=== PATIENT | female | born 1935 | race Caucasian/White ===

== ENCOUNTER 2017-08-28 12:21 | Day surgery (SDC) | payer MEDICARE, OTHER ==
[~2017-08-28] VITALS: Ht 167.6 cm; Wt 68.0 kg
[~2017-08-28 12:21] MED LIST: ADVIL200 M1 PO; ALEVE220 M1 PO; ASPIRIN EC325 MG PO; AUGMENTIN 875-1 EACH PO; CALCIUM600 MG PO; COD LIVER OIL1 EAC1 PO; ESTRADIOL0.5 MG PO; KEFLEX500 MG PO; PROTONIX40 MG PO; TRIAMTERENE-HC1 EAC1 PO
[2017-08-28] MEDS ORDERED: FLOMAX0.4 MG PO (12:42)
[2017-08-28] MEDS ORDERED: NAPROXEN500 MG PO (12:43)
[2017-08-28] MEDS ORDERED: TYLENOL WITH C1 EACH PO (12:44)
--- NOTE | 2017-08-28 14:45 | NUR ---
08/28/17 1445 Concha Alexander 1439 PT ARRIVED IN PACU SLEEPY WITH HICCUPS. 1445 OXYGEN DECREASED TO 2L VIA NC WITH SATS 95%.
--- NOTE | 2017-08-29 10:37 | OR ---
[facility] [address] [place], [place] [address] Signed DATE OF OPERATION: 08/28/2017 SURGEON: Yumiko Willams MD PREOPERATIVE DIAGNOSES: 1. Longstanding gastroesophageal reflux, controlled with medication. 2. Known Rodriguez's esophagus, last upper endoscopy three years ago. POSTOPERATIVE DIAGNOSES: No sign of active esophagitis, minimal Rodriguez's esophagus, good flap valve procedure, esophagogastroduodenoscopy with biopsy. ANESTHESIA: Intravenous sedation, fentanyl 100 mcg, Versed 3 mg. INDICATION: This 81-year-old white woman is a patient of JUANA Ontiveros. She is known to me from the past. She is known to have Rodriguez's esophagus and has no symptoms currently of dysphagia. Surveillance upper endoscopy for her Rodriguez's is recommended as it has been three years since last upper endoscopy. She takes pantoprazole on daily basis and has good control of reflux symptoms. She understands the risks of bleeding, infection, and perforation related upper endoscopy and wished to proceed. FINDINGS: There is no evidence of neoplasm or stricture of the distal esophagus. Rodriguez's esophageal mucosa was noted, but it was not extensive and not worrisome in the slightest. The stomach appeared reasonably normal as did the duodenum. CLOtest biopsies were negative. Duodenum was negative grossly. The flap valve was quite good overall. DESCRIPTION OF PROCEDURE: The patient was brought to the endoscopy suite, given topical Hurricaine spray, hypopharyngeal anesthesia and placed in lateral decubitus position. A bite block was placed. Intravenous sedation was induced and with full cardiopulmonary monitoring, an Olympus video upper endoscope passed in the hypopharynx. The vocal cords appeared normal. Scope was advanced to the esophagus throughout its length, it was normal except in the distal portion where there was some evidence of Rodriguez's epithelium, but not much and certainly no worrisome findings of stricture, neoplasm, inflammation or other abnormality. The scope was passed in the stomach, which was insufflated with air. Rugal folds appeared normal. The antrum was normal as was the pylorus. Biopsies were Electronically Signed By: YUMIKO WILLAMS MD 08/29/17 [facility] PATIENT NAME: CALEB LESTER OPERATIVE REPORT DATE OF : 35 REPORT #: [id number] PHYSICIAN: YUMIKO WILLAMS MD PCP: RACHELE DOWD REPORT IS CONFIDENTIAL AND NOT TO BE RELEASED WITHOUT AUTHORIZATION [facility] [address], [place] [address] Signed taken of the antrum. The scope was passed through the pylorus into the duodenum, which looked normal. Biopsies were obtained there to assess for celiac disease. The scope was withdrawn and biopsy was then taken of the antrum for both MILA and pathologic testing. Retroflexed view of the GE junction showed to be quite good overall, certainly no sign of hiatal hernia. The scope was straightened, withdrawn to the distal esophagus where biopsies were taken the areas corresponding to Rodriguez's epithelium. Further withdrawal of scope showed the midesophagus and upper esophagus mildly inflamed, but not much and biopsies were obtained there as well. The scope was withdrawn and removed. The patient was taken to recovery in good condition. CONCLUDING DIAGNOSIS: Rodriguez's esophagus without evidence of dysplasia, neoplastic degeneration or even active inflammation. PLAN: Recommend continued use of pantoprazole. Return to see me in 1 year sooner if there are problems. MD MAKEDA Carlton/AYE /[id number] cc: JUANA Ontiveros Copies: RACHELE DOWD ~ Electronically Signed By: YUMIKO WILLAMS MD 08/29/17 1037 PATIENT NAME: CALEB LESTER OPERATIVE REPORT DATE OF : 35 REPORT #: [id number] PHYSICIAN: YUMIKO WILLAMS MD PCP: RACHELE DOWD REPORT IS CONFIDENTIAL AND NOT TO BE RELEASED WITHOUT AUTHORIZATION
== END 2017-08-28 15:15 | disposition home or self-care (01) ==
LOC: OPS 12:21 → DS 08-31 13:00
PROVIDERS: Surgery
PROC: 0DB78ZX Excision of Stomach, Pylorus, Via Natural or Artificial Opening Endoscopic, Diagnostic (ICD-10-PCS; 2017-08-28)
PROC: 0DB28ZX Excision of Middle Esophagus, Via Natural or Artificial Opening Endoscopic, Diagnostic (ICD-10-PCS; 2017-08-28)
PROC: 0DB98ZX Excision of Duodenum, Via Natural or Artificial Opening Endoscopic, Diagnostic (ICD-10-PCS; principal; 2017-08-28 13:00)
DX: K22.70 Barrett's esophagus without dysplasia (principal); K29.50 Unspecified chronic gastritis without bleeding; K21.0 Gastro-esophageal reflux disease with esophagitis; K59.09 Other constipation; Z88.2 Allergy status to sulfonamides; Z88.8 Allergy status to other drugs, medicaments and biological substances; Z98.890 Other specified postprocedural states
CPT/HCPCS: 99153; G0500; J2250; J3010; J7120

== ENCOUNTER 2020-06-28 06:05 | Day surgery (SDC) | payer MEDICARE, OTHER ==
[~2020-06-28 06:05] MED LIST changes: +FLOMAX0.4 MG PO; +NAPROXEN500 MG PO; +TYLENOL WITH C1 EACH PO
[2020-06-28] MEDS ORDERED: CIPROFLOXACIN500 MG PO (06:35)
--- NOTE | 2020-06-28 22:51 | OR ---
[facility] [address] [place], [place] [address] Signed DATE OF OPERATION: 06/28/2020 SURGEON: Yumiko Willams MD PREOPERATIVE DIAGNOSES: 1. Known Rodriguez's esophagus. 2. Recurrent urinary tract infection, bladder self-catheterization, known diverticular disease, assessed for colovesical fistula. POSTOPERATIVE DIAGNOSES: 1. Rodriguez's esophagus, diffuse esophagitis and small hiatal hernia. 2. Diffuse gastritis with mild antral erosions. 3. Diverticulosis of sigmoid and left colon, otherwise normal. PROCEDURES: 1. Esophagogastroduodenoscopy with biopsy. 2. Total colonoscopy to cecum. ANESTHESIA: Intravenous sedation, fentanyl 175 mcg and Versed 5 mg total. INDICATION: This 84-year-old white woman is a patient of JUANA Hall and is well known to me from the past. She is known to have Rodriguez's esophagus. Her last upper endoscopy was in 2018. Surveillance endoscopy is recommended on the basis of her Rodriguez's esophagus. She is taking pantoprazole persistently and has good symptom control of her reflux symptoms. Additionally, she has had recurrent urinary tract infection. She has now required to self catheterize due to bladder dysfunction. She is known to have had history of abdominal hysterectomy as well as diverticulosis. She has no pneumaturia complaints. She is to undergo colonoscopy as well in part to assess for possible colovesical fistula. FINDINGS: Upper endoscopy demonstrated Rodriguez's esophagus without sign of stricture or neoplasm. There were erosions of the antrum and mild diffuse gastritis and gastric polyps likely related to PPI use. The duodenum was normal. On colonoscopy, the prep was adequate, but there were still some fibrous materials Electronically Signed By: YUMIKO WILLAMS MD 06/28/20 1447 PATIENT NAME: CALEB LESTER OPERATIVE REPORT DATE OF : 35 REPORT #: [id number] PHYSICIAN: YUMIKO WILLAMS MD PCP: RACHELE GREENE PA-C REPORT IS CONFIDENTIAL AND NOT TO BE RELEASED WITHOUT AUTHORIZATION [facility] [address] [place], [place] [address] Signed including small and so on. Her compliance with dietary recommendations for bowel prep was uncertain. She did have extensive diverticular changes of the sigmoid and left colon. There was no evidence of polyps or inflammatory changes of the colon otherwise. DESCRIPTION OF PROCEDURE: The patient was brought to the endoscopy suite, given topical lidocaine spray anesthesia and placed in lateral decubitus position. A bite block was placed. Intravenous sedation was induced to point of slurred speech and nystagmus. The Olympus video upper endoscope was passed in the hypopharynx. The vocal cords were normal and scope was advanced to the esophagus, throughout its length, it showed mild chronic inflammation and the distal portion showed Rodriguez's esophagus, but no neoplasm or stricture. The scope was passed to the stomach without problem. Gastric polyps were noted. The antrum showed some superficial gastric erosions and mild diffuse gastritis. Pylorus was normal. Scope was passed through into the duodenum, which was normal. Biopsies were taken of the duodenum. Scope was withdrawn. A biopsy was then taken of the antrum and more proximal stomach gallstone undertaken. Retroflexed view of the GE junction showed a somewhat lax flap valve, but no sign of large hiatal hernia. Scope was withdrawn and multiple biopsies were taken of the distal esophagus and area of known Rodriguez's esophagus. Midesophageal biopsies were also obtained. The scope was removed and plans were made for colonoscopy. Additional sedation given. Digital rectal examination was normal. An Olympus video colonoscope was passed in the rectum and manipulated throughout the colon. Numerous diverticula were seen in the sigmoid and left colon. Her prep was adequate, but required a fair amount of irrigation so forth and ultimately, scope was passed to the right colon. Abdominal wall stabilization was required to allow for visualization of the cecum, but it could not be fully intubated proper. The scope was withdrawn from that point. There were no findings of polyps or colitis, only diverticular changes as previously noted. The scope was removed and the patient was taken to the recovery room in good condition. CONCLUDING DIAGNOSIS: 1. Mild diffuse gastritis with superficial erosions and Rodriguez's esophagus. 2. Diverticular changes of sigmoid and left colon. PLAN: Continued use of PPI would be appropriate in her case. High-fiber diet would be appropriate. If she should develop pneumaturia that would confirm some clinical suspicion with possible colovesical fistula. Otherwise, continued monitoring for urinary tract infection and etiologies related to it. She will return to the ongoing care of JUANA Hall. Electronically Signed By: YUMIKO WILLAMS MD 06/28/20 1559 PATIENT NAME: CALEB LESTER OPERATIVE REPORT DATE OF : 35 REPORT #: [id number] PHYSICIAN: YUMIKO WILLAMS MD PCP: RACHELE GREENE PA-C REPORT IS CONFIDENTIAL AND NOT TO BE RELEASED WITHOUT AUTHORIZATION [address] [address] Signed MD MAKEDA Carlton/MODL /[id number] cc: JUANA Hall Copies: RAJENDRA ALEX ~ Electronically Signed By: YUMIKO WILLAMS MD 06/28/20 2251 PATIENT NAME: MELLISAKARICALEB HEIDI OPERATIVE REPORT DATE OF : 35 REPORT #: [id number] PHYSICIAN: YUMIKO WILLAMS MD PCP: RACHELE GREENE PA-C REPORT IS CONFIDENTIAL AND NOT TO BE RELEASED WITHOUT AUTHORIZATION
--- NOTE | 2020-06-30 15:46 | PATH ---
[facility] [address] [place], [place] [address] Signed SPECIMEN(S): A DUODENUM SPECIMEN(S): B ANTRUM/PYLORUS SPECIMEN(S): C LOWER ESOPHAGUS SPECIMEN(S): D MIDDLE ESOPHAGUS SPECIMEN SOURCE: A. DUODENUM B. ANTRUM/PYLORUS C. LOWER ESOPHAGUS D. MIDDLE ESOPHAGUS CLINICAL HISTORY: History of GERD, Rodriguez's, chronic constipation, diverticulosis MICROSCOPIC DESCRIPTION: Histologic sections of all submitted blocks are examined by light microscopy. These findings, together with the gross examination, support the pathologic diagnosis. FINAL PATHOLOGIC DIAGNOSIS: A. Duodenum, biopsy: - Duodenal mucosa with no histopathologic abnormality. - Negative for increased intraepithelial lymphocytes or villous blunting. - Negative for dysplasia or malignancy. B. Stomach, antrum/pylorus, biopsy: - Antral/oxyntic mucosa with reactive gastropathy. - Negative for Helicobacter organisms on HE stain. - Negative for dysplasia or malignancy. C. Esophagus, lower, biopsy: - Squamous mucosa with mild reactive changes, suggestive of reflux esophagitis. - Cardia type gastric mucosa with chronic, inactive gastritis. - Negative for intestinal metaplasia, dysplasia, or malignancy. D. Esophagus, middle, biopsy: - Squamous mucosa with focal mild reactive changes. - Negative for increased intraepithelial eosinophils. - Negative for intestinal metaplasia, dysplasia, or malignancy. NAL:cml:C2NR GROSS DESCRIPTION: Four specimens are received in four containers, labeled "BC." A. The specimen, labeled "BC, one," and designated on the requisition PATIENT NAME: CALEB LESTER PATHOLOGY DATE OF : 35 REPORT #: [id number] PHYSICIAN: JAZMINE BRASWELL PCP: RACHELE GREENE PA-C REPORT IS CONFIDENTIAL AND NOT TO BE RELEASED WITHOUT AUTHORIZATION [facility] [address] [place], [place] [address] Signed "duodenum biopsy," is received in formalin and consists of two tejeda soft tissue fragments that measure 0.3 cm in greatest dimension. The specimen is entirely submitted in cassette (A1). B. The specimen, labeled "BC, 2," and designated on the requisition "antrum/pylorus biopsy," is received in formalin and consists of one elongated, tejeda soft tissue fragment that measures 0.5 cm in greatest dimension. The specimen is entirely submitted in cassette (B1). C. The specimen, labeled "BC, 3," and designated on the requisition "lower esophagus biopsy," is received in formalin and consists of multiple tejeda-white soft tissue fragments that measure less than 0.1 up to 0.5 cm in greatest dimension. The specimen is entirely submitted in cassette (C1). D. The specimen, labeled "BC, 4," and designated on the requisition "mid esophagus biopsy," is received in formalin and consists of two tejeda-white soft tissue fragments that measure 0.2 to 0.4 cm in greatest dimension. The specimen is entirely submitted in cassette (D1). AI (under the direct supervision of a pathologist) The Gross Description was prepared using a voice recognition system. The report was reviewed for accuracy; however, sound-alike word errors, addition and/or deletions may occur. If there is any question about this report, please contact Client Services. PERFORMING LABORATORY: The technical component was performed by [facility], [address] [place] [id number] (Supervisor Molding: Alla Castañeda MD; CLIA# [id number]). [facility], [address] [address] (CLIA# [id number]). Diagnostician: Darleen Bolivar MD Pathologist Electronically Signed 06/30/2020 Copies: ~ PATIENT NAME: CALEB LESTER PATHOLOGY DATE OF : 35 REPORT #: [id number] PHYSICIAN: JAZMINE PATHOLOGY PCP: RACHELE GREENE PA-C REPORT IS CONFIDENTIAL AND NOT TO BE RELEASED WITHOUT AUTHORIZATION
== END 2020-06-28 10:10 | disposition home or self-care (01) ==
LOC: OPS 06:05 → DS 06:05 → OPS 06:45 → DS 13:00
PROVIDERS: ATTEND Surgery
PROC: 0DB28ZX Excision of Middle Esophagus, Via Natural or Artificial Opening Endoscopic, Diagnostic (ICD-10-PCS; 2020-06-28)
PROC: 0DJD8ZZ Inspection of Lower Intestinal Tract, Via Natural or Artificial Opening Endoscopic (ICD-10-PCS; 2020-06-28)
PROC: 0DB38ZX Excision of Lower Esophagus, Via Natural or Artificial Opening Endoscopic, Diagnostic (ICD-10-PCS; principal; 2020-06-28 06:45)
PROC: 0DB78ZX Excision of Stomach, Pylorus, Via Natural or Artificial Opening Endoscopic, Diagnostic (ICD-10-PCS; 2020-06-28 06:45)
DX: K22.70 Barrett's esophagus without dysplasia (principal); K21.00 Gastro-esophageal reflux disease with esophagitis, without bleeding; K44.9 Diaphragmatic hernia without obstruction or gangrene; K25.9 Gastric ulcer, unspecified as acute or chronic, without hemorrhage or perforation; K29.50 Unspecified chronic gastritis without bleeding; K57.30 Diverticulosis of large intestine without perforation or abscess without bleeding; N39.0 Urinary tract infection, site not specified; K59.09 Other constipation; Z20.822 Contact with and (suspected) exposure to COVID-19; Z88.2 Allergy status to sulfonamides; Z88.8 Allergy status to other drugs, medicaments and biological substances; Z90.711 Acquired absence of uterus with remaining cervical stump
CPT/HCPCS: 88305; 99153; G0500; J2250; J3010; J7121; U0003

== ENCOUNTER 2020-09-24 23:47 | Emergency (ER) | payer MEDICARE, OTHER ==
[~2020-09-24] VITALS: Ht 167.6 cm; Wt 68.0 kg
[~2020-09-24 23:47] MED LIST changes: +CIPROFLOXACIN500 MG PO
[2020-09-25] MEDS ORDERED: METRONIDAZOLE500 MG PO (00:09)
== END 2020-09-25 01:50 | disposition home or self-care (01) ==
LOC: ED 23:47
DX: D69.0 Allergic purpura (principal); I10 Essential (primary) hypertension; Z88.2 Allergy status to sulfonamides; Z79.899 Other long term (current) drug therapy
CPT/HCPCS: 80053; 85025; 85610; 85730; 99283

== ENCOUNTER 2021-11-30 05:37 | Day surgery (SDC) | payer MEDICARE, OTHER ==
[~2021-11-30] VITALS: Ht 167.6 cm; Wt 63.6 kg
[~2021-11-30 05:37] MED LIST changes: +ALDACTONE25 MG PO; +CEPHALEXIN250 MG PO; +HYDROCHLOROTHIA25 MG PO; +HYDROCODON-ACE1 EA10 PO; +K-TAB ER20 MEQ PO; +LASIX20 MG PO; +LEVOFLOXACIN750 MG PO; +MAGNESIUM30 MG PO; +MELATONIN1 MG PO; +METRONIDAZOLE500 MG PO; +MYRBETRIQ25 MG PO; +NITROFURANTOIN100 MG PO; +OXYCODONE HCL5 MG PO; +SUCRALFATE1 GM PO
[2021-11-30] MEDS ORDERED: SPIRONOLACTONE25 MG PO (06:06)
[2021-11-30] MEDS ORDERED: METHENAMINE MA500 MG PO (06:08)
--- NOTE | 2021-11-30 07:44 | NUR ---
VISITED WITH PT PRIOR TO SURGERY. PT EXPRESSED LOOKING FORWARD TO THE SURGERY BEING OVER AND HAVING LESS PAIN. PRAYED WITH PT.
--- NOTE | 2021-11-30 09:02 | NUR ---
11/30/21 0902 [address] [place] 0881 PATIENT ARRIVES TO PACU SLEEPING. AWAKENS WITH VERBAL STIMULI. STAYS AWAKE. HEARING AID BACK IN LEFT EAR. PATIENT DENIES PAIN OR NAUSEA. RESP EVEN AND UNLABORED, ROOM AIR SATS >95%.
--- NOTE | 2021-11-30 09:32 | NUR ---
BEDSIDE REPORT RECEIVED FROM KENDRA RN, ALL QUESTIONS ANSWERED. PT LYING AWAKE IN BED VSS. DENIES PAIN AT THIS TIME. HIP INCISION COVERED WITH FOAM DRESSING, CDI. PT ORIENTED TO CALL LIGHT, WITH IN REACH. DENIES NEEDS AT THIS TIME.
--- NOTE | 2021-11-30 10:37 | NUR ---
PT AWAKE IN BED, DENIES PAIN AT THIS TIME. ICE PACK APPLIED TO LEFT HIP. PT STARTING TO BE ABLE TO MOVE BILATERAL LOWER EXTREMITIES. VSS. CALL LIGHT IN REACH.
--- NOTE | 2021-11-30 11:42 | NUR ---
PT RESTING IN BED AWAKE. C/O NAUSEA, REQUESTED CRACKERS DENIES FURTHER INTERVENTION AT THIS TIME. PT STATES SHE IS FEELING PAIN IN LEFT HIP, UNABLE TO RATE. STATES SHE WOULD LIKE TO HAVE LUNCH AND REASSESS NEED FOR PAIN MEDICATION AT THAT TIME. VSS. CALL LIGHT IN REACH.
--- NOTE | 2021-11-30 13:10 | NUR ---
APPROX 1300 PT ASSISTED TO RESTROOM 2 PERSON ASSIST WITH FRONT WHEELED WALKER. PT DENIED DIZZINESS OR LIGHTHEADEDNESS AT THAT TIME. PT INDEPENDENTLY STRAIGHT CATHED IN RESTROOM. UPON AMBULATION BACK TO BED, PT STATED "I FEEL LIGHT HEADED AND SWEATY" PT BECAME UNRESPONSIVE. PT FELL TO KNEE ONTO FLOOR, HELD UNDER ARMS BY 2 RN. ASSISTANCE CALLED. PT THEN BECAME RESPONSIVE, UNAWARE OF EVENTS. ASSISTED TO SHOWER CAHIR THEN 3-4 PERSON ASSIST TO WHEELCHAIR AND TO BED. VITAL SIGNS TAKEN AT 1310 BP 122/87 (99), HR 45, O2 98% ON RA. PT ALERT AND ORIENTED TO PERSON PLACE TIME AND SITUATION. BLOOD GLUCOSE 187. PT ON O2 MONITOR MAINTAINING 97-100% SATRUATIONS ON RA. PT C/O NAUSEA AND FEELING LIGHT HEADED. CALL LIGHT IN REACH.
--- NOTE | 2021-11-30 13:20 | NUR ---
ATTEMTED CALL x2 TO DR COELHO REGARDING PREVIOUS EVENTS AND PT FALL. NO ANSWER, MESSAGE LEFT TO CALL UNIT.
--- NOTE | 2021-11-30 14:10 | NUR ---
SPOKE WITH DR COELHO REGARDING PT BECOMING UNRESPONSIVE. STATES LIKELY FROM ANSETHSIA. NO NEW ORDERS AT THIS TIME.
--- NOTE | 2021-11-30 15:13 | NUR ---
PT RESTING IN BED, AWAKENS EASILY. VITALS SIGNS TAKEN, SEE CHART. STATES NAUSEA HAS IMPROVED. C/O 05/29 BURNING LEFT HIP PAIN, GIVEN SCHEDULED MEDICATIONS, SEE EMAR. ALERT AND ORIENTED X4. LEFT HIP INCISION COVERED WITH FOAM DRESSING, CLEAN DRY INTACT. PT DENIES FURTHER NEEDS AT THIS TIME. CALL LIGHT IN REACH.
--- NOTE | 2021-11-30 15:45 | NUR ---
Spoke with Amena. She states she lives alone in a condo. Neighbor is her friend and their doors are next to each other. Friend will help her with any needs. Pt denies she will have any needs as she has lives alone for many years. Pt has walker, cane, raised toilet seat and a shower chair. Her son is in town and will assist her as needed and will drive her home. She states son will grocery shop for her, but insist she will cook for herself. She denies any needs and plans on dc to home. Pt does states she cont. with slight nausea. Plan is for overnight stay and possibly home tomorrow if no further light headedness.
--- NOTE | 2021-11-30 15:55 | NUR ---
PT RESTING QUIETLY IN BED WITH EYES CLOSED, RESPIRATIONS 16, EVEN AND UNLABORED. AWAKENS EASILY. HR 58 AND O2 SAT 98% ON RA PER MONITOR. PT DENIES NEEDS AT THIS TIME. CALL LIGHT IN REACH.
--- NOTE | 2021-11-30 16:20 | NUR ---
PT RESTING IN BED, AWAKENS EASILY. DENIES NAUSEA AT THIS TIME, PAIN RATED 1/10. DENIES FURTHER NEEDS AT THIS TIME. CAll light in reach.
--- NOTE | 2021-11-30 17:38 | NUR ---
PT UP TO BEDSIDE COMMODE 2 PERSON ASSIST WITH FWW. TOLERATED WELL. DENIES DIZZINESS OR LIGHTHEADEDNESS. PT STRAIGHT CATH 250 ORANGE CLEAR URINE. BACK TO BED. ICE PACK APPLIED. PT DENIES FURTHER NEEDS AT THIS TIME. CALL LIGHT IN REACH.
--- NOTE | 2021-11-30 18:24 | NUR ---
PT SITTING UP AWAKE IN BED. STATES PAIN IS 3/10, GIVEN SCHEDULE MEDS, SEE EMAR. DENIES FURTHER NEEDS AT THIS TIME. CALL LIGHT IN REACH.
--- NOTE | 2021-11-30 18:46 | NUR ---
medications reconciled using pharmacy records and patient interview
--- NOTE | 2021-11-30 19:51 | NUR ---
Patient sleeping in bed. Call light within reach. Bed alarm in place.
--- NOTE | 2021-11-30 21:54 | NUR ---
VITALS COMPLETED. ASSISTED PT UP TO STANDING BY BED, NO NAUSEA, NO DIZZINESS REPORTED. ATTEMPTED TO STRAIGHT CATH, DIFFICULT R/T EQUIPMENT, SURGERY, SO BACK TO BED, THIS RN STRAIGHTED CATH FOR PT. FOOT SCD'S IN PLACE, TEDS, CPOX. FRESH ICE PACK TO LEFT HIP, FRESH ICE WATER, JOSE RAUL CRACKERS, AND VANILLA PUDDING GIVEN. PT WEARS HEATING AIDES, WILL REMOVE ONCE SHE IS READY TO SLEEP. REFUSED TV. RA SATS IN MID-HIGH 90'S.
--- NOTE | 2021-11-30 23:55 | NUR ---
Sleeping in bed. Call light within reach.
--- NOTE | 2021-12-01 04:21 | NUR ---
Uneventful shift. Alert and oriented. Calls appropriately. On RA. Lung sounds clear bilat. Breathing unlabored. Bowel sounds active. No BM on shift. +1 BLE edema. Saline locked. Using self-straight caths to void. Appropriate voiding amounts. Surg dressing has scant amount of serosang drainage. Patient's pain well controlled on scheduled pain meds. Has gotten up w/assist of 1 to bedside commode. Heels have remained floated. Cold therapy has been used on hip. CPOX in place.
--- NOTE | 2021-12-01 06:12 | NUR ---
PT CALLED, WANTED TO SELF CATH. ATTEMPTED IN BED, UNABLE, THOUGHT GETTING UP TO BATHROOM WOULD WORK. AMBULATED WITH 2 PERSON FOR SAFETY, NOTED LEFT FOOT TURNS OUT SOME WHEN SHE WALKS, HAS A SL LIMP, NO COMPLAINT OF PAIN. UNABLE TO FIND THE SPOT TO INSERT THE CATH AFTER MANY ATTEMPTS. BACK TO BED, NEARLY THE DOORWAY OF THE , SHE COMPLAINED OF LIGHT HEADEDNESS. ENCOURAGED DEEP BREATHS, FINISHED TO BED, SHE COMPLAINED OF BEING DISAPPOINTED, STATING SHE THOUGHT SHE WOULD HAVE SLEPT THE DIZZINESS OFF. THIS RN CLEANED BROOK AREA, ST. CATH PATIENT FOR 125 URINE IN URINAL, WITH SOME SPILLAGE ON INCONT PAD. ASSIST PT WITH NEW BATTERIES IN HEARING AID, FRESH ICE WATER, ICE TO LEFT HIP, FOOT PUMPS ON, TOWEL UNDER ANKLES. CPOX CONTINUES. NOTED PT DRANK ONLY 50 ML SINCE 10 PM. ENCOURAGED INCREASE FLUIDS. CALL LIGHT WITHIN REACH.
--- NOTE | 2021-12-01 07:20 | NUR ---
RECIEVED SHIFT REPORT.PT IS RESTING IN BED. CALL LIGHT WITHIN REACH.
--- NOTE | 2021-12-01 07:52 | NUR ---
ADDRESSED WITH JUANA PERALTA ON PTS DECREASE IN BP AND I/O. MICHELLE SUGGESTED PT BP NORMALLY RUNS LOW, AND TO OFFER PO FLUIDS AT THIS TIME. SHE WILL REEVALUATE THIS AFTERNOON.
--- NOTE | 2021-12-01 09:45 | NUR ---
MORNING SCHEDULE COMPLETE. PT LAYING IN BED EATING BREAKFAST. PT STATES PAIN IN LEFT HIP BUT IS TOLERABLE. ICE IN PLACE. DRESSING DRY AND INTACT, SMALL AMOUNT OF SEROSANGUINEOUS DRAINAGE NOTED. CALL LIGHT WITHIN REACH. DENIES FURTHER NEEDS AT THIS TIME.
--- NOTE | 2021-12-01 11:27 | NUR ---
PT RESTING IN BED. DENIES ANY FURTHER NEEDS AT THIS TIME. CALL LIGHT WITHIN REACH.
--- NOTE | 2021-12-01 12:00 | NUR ---
PT EATING LUNCH IN BED. STATES SHE IS FEELING BETTER AND HER APPETITE SEEMS TO BE IMPROVING. CALL LIGHT WITHIN REACH. DENIES FURTHER NEEDS
--- NOTE | 2021-12-01 12:18 | NUR ---
UPDATED MICHELLE ALVAREZ REGARDING PT INTAKE AND OUTPUT. WOULD CONTINUE TO TRY INCREASING ORAL INTAKE. NO NEW ORDERS RECEIVED AT THIS TIME.
--- NOTE | 2021-12-01 12:50 | NUR ---
ENCOURAGED PT TO URINATE, BUT STATES SHE DOESNT HAVE THE URGE TO GO. BLADDER SCAN RESULTS 79 ML. FLUIDS ARE ENCOURAGED.
--- NOTE | 2021-12-01 13:29 | NUR ---
PT RESTING IN BED, POWER HAIR CLIPPER AT BEDSIDE. CALL LIGHT WITHIN REACH.
--- NOTE | 2021-12-01 13:46 | NUR ---
PT IN BED DOING LEG EXCERISES. PT RATES PAIN 6/10 WITH LEG MOVEMENT AND DISCRIBED SHARP PAIN. PT DENIES URGE TO URINATE AT THIS TIME. DRANK 250ML DURING THIS TIME. DENIES FURTHER NEEDS. CALL LIGHT WITHIN REACH.
--- NOTE | 2021-12-01 15:07 | NUR ---
PT STOOD AT BEDSIDE TO URINATE, BUT FELT DIZZY. THE DIZZINESS WENT AWAY ONCE BACK IN BED. PT STRAIGHT CATHED 225 ML. PT COMPLAINS OF LEFT LEG PAIN, REPOSITIONING AND ICE APPLIED TO HIP. CALL LIGHT WITHIN REACH.
--- NOTE | 2021-12-01 17:16 | NUR ---
PT RESTING IN BED. DENIES FURTHER NEEDS. CALL LIGHT WITHIN REACH.
--- NOTE | 2021-12-01 17:51 | NUR ---
PT LAYING IN BED. PT STATES PAIN HAS DECREASED AFTER PAIN MEDICATION BUT STILL "SPASMS". CALL LIGHT WITHIN REACH.
--- NOTE | 2021-12-01 19:34 | NUR ---
Patient sleeping in bed. Call light within reach.
--- NOTE | 2021-12-02 00:16 | NUR ---
Patient sleeping in bed. Call light within reach.
--- NOTE | 2021-12-02 04:07 | NUR ---
Uneventful shift. Alert and oriented. Complains of dizziness w/standing. Claims to be unable to do self catheterizations. Calls appropriately. Lung sounds clear. On RA. Bowel sounds active. Refused BM meds at HS. Ambulates w/assist of 1 and walker. Pain controlled w/PRN 5mg oxycodone. SCD's and KORI's in use. Saline locked. Adequate intake. Output increasing. This nurse has assisted w/straight caths.
--- NOTE | 2021-12-02 05:35 | NUR ---
Patient assisted to BR w/assist of 1 and walker. Able to straight cath self in BR. 400 ml output. Assisted back to bed. Patient rates LLE pain 3/10. Denies dizziness/light headedness. Vitals stable at this time.
--- NOTE | 2021-12-02 05:40 | NUR ---
IN TO ASSIST PT UP TO THE TOILET, 1PA FWW, SELF CATH, BACK TO BED, VS DONE, ICE AND ICE WATER REFRESHED, NO FURTHER NEEDS AT THIS TIME
--- NOTE | 2021-12-02 06:53 | OR ---
[facility] [address], [place] [address] Signed DATE OF OPERATION: 11/30/2021 SURGEON: Alvarez Don MD PREOPERATIVE DIAGNOSIS: Avascular necrosis, left hip. POSTOPERATIVE DIAGNOSIS: Avascular necrosis, left hip. PROCEDURE PERFORMED: Left total hip arthroplasty. TUMBLER DYEING MACHINE OPERATOR: Isabel Nicole PA-C. Isabel was present and critical for all portions of procedure. ANESTHESIA: Spinal. BLOOD LOSS: 165 mL. IMPLANTS: Jamal Accolade II size 5 stem, 50 mm cup and -2.5 head. BRIEF HISTORY: Amena is an 86-year-old female with progressive worsening of severe pain. Risks and benefits of the operative treatment were discussed with her and she elected to proceed. Once consent was obtained, she was taken to the operating room. After adequate anesthesia, she was placed in the right lateral decubitus position with an axillary roll. All downside pressure points well padded. The hip was then prepped and draped in a standard sterile fashion. The standard anterolateral approach through the skin and subcutaneous tissue was taken down to the IT band. The IT band was split longitudinally and the vastus lateralis was split from the tip of the trochanter distally along the anterior margin of the femur and elevated subperiosteally. The incision was then taken down to the femoral neck along the anterior aspect of the greater trochanter and up the femoral neck to the acetabular rim. It was then peeled anteriorly off the anterior femoral neck. The partial capsulectomy was performed and the hip was dislocated and the femoral neck cut was made one fingerbreadth above the lesser trochanter. The Electronically Signed By: ALVAREZ DON MD 12/02/21 0653 PATIENT NAME: AMENA LESTER OPERATIVE REPORT DATE OF : 35 REPORT #: [id number] PHYSICIAN: ALVAREZ DON MD PCP: RACHELE GREENE PA-C REPORT IS CONFIDENTIAL AND NOT TO BE RELEASED WITHOUT AUTHORIZATION [facility] [address], [place] [address] Signed periacetabular soft tissue was removed. The pulvinar was removed. The acetabulum was then reamed starting with a 45 and going to 50. The 50 cup was then impacted, 23 degrees of anteversion and 40 degrees of abduction. The bone was fairly soft. We placed two screws in the posterior superior quadrant. Excellent purchase was obtained. The acetabular liner was impacted. Attention was turned to proximal femur, which was opened using the Liquid cutter, followed by the Bailey awl. We then utilized the lateralize reamer. The femur was then broached starting with 1 going to a 5 and the 5 was found to be well fitting. The 5 was left in position and a high offset neck was initially used with 0, this was a little too tight. We then reduced to a standard offset -2.5, which reduced quite nicely, was stable with negative Shuck test. Leg lengths were found to be equal. The hip was dislocated and the trial was removed. The final stem was impacted until it was well-seated and the -2.5 ceramic head was placed. The hip was reduced taken through range of motion 100 degrees of flexion, 25 and 30 of internal-external rotation with good leg lengths. The wound was copiously irrigated throughout the procedure. A total of 3 L normal saline was used with an IrriSept soak in the middle. The capsule was then closed using #1 Vicryl. The vastus and IT band layers were closed independently using #2 Stratafix, subcutaneous tissue with 0-Quill and the skin with vani. Wound was dressed with an Acticoat-7 dressing. She was awakened and taken to the recovery room in satisfactory condition. All sponge, needle, and instrument counts were correct. Alvarez Don MD BA/MODL /[id number] Copies: ~ Electronically Signed By: ALVAREZ DON MD 12/02/21 0653 PATIENT NAME: AMENA LESTER OPERATIVE REPORT DATE OF : 35 REPORT #: [id number] PHYSICIAN: ALVAREZ DON MD PCP: RACHELE GREENE PA-C REPORT IS CONFIDENTIAL AND NOT TO BE RELEASED WITHOUT AUTHORIZATION
--- NOTE | 2021-12-02 08:07 | NUR ---
PT REFUSED TO GET OUT OF BED THIS AM. WILL APPROACH AGAIN LATER NURSE NOTIFIED. CALL LIGHT WITHIN REACH.
--- NOTE | 2021-12-02 08:25 | NUR ---
PT WAS IN BED WHEN I ARRIVED. PT SHARED SHE WAS STAYING AT THE HOSPITAL LONGER THAN EXPECTED BECAUSE RECOVERY WAS NOT GOING FAST SHE WANTED. PT SHARED SHE LIVED ALONE AND FELT CONDFIDENT THE STAFF WAS DOING THE BEST THING FOR HER. PRAYED WITH PT.
--- NOTE | 2021-12-02 08:33 | NUR ---
COMPLETE SET OF ORTHOS COMPLETED, PATIENT EXPERIENCED INCREASE IN PAIN STANDING FOR 3 MINUTES, RATED PAIN 4/10 AND APPEARED ANXIOUS BY THE END. PATIENT THEN MOVED TO RECLINER, SET UP FOR BREAKFAST. DISCUSSED POC FOR DAY, PATIENT AGREED. PATIENT REPORTED PASSING GAS, BUT HAS NOT HAD A BM YET. PATIENT APPEARS TO HAVE TROUBLE LIFTING SURGICAL LEG UP TO TAKE A STEP TO THE SIDE, BUT ABLE TO TAKE STEPS FORWARD. PATIENT ABLE TO USE IS, ELEVATED WAFER TO 1500 ML. PROVIDED EDUCATION ON PREVENTION OF PNEAMONIA. SN ADMINISTERED MORNING MEDICATIONS. DRESSING TO LEFT HIP, INTACT WITH NO NEW DRAINAGE. PEDAL PULES STRONG.
--- NOTE | 2021-12-02 10:47 | NUR ---
PATIENT BACK IN BED AFTER MEAL. VITALS AND I/O'S COMPLETED, PT HAS NO OTHER NEEDS AT THIS TIME. CALL LIGHT WITHIN REACH.
--- NOTE | 2021-12-02 11:18 | NUR ---
NS Student and instructor walked into patient room to administer PRN pain medication. Obtatined vital signs before administration. Vital signs were within normal limits. Asked patient to state what there pain was rated on a scale from 0-10. Patient stated "8 or 9 when walking around". Asked patient to state their name and before administration of medication. Scanned both the wristband of the patient and the medication for verification. Put the patient's head up in bed before taking the medication. Patient tolerated taking the medication and had no concerns. Lowered head to where patient preferred, put side table within reach, and call light within reach.
--- NOTE | 2021-12-02 11:46 | NUR ---
Patient was laying in bed. NS Student was obtaining vitals before giving patient PRN medication. Asked patient about pain, and patient stated on a scale of 0-10 "8 or 9 when ambulatory". Patient had no other concerns. Call light was within reach.
--- NOTE | 2021-12-02 13:53 | NUR ---
PATIENT IN BED RESTING. VITALS AND I/O'S COMPLETED, ICE WATER GIVEN. PT HAS NO OTHER NEEDS AT THIS TIME. CALL LIGHT WITHIN REACH.
--- NOTE | 2021-12-02 15:46 | NUR ---
Patient resting in bed, no distress. Admin tylenol per schedule. Patient reports tolerable left hip pain at this time. Left hip dressing id CDI at this time. No current needs, personal supplies and call light within reach.
--- NOTE | 2021-12-02 18:02 | NUR ---
PATIENT LYING IN BED AFTER MEAL. VITALS AND INPUT COMPLETED. PATIENT REFUSED TO CATH HERSELF AT THIS TIME, NURSE NOTIFIED. PT HAS NO OTHER NEEDS AT THIS TIME. CALL LIGHT WITHIN REACH.
--- NOTE | 2021-12-02 20:08 | NUR ---
Patient sleeping in bed. Call light within reach.
--- NOTE | 2021-12-03 00:57 | NUR ---
Patient requesting PRN oxycodone for L hip pain. Denies other needs at this time. Call light within reach.
--- NOTE | 2021-12-03 03:43 | NUR ---
Uneventful shift. Alert and oriented. Calls appropriately. Lung sounds clear bilat. On RA. Denies dizziness. Pain well controlled w/sceduled tylenol and PRN oxycodone. Has been able to self cath. Drainage on dressing remains unchanged. Adequate intake and output. Bowel sounds active. Patient did not refuse HS bowel meds. No nausea.
[2021-12-03] MEDS ORDERED: OXYCODONE HCL5 MG PO (09:15)
[2021-12-03] MEDS ORDERED: XARELTO10 MG PO (09:21)
--- NOTE | 2021-12-03 09:51 | NUR ---
PATIENT IN BED AFTER MEAL. VITALS AND I/O'S COMPLETED, PT HAS NO OTHER NEEDS AT THIS TIME. CALL LIGHT WITHIN REACH.
--- NOTE | 2021-12-03 11:23 | NUR ---
Patient sitting up in chair watching tv, no distress. Dressing to left hip is CDI. Patient reports tolerable pain at this time. Personal supplies and call light within reach.
--- NOTE | 2021-12-03 12:39 | NUR ---
Admin oxycodone 5mg po for reports of 3/10 left hip pain.
== END 2021-12-03 13:30 | disposition home or self-care (01) ==
LOC: DS 05:37 → MS 09:20 → DS 12-03 13:30
PROVIDERS: ATTEND Specialist
PROC: 0SRB0JZ Replacement of Left Hip Joint with Synthetic Substitute, Open Approach (ICD-10-PCS; principal; 2021-11-30 07:30)
DX: M16.12 Unilateral primary osteoarthritis, left hip (principal); M87.9 Osteonecrosis, unspecified; I10 Essential (primary) hypertension; R42 Dizziness and giddiness; R33.9 Retention of urine, unspecified; N39.0 Urinary tract infection, site not specified; Z88.1 Allergy status to other antibiotic agents; Z88.2 Allergy status to sulfonamides; Z88.8 Allergy status to other drugs, medicaments and biological substances
CPT/HCPCS: 36415; 72170; 80053; 83735; 97110; 97116; 97161; 97530; A9270; C1713; C1776; J0690; J2001; J2704; J7121

== ENCOUNTER 2021-12-07 11:00 | Observation (INO) | payer MEDICARE, OTHER ==
[~2021-12-07] VITALS: Ht 167.6 cm; Wt 69.0 kg
[~2021-12-07 11:00] MED LIST changes: +METHENAMINE MA500 MG PO; +SPIRONOLACTONE25 MG PO; +XARELTO10 MG PO
--- OUTSIDE RECORDS SUMMARY | 2021-12-07 11:02 | XMS ---
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 EFernando VISIT COUNT (12 MO.) 2 [facility] TOTAL 2 NOTE: Visits indicate total known visits. ED/UCC VISIT TRACKING (12 MO.) 12/07/2021 11:01 [facility] [place] TYPE: Emergency COMPLAINT: - STROKE SYMPTOMS 10/04/2021 12:20 [facility] [place] TYPE: Emergency COMPLAINT: - CHEST PAIN, HEADACHE INPATIENT VISIT TRACKING (12 MO.) 10/04/2021 12:21 [facility] [place] TYPE: Observation COMPLAINT: - HYPONATREMIA, HYPOKALEMIA DIAGNOSES: - Hypokalemia - Allergy status to sulfonamides - Do not resuscitate - Pseudomonas (aeruginosa) (mallei) (pseudomallei) as the cause of diseases classified elsewhere - Other chest pain - Urinary tract infection, site not specified - Allergy status to other antibiotic agents - Other specified disorders of bladder - Hypo-osmolality and hyponatremia - Gastro-esophageal reflux disease without esophagitis - Solitary pulmonary nodule - Adverse effect of carbonic-anhydrase inhibitors, benzothiadiazides and other diuretics, initial encounter - Essential (primary) hypertension - Hypomagnesemia - Contact with and (suspected) exposure to COVID-19 - Allergy status to other drugs, medicaments and biological substances - Unilateral primary osteoarthritis, left hip [email or web address]
[2021-12-07] MEDS ORDERED: POTASSIUM CHLO10 ME1 PO (13:32)
[2021-12-07] MEDS ORDERED: PANTOPRAZOLE SO40 MG PO (13:32)
[2021-12-07] MEDS ORDERED: METHENAMINE HIPP1 GM PO (13:32)
--- NOTE | 2021-12-07 14:47 | NUR ---
PATIENT TO MED SURG, MOVED TO BED. VITALS DONE. ECHO IN ROOM AT THIS TIME.
[2021-12-07] MEDS ORDERED: FUROSEMIDE20 MG PO (16:54)
[2021-12-07] MEDS ORDERED: MYRBETRIQ25 MG PO (16:56)
[2021-12-07] MEDS ORDERED: ACETAMINOPHEN-1 EAC1 PO (16:58)
--- NOTE | 2021-12-07 17:12 | NUR ---
Patient awake in bed, a&ox4, no distress. Patient's speech is clear and appropriate. Patient tolerates po intake well, snack provided at this time. No notable neurological defecits with focused neuro checks. Patient close to RN station. No needs, personal supplies and call light within reach.
--- NOTE | 2021-12-07 19:04 | NUR ---
Oxycodone 5mg po admin at this time for reports of 5/10 left hip pain.
--- NOTE | 2021-12-07 20:30 | NUR ---
IN ROOM TO COLLECT VS AND I&O'S, SBP LOW WITH MANUAL RESULT OF 104/48, HR 79. PER EMAR, SCHEDULED NICARDIPINE TO BE HELD IF SBP <120, DR MENDEZ MADE AWARE AND OKAY TO HOLD. pt ALSO REPORTS WANTING TO TAKE HER HOME MEDICATION METHENAMINE HIPPURATE TO HELP PREVENT UTI'S D/T HER SELF CATHING, pt STATES, "IT'S VERY IMPORTANT THAT I TAKE IT AND I'M GONNA TAKE IT REGARDLESS". DR MENDEZ MADE AWARE, UNFORTUNATELY THE MEDICATION IS NOT AVAILABLE IN [facility] AND pt DID NOT BRING THE MED IN THE ORIGINAL PILL BOTTLE SO TELEPHARMACY CANNOT VERIFY, PER DR MENDEZ, pt WILL BE FINE WITHOUT EVENING DOSE AND pt LIKELY TO BE DISCHARGED TOMORROW AND CAN RESUME MEDICATION AT HOME. pt UPDATED ON CONVERSATION WITH MD MENDEZ AND pt VERBALIZES UNDERSTANDING AND VERBALIZES SHE CAN HAVE FAMILY BRING MORE OF THE MEDICATION IN THE ORIGINAL PILL BOTTLE TONIGHT OR TOMORROW AND SHE CAN RESUME IT THEN IF SHE WANTS TO START IT BEFORE SHE GETS DISCHARGED. PRIMARY ELBA DESIR UPDATED AND AWARE. BED ALARM ON FOR SAFETY AND CALL LIGHT IN REACH. pt CURRENTLY HAS INDWELLING CARTER CATHETER AND HAD 50MLS OUTPUT, PRIMARY ELBA DESIR AWARE.
--- NOTE | 2021-12-08 00:33 | NUR ---
pt RESTING IN BED WITH EYES CLOSED, ON RA. RR EVEN AND UNLABORED. TELE#[address], NSR, RATE 60'S. NO DISTRESS NOTED. CALL LIGHT IN REACH, BED ALARM ON.
--- NOTE | 2021-12-08 01:56 | NUR ---
CALL LIGHT ANSWERED, PRN PAIN MEDICATION FOR REPORTED 3/10 PAIN, SEE EMAR. NO ADDITIONAL NEEDS. CALL LIGHT IN REACH. AND BED ALARM ON FOR SAFETY.
--- NOTE | 2021-12-08 04:29 | NUR ---
pt resting in bed, on ra. rr even and unlabored. no distress noted. bed alarm remains on for safety and call light in reach.
--- NOTE | 2021-12-08 05:24 | NUR ---
assessment complete per request of primary davey swartz. pt a/ox4, neuro check wnl. pt denies pain and nausea, bed alarm on for safety and call light inr each. vss, minimal output noted to billings. total output noted thus far this shift 200mls, primary davey swartz aware and in room.
--- NOTE | 2021-12-08 06:21 | NUR ---
prn pain medication given-see emar. pt reports 2/10 pain, pt educated on difference between tylenol and oxycodone, pt declines tylenol and wants oxycodone per her dc instructions from dr langston. no further needs, call light in reach.
--- NOTE | 2021-12-08 06:28 | NUR ---
dr strickland made aware of uo for shift, only had 210mls out for the shift and per hospitalist parameters pt to void 414 mls. billings patent and draining wnl, pt also bladder scanned as well, with nothing in bladder. pt i&o's balancing out and pt was sl this shift. no new orders received at this time. call light in reach and bed alarm on for safety.
--- NOTE | 2021-12-08 07:00 | NUR ---
pt am cares done. pt up in chair call light within reach no further tasks at this time
--- NOTE | 2021-12-08 08:00 | NUR ---
REPORT RECEIVED FROM NIGHT RN AND PT CARE RESUMED. SHE IS ALERT AND ORIENTED TO ALL. ASSESSMENT COMPLETED AND NO NEW NEURO DEFICITS NOTED. LEFT HIP DRESSING IS DRY AND INTACT WITH A SMALL AMOUNT OF BROWN SHADOWING. SHE DENIES PAIN. DISCUSSED POC, DISCHARGE PLAN, CVA EDUCATION. LEFT RESTING WITH CALL LIGHT IN REACH.
[2021-12-08] MEDS ORDERED: LIPITOR40 MG PO (10:15)
[2021-12-08] MEDS ORDERED: LO-DOSE ASPIRIN81 MG PO (10:16)
--- NOTE | 2021-12-08 10:27 | NUR ---
CARTER D/C'D WNL, URINE CLEAR AND YELLOW. PRN OXYCODONE GIVEN FOR LEFT HIP PAIN IN ANTICIPATION OF D'C TO HOME.
--- NOTE | 2021-12-08 12:15 | NUR ---
PT DISCHARGED TO HOME WITH AND ALL PERSONAL BELONGINGS. VITALS STABLE, IV D/C'D WNL, DISCHARGE TEACHING DONE, PT EXPRESSED UNDERSTANDING AND PRINTED PACKET GIVEN TO PT. PT LEFT FLOOR WITH HIP HOP ARTIST AND WITH ALL PERSONAL BELONGINGS. PT SAFE SLIP SENT WITH PT TO RETEIVE MEDICATION FROM SAFE. PO PAIN MEDS GIVEN PRIOR TO D/C, PAIN UNDER CONTROL AT TIME OF D/C.
--- NOTE | 2021-12-08 12:47 | EKG ---
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
== END 2021-12-08 12:15 | disposition home or self-care (01) ==
LOC: ED 11:00 → MS 11:02
PROVIDERS: ADMIT Internal Medicine; ATTEND Internal Medicine
DX: G45.1 Carotid artery syndrome (hemispheric) (principal); I10 Essential (primary) hypertension; K21.9 Gastro-esophageal reflux disease without esophagitis; N31.9 Neuromuscular dysfunction of bladder, unspecified; E78.5 Hyperlipidemia, unspecified; E87.1 Hypo-osmolality and hyponatremia; Z88.8 Allergy status to other drugs, medicaments and biological substances; Z88.2 Allergy status to sulfonamides; Z20.822 Contact with and (suspected) exposure to COVID-19
CPT/HCPCS: 36415; 51702; 70450; 70496; 70498; 71045; 80053; 80061; 83036; 84484; 85025; 85379; 85610; 85730; 87502; 93005; 93010; 93306; 99285-25; A9270; C9803; G0378; Q3014; Q9967; U0003

== ENCOUNTER 2022-03-04 11:40 | Emergency (ER) | payer MEDICARE, OTHER ==
[~2022-03-04] VITALS: Ht 167.6 cm; Wt 63.8 kg
[~2022-03-04 11:40] MED LIST changes: +ACETAMINOPHEN-1 EAC1 PO; +ATORVASTATIN CA40 MG PO; +ESTRADIOL42.5 GM VG; +FUROSEMIDE20 MG PO; +LIPITOR40 MG PO; +LO-DOSE ASPIRIN81 MG PO; +METHENAMINE HIPP1 GM PO; +PANTOPRAZOLE SO40 MG PO; +POTASSIUM CHLO10 ME1 PO; +TRAZODONE HCL50 MG PO
--- OUTSIDE RECORDS SUMMARY | 2022-03-04 11:42 | XMS ---
PreManage Notification: CALEB LESTER Security Loader Demolder Events No recent Security Events currently on file CRITERIA MET - [facility] - [facility] in [facility] Days [facility] RACHELE GREENE Physician Earth Science Professor Current PHONE: Unknown Lukasz has no Care Guidelines for this patient. EFernando VISIT COUNT (12 MO.) 4 [facility] TOTAL 4 NOTE: Visits indicate total known visits. ED/UCC VISIT TRACKING (12 MO.) 03/04/2022 11:40 [facility] [place] TYPE: Emergency COMPLAINT: - SKIN PROBLEM 02/27/2022 15:18 [facility] [place] TYPE: Emergency COMPLAINT: - RT HAND LACERATION DIAGNOSES: - Striking against other object with subsequent fall, initial encounter - Gastro-esophageal reflux disease without esophagitis - Other blueprint maker (current) drug therapy - Laceration without foreign body of right forearm, initial encounter - Allergy status to sulfonamides - oral therapist (current) use of aspirin - Laceration without foreign body of right upper arm, initial encounter - Essential (primary) hypertension - Allergy status to other antibiotic agents - Allergy status to other drugs, medicaments and biological substances 12/07/2021 11:01 [facility] [place] TYPE: Emergency COMPLAINT: - STROKE SYMPTOMS 10/04/2021 12:20 [facility] [place] TYPE: Emergency COMPLAINT: - CHEST PAIN, HEADACHE INPATIENT VISIT TRACKING (12 MO.) 12/07/2021 11:02 [facility] [place] TYPE: Observation COMPLAINT: - STROKE VS TIA DIAGNOSES: - Allergy status to sulfonamides - Neuromuscular dysfunction of bladder, unspecified - Gastro-esophageal reflux disease without esophagitis - Contact with and (suspected) exposure to COVID-19 - Allergy status to other drugs, medicaments and biological substances - Hyperlipidemia, unspecified - Carotid artery syndrome (hemispheric) - Hypo-osmolality and hyponatremia - Essential (primary) hypertension 10/04/2021 12:21 [facility] [place] TYPE: Observation COMPLAINT: - HYPONATREMIA, HYPOKALEMIA DIAGNOSES: - Contact with and (suspected) exposure to COVID-19 - Allergy status to other drugs, medicaments and biological substances - Unilateral primary osteoarthritis, left hip - Hypokalemia - Allergy status to sulfonamides - Do not resuscitate - Pseudomonas (aeruginosa) (mallei) (pseudomallei) as the cause of diseases classified elsewhere - Other chest pain - Urinary tract infection, site not specified - Allergy status to other antibiotic agents - Other specified disorders of bladder - Hypo-osmolality and hyponatremia - Solitary pulmonary nodule - Gastro-esophageal reflux disease without esophagitis - Adverse effect of carbonic-anhydrase inhibitors, benzothiadiazides and other diuretics, initial encounter - Essential (primary) hypertension - Hypomagnesemia [id number]
[2022-03-04] MEDS ORDERED: CEPHALEXIN500 M1 PO (13:05)
== END 2022-03-04 13:42 | disposition home or self-care (01) ==
LOC: ED 11:40
DX: S51.811D Laceration without foreign body of right forearm, subsequent encounter (principal); L08.9 Local infection of the skin and subcutaneous tissue, unspecified; W19.XXXD Unspecified fall, subsequent encounter; K21.9 Gastro-esophageal reflux disease without esophagitis; I10 Essential (primary) hypertension; Z88.1 Allergy status to other antibiotic agents; Z88.2 Allergy status to sulfonamides; Z88.8 Allergy status to other drugs, medicaments and biological substances; Z79.899 Other long term (current) drug therapy; Z79.82 Long term (current) use of aspirin
CPT/HCPCS: 99283; A9270

== ENCOUNTER 2022-10-16 16:35 | Inpatient (IN) | payer OTHER, MEDICARE ==
[~2022-10-16] VITALS: Ht 167.6 cm; Wt 68.3 kg
--- OUTSIDE RECORDS SUMMARY | ~2022-10-16 | XMS | Continuity of Care Document ---
Demographics + + + | Address | [address] | | | [place] [address] | + + + | Preferred Language | Unknown | + + + | Marital Status | | + + + | Hinduism Affiliation | Unknown | + + + | Race | White | + + + | Ethnic Group | Not or | + + + Author + + + | Author | [facility] | + + + | Organization | [facility] | + + + | Address | [address] | | | [place] [address] | + + + | Phone | | + + + Care Team Providers + + + + | Care Retail Associate Manager Bilingual Name | Role | Phone | + + + + Unavailable | Unavailable | + + + + Unavailable | Unavailable | + + + + Unavailable | Unavailable | + + + + Unavailable | Unavailable | + + + + Allergies and Intolerances + + + + + + | date | description | facility | reaction | severity | + + + + + + | (no date) | Doxycycline | [facility] | (no reaction) | (no severity) [facility] | | | + + + + + + | (no date) | Gabapentin | [facility] | (no reaction) | (no severity) | [facility] | | | + + + + + + | (no date) | Gabapentin | [facility] | (no reaction) | (no severity) | | [facility] | | | + + + + + + | (no date) | Mild | [facility] | (no reaction) | (no severity) | | [facility] | | | + + + + + + | (no date) | Rash | [facility] | (no reaction) | (no severity) | | [facility] | | | + + + + + + | (no date) | Doxycycline | [facility] | (no reaction) | (no severity) | | [facility] | | | + + + + + + | (no date) | Gabapentin | [facility] | (no reaction) | (no severity) | | [facility] | | | + + + + + + | (no date) | Sulfa | [facility] | (no reaction) | (no severity) | | | (Sulfonamide | | | | | | Antibiotics) | | | | + + + + + + | (no date) | doxycycline | [facility] | (no reaction) | (no severity) | + + + + + + | (no date) | gabapentin | [facility] | (no reaction) | (no severity) | + + + + + + | (no date) | Doxycycline | [facility] | (no reaction) | (no severity) | [facility] | | | + + + + + + Encounters No information. Functional Status No information. Immunizations + + + + | date | description | facility | + + + + | 2015-02-17 00:00 | DTaP | [facility] | + + + + | 2015-02-17 00:00 | DTaP | [facility] | + + + + Medications + + + + | date | description | facility | + + + + | 2021-10-12 00:00 | OXYCODONE HCL | [facility] | + + + + | 2021-12-03 00:00 | OXYCODONE HCL | [facility] | + + + + | 2021-12-03 00:00 | OXYCODONE HCL | [facility] | + + + + | 2021-12-08 00:00 | OXYCODONE HCL | [facility] | + + + + | 2022-02-27 00:00 | OXYCODONE HCL | [facility] | + + + + | 2022-03-04 00:00 | OXYCODONE HCL | [facility] | + + + + | 2021-08-28 00:00 | NAPROXEN SODIUM | [facility] | + + + + | 2021-09-15 00:00 | NAPROXEN SODIUM | [facility] | + + + + | 2021-10-12 00:00 | NAPROXEN SODIUM | [facility] | + + + + | 2021-12-03 00:00 | NAPROXEN SODIUM | [facility] | + + + + | 2021-12-08 00:00 | NAPROXEN SODIUM | [facility] | + + + + | 2022-02-27 00:00 | NAPROXEN SODIUM | [facility] | + + + + | 2022-03-04 00:00 | NAPROXEN SODIUM | [facility] | + + + + | 2021-12-03 00:00 | RIVAROXABAN | [facility] | + + + + | 2021-12-03 00:00 | RIVAROXABAN | [facility] | + + + + | 2021-10-12 00:00 | MIRABEGRON | [facility] | + + + + | 2021-12-08 00:00 | MIRABEGRON | [facility] | + + + + | 2022-02-27 00:00 | MIRABEGRON | [facility] | + + + + | 2022-03-04 00:00 | MIRABEGRON | [facility] | + + + + | 2021-10-12 00:00 | POTASSIUM CHLORIDE | [facility] | + + + + | 2021-12-03 00:00 | POTASSIUM CHLORIDE | [facility] | + + + + | 2021-12-08 00:00 | POTASSIUM CHLORIDE | [facility] | + + + + | 2022-02-27 00:00 | POTASSIUM CHLORIDE | [facility] | + + + + | 2022-03-04 00:00 | POTASSIUM CHLORIDE | [facility] | + + + + | 2021-10-12 00:00 | NITROFURANTOIN | [facility] | | | MACROCRYSTAL | | + + + + | 2021-12-03 00:00 | NITROFURANTOIN | [facility] | | | MACROCRYSTAL | | + + + + | 2021-12-08 00:00 | NITROFURANTOIN | [facility] | | | MACROCRYSTAL | | + + + + | 2022-02-27 00:00 | NITROFURANTOIN | [facility] | | | MACROCRYSTAL | | + + + + | 2022-03-04 00:00 | NITROFURANTOIN | [facility] | | | MACROCRYSTAL | | + + + + | 2022-03-04 00:00 | CEPHALEXIN | [facility] | + + + + | 2021-08-28 00:00 | NAPROXEN | [facility] | + + + + | 2021-09-15 00:00 | NAPROXEN | [facility] | + + + + | 2021-10-12 00:00 | NAPROXEN | [facility] | + + + + | 2021-12-03 00:00 | NAPROXEN | [facility] | + + + + | 2021-12-08 00:00 | NAPROXEN | [facility] | + + + + | 2022-02-27 00:00 | NAPROXEN | [facility] | + + + + | 2022-03-04 00:00 | NAPROXEN | [facility] | + + + + | 2021-08-28 00:00 | ASPIRIN | [facility] | + + + + | 2021-09-15 00:00 | ASPIRIN | [facility] | + + + + | 2021-10-12 00:00 | ASPIRIN | [facility] | + + + + | 2021-12-03 00:00 | ASPIRIN | [facility] | + + + + | 2021-12-08 00:00 | ASPIRIN | [facility] | + + + + | 2022-02-27 00:00 | ASPIRIN | [facility] | + + + + | 2022-03-04 00:00 | ASPIRIN | [facility] | + + + + | 2021-10-05 00:00 | MELATONIN | [facility] | + + + + | 2021-12-03 00:00 | FUROSEMIDE | [facility] | + + + + | 2021-12-08 00:00 | FUROSEMIDE | [facility] | + + + + | 2022-02-27 00:00 | FUROSEMIDE | [facility] | + + + + | 2022-03-04 00:00 | FUROSEMIDE | [facility] | + + + + | 2021-08-28 00:00 | CALCIUM CARBONATE | [facility] | + + + + | 2021-09-15 00:00 | CALCIUM CARBONATE | [facility] | + + + + | 2021-12-03 00:00 | MAGNESIUM | [facility] | + + + + | 2021-12-08 00:00 | MAGNESIUM | [facility] | + + + + | 2022-02-27 00:00 | MAGNESIUM | [facility] | + + + + | 2022-03-04 00:00 | MAGNESIUM | [facility] | + + + + | 2021-08-28 00:00 | PANTOPRAZOLE SODIUM | [facility] | + + + + | 2021-09-15 00:00 | PANTOPRAZOLE SODIUM | [facility] | + + + + | 2021-10-05 00:00 | PANTOPRAZOLE SODIUM | [facility] | + + + + | 2021-10-12 00:00 | PANTOPRAZOLE SODIUM | [facility] | + + + + | 2021-12-03 00:00 | PANTOPRAZOLE SODIUM | [facility] | + + + + | 2021-12-08 00:00 | PANTOPRAZOLE SODIUM | [facility] | + + + + | 2022-02-27 00:00 | PANTOPRAZOLE SODIUM | [facility] | + + + + | 2022-03-04 00:00 | PANTOPRAZOLE SODIUM | [facility] | + + + + | 2021-12-08 00:00 | ASPIRIN | [facility] | + + + + | 2021-10-12 00:00 | CEPHALEXIN MONOHYDRATE | [facility] | + + + + | 2021-12-03 00:00 | CEPHALEXIN MONOHYDRATE | [facility] | + + + + | 2021-12-08 00:00 | CEPHALEXIN MONOHYDRATE | [facility] | + + + + | 2022-02-27 00:00 | CEPHALEXIN MONOHYDRATE | [facility] | + + + + | 2022-03-04 00:00 | CEPHALEXIN MONOHYDRATE | [facility] | + + + + | 2021-08-28 00:00 | CIPROFLOXACIN HCL | [facility] | + + + + | 2021-09-15 00:00 | CIPROFLOXACIN HCL | [facility] | + + + + | 2021-10-05 00:00 | CIPROFLOXACIN HCL | [facility] | + + + + | 2021-10-12 00:00 | CIPROFLOXACIN HCL | [facility] | + + + + | 2021-12-03 00:00 | CIPROFLOXACIN HCL | [facility] | + + + + | 2021-12-08 00:00 | CIPROFLOXACIN HCL | [facility] | + + + + | 2022-02-27 00:00 | CIPROFLOXACIN HCL | [facility] | + + + + | 2022-03-04 00:00 | CIPROFLOXACIN HCL | [facility] | + + + + | 2022-02-27 00:00 | Estradiol | [facility] | + + + + | 2022-03-04 00:00 | Estradiol | [facility] | + + + + | 2021-12-08 00:00 | FUROSEMIDE | [facility] | + + + + | 2022-02-27 00:00 | FUROSEMIDE | [facility] | + + + + | 2022-03-04 00:00 | FUROSEMIDE | [facility] | + + + + | 2021-10-12 00:00 | HYDROCHLOROTHIAZIDE | [facility] | + + + + | 2021-12-03 00:00 | HYDROCHLOROTHIAZIDE | [facility] | + + + + | 2021-12-08 00:00 | HYDROCHLOROTHIAZIDE | [facility] | + + + + | 2022-02-27 00:00 | HYDROCHLOROTHIAZIDE | [facility] | + + + + | 2022-03-04 00:00 | HYDROCHLOROTHIAZIDE | [facility] | + + + + | 2021-08-28 00:00 | | [facility] | | | TRIAMTERENE/HYDROCHLOROTHIA | | | | ZID | | + + + + | 2021-09-15 00:00 | | [facility] | | | TRIAMTERENE/HYDROCHLOROTHIA | | | | ZID | | + + + + | 2021-10-12 00:00 | | [facility] | | | TRIAMTERENE/HYDROCHLOROTHIA | | | | ZID | | + + + + | 2021-12-03 00:00 | | [facility] | | | TRIAMTERENE/HYDROCHLOROTHIA | | | | ZID | | + + + + | 2021-12-08 00:00 | | [facility] | | | TRIAMTERENE/HYDROCHLOROTHIA | | | | ZID | | + + + + | 2022-02-27 00:00 | | [facility] | | | TRIAMTERENE/HYDROCHLOROTHIA | | | | ZID | | + + + + | 2022-03-04 00:00 | | [facility] | | | TRIAMTERENE/HYDROCHLOROTHIA | | | | ZID | | + + + + | 2021-10-03 00:00 | LEVOFLOXACIN | [facility] | + + + + | 2021-10-03 00:00 | LEVOFLOXACIN | [facility] | + + + + | 2021-08-28 00:00 | METRONIDAZOLE | [facility] | + + + + | 2021-09-15 00:00 | METRONIDAZOLE | [facility] | + + + + | 2021-12-03 00:00 | SPIRONOLACTONE | [facility] | + + + + | 2021-12-08 00:00 | SPIRONOLACTONE | [facility] | + + + + | 2022-02-27 00:00 | SPIRONOLACTONE | [facility] | + + + + | 2022-03-04 00:00 | SPIRONOLACTONE | [facility] | + + + + | 2021-12-08 00:00 | PANTOPRAZOLE SODIUM | [facility] | + + + + | 2022-02-27 00:00 | PANTOPRAZOLE SODIUM | [facility] | + + + + | 2022-03-04 00:00 | PANTOPRAZOLE SODIUM | [facility] | + + + + | 2021-10-05 00:00 | SUCRALFATE | [facility] | + + + + | 2022-02-27 00:00 | ATORVASTATIN CALCIUM | [facility] | + + + + | 2022-03-04 00:00 | ATORVASTATIN CALCIUM | [facility] | + + + + | 2021-12-08 00:00 | ATORVASTATIN | [facility] | + + + + | 2021-12-08 00:00 | POTASSIUM CHLORIDE | [facility] | + + + + | 2022-02-27 00:00 | POTASSIUM CHLORIDE | [facility] | + + + + | 2022-03-04 00:00 | POTASSIUM CHLORIDE | [facility] | + + + + | 2021-08-28 00:00 | IBUPROFEN | [facility] | + + + + | 2021-09-15 00:00 | IBUPROFEN | [facility] | + + + + | 2021-10-12 00:00 | IBUPROFEN | [facility] | + + + + | 2021-12-03 00:00 | IBUPROFEN | [facility] | + + + + | 2021-12-08 00:00 | IBUPROFEN | [facility] | + + + + | 2022-02-27 00:00 | IBUPROFEN | [facility] | + + + + | 2022-03-04 00:00 | IBUPROFEN | [facility] | + + + + | 2013-06-12 00:00 | AMOXICILLIN/POTASSIUM CLAV | [facility] | | | | | + + + + | 2013-06-12 00:00 | AMOXICILLIN/POTASSIUM CLAV | [facility] | | | | | + + + + | 2022-02-27 00:00 | TRAZODONE HCL | [facility] | + + + + | 2022-03-04 00:00 | TRAZODONE HCL | [facility] | + + + + | 2021-10-12 00:00 | HYDROCODONE | [facility] | | | BIT/ACETAMINOPHEN | | + + + + | 2021-08-28 00:00 | TAMSULOSIN HCL | [facility] | + + + + | 2021-09-15 00:00 | TAMSULOSIN HCL | [facility] | + + + + | 2021-10-12 00:00 | TAMSULOSIN HCL | [facility] | + + + + | 2021-12-03 00:00 | TAMSULOSIN HCL | [facility] | + + + + | 2021-12-08 00:00 | TAMSULOSIN HCL | [facility] | + + + + | 2022-02-27 00:00 | TAMSULOSIN HCL | [facility] | + + + + | 2022-03-04 00:00 | TAMSULOSIN HCL | [facility] | + + + + | 2021-12-08 00:00 | METHENAMINE HIPPURATE | [facility] | + + + + | 2022-02-27 00:00 | METHENAMINE HIPPURATE | [facility] | + + + + | 2022-03-04 00:00 | METHENAMINE HIPPURATE | [facility] | + + + + | 2021-12-03 00:00 | METHENAMINE MANDELATE | [facility] | + + + + | 2021-12-08 00:00 | ACETAMINOPHEN WITH CODEINE | [facility] | | | | | + + + + | 2022-02-27 00:00 | ACETAMINOPHEN WITH CODEINE | [facility] | | | | | + + + + | 2022-03-04 00:00 | ACETAMINOPHEN WITH CODEINE | [facility] | | | | | + + + + | 2021-08-28 00:00 | ACETAMINOPHEN WITH CODEINE | [facility] | | | #3 | | + + + + | 2021-09-15 00:00 | ACETAMINOPHEN WITH CODEINE | [facility] | | | #3 | | + + + + | 2021-10-12 00:00 | ACETAMINOPHEN WITH CODEINE | [facility] | | | #3 | | + + + + | 2021-12-03 00:00 | ACETAMINOPHEN WITH CODEINE | [facility] | | | #3 | | + + + + | 2021-12-08 00:00 | ACETAMINOPHEN WITH CODEINE | [facility] | | | #3 | | + + + + | 2022-02-27 00:00 | ACETAMINOPHEN WITH CODEINE | [facility] | | | #3 | | + + + + | 2022-03-04 00:00 | ACETAMINOPHEN WITH CODEINE | [facility] | | | #3 | | + + + + Problems + + + + | date | description | facility | + + + + | 2015-02-17 00:00 | Encounter for removal of | [facility] | | | sutures | | + + + + | 2015-02-17 00:00 | Encounter for removal of | [facility] | | | sutures | | + + + + | 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[facility] | + + + + | 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[facility] | + + + + | 2021-10-04 00:00 | Hypomagnesemia | [facility] | + + + + | 2021-10-04 00:00 | Hypomagnesemia | [facility] | + + + + | 2021-10-04 00:00 | Hyponatremia | [facility] | + + + + | 2021-10-04 00:00 | Hyponatremia | [facility] | + + + + | 2021-10-04 00:00 | Hypokalemia | [facility] | + + + + | 2021-10-04 00:00 | Hypokalemia | [facility] | + + + + | 2021-10-04 00:00 | Urinary tract infection | [facility] | + + + + | 2021-10-04 00:00 | Urinary tract infection | [facility] | + + + + | 2021-10-04 00:00 | Chest pain | [facility] | + + + + | 2021-10-04 00:00 | Chest pain | [facility] | + + + + | 2021-12-07 00:00 | Intracerebral hemorrhage | [facility] | + + + + | 2021-12-07 11:02 | HYPERLIPIDEMIA, | [facility] | | | UNSPECIFIED | | + + + + | 2021-12-07 11:02 | HYPO-OSMOLALITY AND | [facility] | | | HYPONATREMIA | | + + + + | 2021-12-07 11:02 | 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) | | + + + + | 2021-12-07 11:02 | Essential (primary) | [facility] | | | hypertension | | + + + + | 2021-12-07 11:02 | 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[facility] | | | 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 | | + + + + | 2021-12-07 11:02 | 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, UNSPECIFIED | | + + + + | 2021-12-07 11:02 | ALLERGY STATUS TO | [facility] | | | SULFONAMIDES STATUS | | + + + + | 2021-12-07 11:02 | ALLERGY STATUS TO OTH | [facility] | | | DRUG/MEDS/BIOL SUBST STATUS | | | | | | + + + + | 2022-02-27 00:00 | Skin tear of right upper | [facility] | | | extremity | | + + + + | 2022-02-27 15:18 | Essential (primary) | [facility] | | | hypertension | | + + + + | 2022-02-27 15:18 | 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[facility] | | | 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 | | + + + + | 2022-02-27 15:18 | LACERATION W/O FOREIGN | [facility] | | | BODY OF RIGHT UPPER ARM, IN | | | | | | + + + + | 2022-02-27 15:18 | LACERATION W/O FOREIGN | [facility] | | | BODY OF RIGHT FOREARM, INIT | | | | ENCNTR | | + + + + | 2022-02-27 15:18 | STRIKING AGAINST OTH | [facility] | | | OBJECT W SUBSEQUENT FALL, | | | | INI | | + + + + | 2022-02-27 15:18 | RESIDENTIAL (CURRENT) USE OF | [facility] | | | ASPIRIN | | + + + + | 2022-02-27 15:18 | 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) | [facility] | | | DRUG THERAPY | | + + + + | 2022-02-27 15:18 | ALLERGY STATUS TO OTHER | [facility] | | | ANTIBIOTIC AGENTS STATUS | | + + + + | 2022-02-27 15:18 | ALLERGY STATUS TO | [facility] | | | SULFONAMIDES STATUS | | + + + + | 2022-02-27 15:18 | ALLERGY STATUS TO OTH | [facility] | | | DRUG/MEDS/BIOL SUBST STATUS | | | | | | + + + + | 2022-03-04 00:00 | Local infection of wound | [facility] | + + + + | 2022-03-13 14:47 | OTHER FORMS OF SCOLIOSIS, | [facility] | | | SITE UNSPECIFI | | + + + + | 2022-03-13 14:47 | OTHER FORMS OF SCOLIOSIS, | [facility] | | | LUMBAR REGION | | + + + + | 2022-06-07 15:34 | URINARY TRACT INFECTION, | [facility] | | | SITE NOT SPECIFIED | | + + + + | 2022-09-25 12:56 | OTHER SPECIFIED DISEASES | [facility] | | | OF PANCREAS | | + + + + | 2022-09-25 12:56 | GROSS HEMATURIA | [facility] | + + + + | 2022-09-25 13:00 | GROSS HEMATURIA | [facility] | + + + + Procedures No information. Results/Labs +--------+--------+ +---------+--------+---------+ | test | date | facility | value | unit | notes | +--------+--------+ +---------+--------+---------+ + + | Result panel 1 | + + + + + + + + + | | 2021-09-30 | [facility] | NEGATIVE | (missing) | (missing) | | (unavailable | 08:15 [facility] | | | | + + + + + + + + + | Result panel 2 | + + + + + +-------+ + + | | 2021-10-04 | [facility] | 5.1 | (missing) | (missing) | | (unavailable | 12:27 [facility] | | | | + + + +-------+ + + + + | Result panel 3 | + + + + + +--------+ + + | | 2021-10-04 | [facility] | 74.4 | (missing) | (missing) | | (unavailable | 12:27 [facility] | | | | + + + +--------+ + + + + | Result panel 4 | + + + + + +--------+ + + | | 2021-10-04 | [facility] | 13.8 | (missing) | (missing) | | (unavailable | 12:27 [facility] | | | | + + + +--------+ + + + + | Result panel 5 | + + + + + +--------+ + + | | 2021-10-04 | [facility] | 10.6 | (missing) | (missing) | | (unavailable | 12:27 [facility] | | | | + + + +--------+ + + + + | Result panel 6 | + + + + + +-------+ + + | | 2021-10-04 | [facility] | 0.7 | (missing) | (missing) | | (unavailable | 12:27 [facility] | | | | + + + +-------+ + + + + | Result panel 7 | + + + + + +-------+ + + | | 2021-10-04 | [facility] | 0.5 | (missing) | (missing) | | (unavailable | 12:27 [facility] | | | | + + + +-------+ + + + + | Result panel 8 | + + + + + +--------+ + + | | 2021-10-04 | [facility] | 1.75 | (missing) | (missing) | | (unavailable | 12:27 [facility] | | | | + + + +--------+ + + + + | Result panel 9 | + + + + + +--------+ + + | | 2021-10-04 | [facility] | 4.25 | (missing) | (missing) | | (unavailable | 12:27 [facility] | | | | + + + +--------+ + + + + | Result panel 10 | + + + + + +-------+ + + | | 2021-10-04 | [facility] | 7.0 | (missing) | (missing) | | (unavailable | 12:27 [facility] | | | | + + + +-------+ + + + + | Result panel 11 | + + + + + +--------+ + + | | 2021-10-04 | [facility] | 13.3 | (missing) | (missing) | | (unavailable | 12:27 [facility] | | | | + + + +--------+ + + + + | Result panel 12 | + + + + + +-------+ + + | | 2021-10-04 | [facility] | 3.4 | (missing) | (missing) | | (unavailable | 12:27 [facility] | | | | + + + +-------+ + + + + | Result panel 13 | + + + + + +-------+ + + | | 2021-10-04 | [facility] | 3.6 | (missing) | (missing) | | (unavailable | 12:27 [facility] | | | | + + + +-------+ + + + + | Result panel 14 | + + + + + +--------+ + + | | 2021-10-04 | [facility] | 0.94 | (missing) | (missing) | | (unavailable | 12:27 [facility] | | | | + + + +--------+ + + + + | Result panel 15 | + + + + + +-------+ + + | | 2021-10-04 | [facility] | 1.4 | (missing) | (missing) | | (unavailable | 12:27 [facility] | | | | + + + +-------+ + + + + | Result panel 16 | + + + + + +------+ + + | | 2021-10-04 | [facility] | 15 | (missing) | (missing) | | (unavailable | 12:27 [facility] | | | | + + + +------+ + + + + | Result panel 17 | + + + + + +------+ + + | | 2021-10-04 | [facility] | 13 | (missing) | (missing) | | (unavailable | 12:27 [facility] | | | | + + + +------+ + + + + | Result panel 18 | + + + + + +-------+ + + | | 2021-10-04 | [facility] | 103 | (missing) | (missing) | | (unavailable | 12:27 [facility] | | | | + + + +-------+ + + + + | Result panel 19 | + + + + + + + + + | | 2021-10-04 | [facility] | SEE SCANNED | (missing) | (missing) | | (unavailable | 12:27 [facility] | | | | + + + + + + + + + | Result panel 20 | + + + + + +--------+ + + | | 2021-10-04 | [facility] | 37.2 | (missing) | (missing) | | (unavailable | 12:27 [facility] | | | | + + + +--------+ + + + + | Result panel 21 | + + + + + +--------+ + + | | 2021-10-04 | [facility] | 87.6 | (missing) | (missing) | | (unavailable | 12:27 [facility] | | | | + + + +--------+ + + + + | Result panel 22 | + + + + + +--------+ + + | | 2021-10-04 | [facility] | 31.3 | (missing) | (missing) | | (unavailable | 12:27 [facility] | | | | + + + +--------+ + + + + | Result panel 23 | + + + + + +--------+ + + | | 2021-10-04 | [facility] | 35.8 | (missing) | (missing) | | (unavailable | 12:27 [facility] | | | | + + + +--------+ + + + + | Result panel 24 | + + + + + +--------+ + + | | 2021-10-04 | [facility] | 15.0 | (missing) | (missing) | | (unavailable | 12:27 [facility] | | | | + + + +--------+ + + + + | Result panel 25 | + + + + + +-------+ + + | | 2021-10-04 | [facility] | 287 | (missing) | (missing) | | (unavailable | 12:27 [facility] | | | | + + + +-------+ + + + + | Result panel 26 | + + + + + +-------+ + + | | 2021-10-04 | [facility] | 1.3 | (missing) | (missing) | | (unavailable | 12:41 | [facility] | | | | + + + +-------+ + + + + | Result panel 27 | + + + + + + + + + | | 2021-10-04 | [facility] | NEGATIVE | (missing) | (missing) | | (unavailable | 12:44 | [facility] | | | | + + + + + + + + + | Result panel 28 | + + + + + + + + + | | 2021-10-04 | [facility] | NEGATIVE | (missing) | (missing) | | (unavailable | 12:44 | [facility] | | | | + + + + + + + + + | Result panel 29 | + + + + + + + + + | | 2021-10-04 | [facility] | NEGATIVE | (missing) | (missing) | | (unavailable | 12:44 | [facility] | | | | + + + + + + + + + | Result panel 30 | + + + + + + + + + | | 2021-10-04 | [facility] | NEGATIVE | (missing) | (missing) | | (unavailable | 12:44 | [facility] | | | | + + + + + + + + + | Result panel 31 | + + + + + +---------+ + + | | 2021-10-04 | [facility] | [facility] | (missing) | (missing) | | (unavailable | 13:58 | [facility] | | | | + + + +---------+ + + + + | Result panel 32 | + + + + + + + + + | | 2021-10-04 | [facility] | [facility] | (missing) | (missing) | | (unavailable | 13:58 | [facility] | | | | + + + + + + + + + | Result panel 33 | + + + + + + + + + | | 2021-10-04 | [facility] | NEGATIVE | (missing) | (missing) | | (unavailable | 13:58 | [facility] | | | | + + + + + + + + + | Result panel 34 | + + + + + + + + + | | 2021-10-04 | [facility] | NEGATIVE | (missing) | (missing) | | (unavailable | 13:58 | [facility] | | | | + + + + + + + + + | Result panel 35 | + + + + + +---------+ + + | | 2021-10-04 | [facility] | TRACE | (missing) | (missing) | | (unavailable | 13:58 [facility] | | | | + + + +---------+ + + + + | Result panel 36 | + + + + + +---------+ + + | | 2021-10-04 | [facility] | 1.015 | (missing) | (missing) | | (unavailable | 13:58 [facility] | | | | + + + +---------+ + + + + | Result panel 37 | + + + + + + + + + | | 2021-10-04 | [facility] | NEGATIVE | (missing) | (missing) | | (unavailable | 13:58 [facility] | | | + + + + + + + + + | Result panel 38 | + + + + + +-------+ + + | | 2021-10-04 | [facility] | 7.5 | (missing) | (missing) | | (unavailable | 13:58 [facility] | | | + + + +-------+ + + + + | Result panel 39 | + + + + + + + + + | | 2021-10-04 | [facility] | NEGATIVE | (missing) | (missing) | | (unavailable | 13:58 [facility] | | | + + + + + + + + + | Result panel 40 | + + + + + + + + + | | 2021-10-04 | [facility] | NORMAL | (missing) | (missing) | | (unavailable | 13:58 [facility] | | | + + + + + + + + + | Result panel 41 | + + + + + + + + + | | 2021-10-04 | [facility] | NEGATIVE | (missing) | (missing) | | (unavailable | 13:58 [facility] | | | + + + + + + + + + | Result panel 42 | + + + + + + + + + | | 2021-10-04 | [facility] | NEGATIVE | (missing) | (missing) | | (unavailable | 13:58 [facility] | | | + + + + + + + + + | Result panel 43 | + + + + + + + + + | | 2021-10-04 | [facility] | SEE SCANNED | (missing) | (missing) | | (unavailable | 13:58 | [facility] | | | | + + + + + + + + + | Result panel 44 | + + + + + +-------+---------+ + | | 2021-10-04 | [facility] | 3.5 | mg/dL | (missing) | | (unavailable | 17:45 | [facility] | | | + + + +-------+---------+ + + + | Result panel 45 | + + + + + +--------+ + + | | 2021-10-04 | [facility] | 24.4 | (missing) | (missing) | | (unavailable | 17:45 [facility] | | | + + + +--------+ + + + + | Result panel 46 | + + + + + +-------+---------+ + | | 2021-10-05 | [facility] | 149 | mg/dL | (missing) | | (unavailable | 08:10 | [facility] | | | + + + +-------+---------+ + + + | Result panel 47 | + + + + + +-----+---------+ + | | 2021-10-05 | [facility] | 8 | mg/dL | (missing) | | (unavailable | 08:10 | [facility] | | | + + + +-----+---------+ + + + | Result panel 48 | + + + + + +--------+---------+ + | | 2021-10-05 | [facility] | 0.65 | mg/dL | (missing) | | (unavailable | 08:10 | [facility] | | | + + + +--------+---------+ + + + | Result panel 49 | + + + + + +------+ + + | | 2021-10-05 | [facility] | 86 | (missing) | (missing) | | (unavailable | 08:10 | [facility] | | | + + + +------+ + + + + | Result panel 50 | + + + + + +---------+ + + | | 2021-10-05 | [facility] | 12.30 | (missing) | (missing) | | (unavailable | 08:10 | [facility] | | | + + + +---------+ + + + + | Result panel 51 | + + + + + +-------+ + + | | 2021-10-05 | [facility] | 129 | (missing) | (missing) | | (unavailable | 08:10 | [facility] | | | + + + +-------+ + + + + | Result panel 52 | + + + + + +-------+ + + | | 2021-10-05 | [facility] | 4.0 | (missing) | (missing) | | (unavailable | 08:10 | [facility] | | | + + + +-------+ + + + + | Result panel 53 | + + + + + +------+ + + | | 2021-10-05 | [facility] | 95 | (missing) | (missing) | | (unavailable | 08:10 | [facility] | | | + + + +------+ + + + + | Result panel 54 | + + + + + +------+ + + | | 2021-10-05 | [facility] | 26 | (missing) | (missing) | | (unavailable | 08:10 | [facility] | | | + + + +------+ + + + + | Result panel 55 | + + + + + +--------+ + + | | 2021-10-05 | [facility] | 12.0 | (missing) | (missing) | | (unavailable | 08:10 | [facility] | | | + + + +--------+ + + + + | Result panel 56 | + + + + + +-------+---------+ + | | 2021-10-05 | [facility] | 8.6 | mg/dL | (missing) | | (unavailable | 08:10 | [facility] | | | + + + +-------+---------+ + + + | Result panel 57 | + + + + + +-------+---------+ + | | 2021-10-05 | [facility] | 2.1 | mg/dL | (missing) | | (unavailable | 08:10 | [facility] | | | + + + +-------+---------+ + + + | Result panel 58 | + + + + + + + + + | | 2021-11-28 | [facility] | NEGATIVE | (missing) | (missing) | | (unavailable | 08:33 | [facility] | | | + + + + + + + + + | Result panel 59 | + + + + + + + + + | | 2021-11-28 | [facility] | NEGATIVE | (missing) | (missing) | | (unavailable | 08:33 | [facility] | | | + + + + + + + + + | Result panel 60 | + + + + + +-------+---------+ + | | 2021-11-30 | [facility] | 131 | mg/dL | (missing) | | (unavailable | 06:00 | [facility] | | | + + + +-------+---------+ + + + | Result panel 61 | + + + + + +------+---------+ + | | 2021-11-30 | [facility] | 15 | mg/dL | (missing) | | (unavailable | 06:00 | [facility] | | | + + + +------+---------+ + + + | Result panel 62 | + + + + + +--------+---------+ + | | 2021-11-30 | [facility] | 0.83 | mg/dL | (missing) | | (unavailable | 06:00 | [facility] | | | + + + +--------+---------+ + + + | Result panel 63 | + + + + + +------+ + + | | 2021-11-30 | [facility] | 69 | (missing) | (missing) | | (unavailable | 06:00 | [facility] | | | + + + +------+ + + + + | Result panel 64 | + + + + + +---------+ + + | | 2021-11-30 | [facility] | 18.07 | (missing) | (missing) | | (unavailable | 06:00 | [facility] | | | + + + +---------+ + + + + | Result panel 65 | + + + + + +-------+ + + | | 2021-11-30 | [facility] | 134 | (missing) | (missing) | | (unavailable | 06:00 | [facility] | | | + + + +-------+ + + + + | Result panel 66 | + + + + + +-------+ + + | | 2021-11-30 | [facility] | 3.5 | (missing) | (missing) | | (unavailable | 06:00 | [facility] | | | + + + +-------+ + + + + | Result panel 67 | + + + + + +------+ + + | | 2021-11-30 | [facility] | 97 | (missing) | (missing) | | (unavailable | 06:00 | [facility] | | | + + + +------+ + + + + | Result panel 68 | + + + + + +------+ + + | | 2021-11-30 | [facility] | 27 | (missing) | (missing) | | (unavailable | 06:00 | [facility] | | | + + + +------+ + + + + | Result panel 69 | + + + + + +--------+ + + | | 2021-11-30 | [facility] | 13.5 | (missing) | (missing) | | (unavailable | 06:00 | [facility] | | | + + + +--------+ + + + + | Result panel 70 | + + + + + +-------+---------+ + | | 2021-11-30 | [facility] | 9.6 | mg/dL | (missing) | | (unavailable | 06:00 | [facility] | | | + + + +-------+---------+ + + + | Result panel 71 | + + + + + +-------+---------+ + | | 2021-11-30 | [facility] | 2.5 | mg/dL | (missing) | | (unavailable | 06:00 | [facility] | | | + + + +-------+---------+ + + + | Result panel 72 | + + + + + +-------+ + + | | 2021-11-30 | [facility] | 7.6 | (missing) | (missing) | | (unavailable | 06:00 | [facility] | | | + + + +-------+ + + + + | Result panel 73 | + + + + + +-------+ + + | | 2021-11-30 | [facility] | 3.7 | (missing) | (missing) | | (unavailable | 06:00 | [facility] | | | + + + +-------+ + + + + | Result panel 74 | + + + + + +-------+ + + | | 2021-11-30 | [facility] | 3.9 | (missing) | (missing) | | (unavailable | 06:00 | [facility] | | | + + + +-------+ + + + + | Result panel 75 | + + + + + +--------+ + + | | 2021-11-30 | [facility] | 0.95 | (missing) | (missing) | | (unavailable | 06:00 | [facility] | | | + + + +--------+ + + + + | Result panel 76 | + + + + + +-------+ + + | | 2021-11-30 | [facility] | 0.8 | (missing) | (missing) | | (unavailable | 06:00 | [facility] | | | + + + +-------+ + + + + | Result panel 77 | + + + + + +------+ + + | | 2021-11-30 | [facility] | 19 | (missing) | (missing) | | (unavailable | 06:00 | [facility] | | | + + + +------+ + + + + | Result panel 78 | + + + + + +------+ + + | | 2021-11-30 | [facility] | 20 | (missing) | (missing) | | (unavailable | 06:00 | [facility] | | | + + + +------+ + + + + | Result panel 79 | + + + + + +-------+ + + | | 2021-11-30 | [facility] | 105 | (missing) | (missing) | | (unavailable | 06:00 | [facility] | | | + + + +-------+ + + + + | Result panel 80 | + + + + + +-------+---------+ + | | 2021-11-30 | [facility] | 2.5 | mg/dL | (missing) | | (unavailable | 06:00 | [facility] | | | + + + +-------+---------+ + + + | Result panel 81 | + + + + + +--------+---------+ + | | 2021-12-07 | [facility] | 0.69 | mg/dL | (missing) | | (unavailable | 11:04 | [facility] | | | + + + +--------+---------+ + + + | Result panel 82 | + + + + + +------+ + + | | 2021-12-07 | [facility] | 84 | (missing) | (missing) | | (unavailable | 11:04 | [facility] | | | + + + +------+ + + + + | Result panel 83 | + + + + + +---------+ + + | | 2021-12-07 | [facility] | 15.94 | (missing) | (missing) | | (unavailable | 11:04 [facility] | | | + + + +---------+ + + + + | Result panel 84 | + + + + + +-------+ + + | | 2021-12-07 | [facility] | 132 | (missing) | (missing) | | (unavailable | 11:04 [facility] | | | + + + +-------+ + + + + | Result panel 85 | + + + + + +-------+ + + | | 2021-12-07 | [facility] | 3.9 | (missing) | (missing) | | (unavailable | 11:04 | [facility] | | | + + + +-------+ + + + + | Result panel 86 | + + + + + +------+ + + | | 2021-12-07 | [facility] | 96 | (missing) | (missing) | | (unavailable | 11:04 | [facility] | | | + + + +------+ + + + + | Result panel 87 | + + + + + +------+ + + | | 2021-12-07 | [facility] | 26 | (missing) | (missing) | | (unavailable | 11:04 [facility] | | | + + + +------+ + + + + | Result panel 88 | + + + + + +--------+ + + | | 2021-12-07 | [facility] | 13.9 | (missing) | (missing) | | (unavailable | 11:04 [facility] | | | + + + +--------+ + + + + | Result panel 89 | + + + + + +-------+---------+ + | | 2021-12-07 | [facility] | 9.3 | mg/dL | (missing) | | (unavailable | 11:04 [facility] | | | + + + +-------+---------+ + + + | Result panel 90 | + + + + + +-------+---------+ + | | 2021-12-07 | [facility] | 187 | mg/dL | (missing) | | (unavailable | 11:04 [facility] | | | + + + +-------+---------+ + + + | Result panel 91 | + + + + + +------+ + + | | 2021-12-07 | [facility] | 45 | (missing) | (missing) | | (unavailable | 11:04 [facility] | | | + + + +------+ + + + + | Result panel 92 | + + + + + + + + + | | 2021-12-07 | [facility] | 142.00 | (missing) | (missing) | | (unavailable | 11:04 | [facility] | | | + + + + + + + + + | Result panel 93 | + + + + + +-------+---------+ + | | 2021-12-07 | [facility] | 121 | mg/dL | (missing) | | (unavailable | 11:04 [facility] | | | | + + + +-------+---------+ + + + | Result panel 94 | + + + + + +-------+ + + | | 2021-12-07 | [facility] | 4.2 | (missing) | (missing) | | (unavailable | 11:04 [facility] | | | + + + +-------+ + + + + | Result panel 95 | + + + + + +------+ + + | | 2021-12-07 | [facility] | 20 | (missing) | (missing) | | (unavailable | 11:04 [facility] | | | + + + +------+ + + + + | Result panel 96 | + + + + + +-------+ + + | | 2021-12-07 | [facility] | 104 | (missing) | (missing) | | (unavailable | 11:04 | [facility] | | | + + + +-------+ + + + + | Result panel 97 | + + + + + +-------+ + + | | 2021-12-07 | [facility] | 6.8 | (missing) | (missing) | | (unavailable | 11:04 | [facility] | | | | + + + +-------+ + + + + | Result panel 98 | + + + + + +-------+ + + | | 2021-12-07 | [facility] | 2.5 | (missing) | (missing) | | (unavailable | 11:04 | [facility] | | | | + + + +-------+ + + + + | Result panel 99 | + + + + + +-------+ + + | | 2021-12-07 | [facility] | 4.3 | (missing) | (missing) | | (unavailable | 11:04 [facility] | | | + + + +-------+ + + + + | Result panel 100 | + + + + + +--------+ + + | | 2021-12-07 | [facility] | 0.58 | (missing) | (missing) | | (unavailable | 11:04 [facility] | | | + + + +--------+ + + + + | Result panel 101 | + + + + + +-------+ + + | | 2021-12-07 | [facility] | 0.6 | (missing) | (missing) | | (unavailable | 11:04 [facility] | | | + + + +-------+ + + + + | Result panel 102 | + + + + + +------+ + + | | 2021-12-07 | [facility] | 27 | (missing) | (missing) | | (unavailable | 11:04 [facility] | | | + + + +------+ + + + + | Result panel 103 | + + + + + +------+ + + | | 2021-12-07 | [facility] | 18 | (missing) | (missing) | | (unavailable | 11:04 [facility] | | | + + + +------+ + + + + | Result panel 104 | + + + + + +------+ + + | | 2021-12-07 | [facility] | 75 | (missing) | (missing) | | (unavailable | 11:04 [facility] | | | + + + +------+ + + + + | Result panel 105 | + + + + + +--------+ + + | | 2021-12-07 | [facility] | 11.9 | (missing) | (missing) | | (unavailable | 11:04 [facility] | | | + + + +--------+ + + + + | Result panel 106 | + + + + + +-------+ + + | | 2021-12-07 | [facility] | 5.6 | (missing) | (missing) | | (unavailable | 11:04 [facility] | | | + + + +-------+ + + + + | Result panel 107 | + + + + + +-------+ + + | | 2021-12-07 | [facility] | 4.8 | (missing) | (missing) | | (unavailable | 11:04 [facility] | | | + + + +-------+ + + + + | Result panel 108 | + + + + + +--------+ + + | | 2021-12-07 | [facility] | 3.91 | (missing) | (missing) | | (unavailable | 11:04 [facility] | | | + + + +--------+ + + + + | Result panel 109 | + + + + + +--------+ + + | | 2021-12-07 | [facility] | 11.9 | (missing) | (missing) | | (unavailable | 11:04 [facility] | | | + + + +--------+ + + + + | Result panel 110 | + + + + + +--------+ + + | | 2021-12-07 | [facility] | 35.0 | (missing) | (missing) | | (unavailable | 11:04 [facility] | | | + + + +--------+ + + + + | Result panel 111 | + + + + + +--------+ + + | | 2021-12-07 | [facility] | 89.4 | (missing) | (missing) | | (unavailable | 11:04 [facility] | | | + + + +--------+ + + + + | Result panel 112 | + + + + + +--------+ + + | | 2021-12-07 | [facility] | 30.4 | (missing) | (missing) | | (unavailable | 11:04 [facility] | | | + + + +--------+ + + + + | Result panel 113 | + + + + + +--------+ + + | | 2021-12-07 | [facility] | 34.0 | (missing) | (missing) | | (unavailable | 11:04 [facility] | | | + + + +--------+ + + + + | Result panel 114 | + + + + + +--------+ + + | | 2021-12-07 | [facility] | 12.8 | (missing) | (missing) | | (unavailable | 11:04 [facility] | | | + + + +--------+ + + + + | Result panel 115 | + + + + + +-------+ + + | | 2021-12-07 | [facility] | 374 | (missing) | (missing) | | (unavailable | 11:04 [facility] | | | + + + +-------+ + + + + | Result panel 116 | + + + + + +--------+ + + | | 2021-12-07 | [facility] | 74.4 | (missing) | (missing) | | (unavailable | 11:04 [facility] | | | + + + +--------+ + + + + | Result panel 117 | + + + + + +--------+ + + | | 2021-12-07 | [facility] | 10.5 | (missing) | (missing) | | (unavailable | 11:04 [facility] | | | + + + +--------+ + + + + | Result panel 118 | + + + + + +--------+ + + | | 2021-12-07 | [facility] | 12.7 | (missing) | (missing) | | (unavailable | 11:04 [facility] | | | + + + +--------+ + + + + | Result panel 119 | + + + + + +-------+ + + | | 2021-12-07 | [facility] | 1.3 | (missing) | (missing) | | (unavailable | 11:04 [facility] | | | + + + +-------+ + + + + | Result panel 120 | + + + + + +-------+ + + | | 2021-12-07 | [facility] | 1.1 | (missing) | (missing) | | (unavailable | 11:04 [facility] | | | + + + +-------+ + + + + | Result panel 121 | + + + + + +--------+ + + | | 2021-12-07 | [facility] | 18.2 | (missing) | (missing) | | (unavailable | 11:04 [facility] | | | + + + +--------+ + + + + | Result panel 122 | + + + + + +--------+ + + | | 2021-12-07 | [facility] | 1.55 | (missing) | (missing) | | (unavailable | 11:04 [facility] | | | + + + +--------+ + + + + | Result panel 123 | + + + + + +--------+ + + | | 2021-12-07 | [facility] | 35.8 | (missing) | (missing) | | (unavailable | 11:04 [facility] | | | + + + +--------+ + + + + | Result panel 124 | + + + + + +--------+ + + | | 2021-12-07 | [facility] | 2.51 | (missing) | (missing) | | (unavailable | 11:04 [facility] | | | | + + + +--------+ + + + + | Result panel 125 | + + + + + +-------+---------+ + | | 2021-12-07 | [facility] | 132 | mg/dL | (missing) | | (unavailable | 11:04 [facility] | | | | + + + +-------+---------+ + + + | Result panel 126 | + + + + + +------+---------+ + | | 2021-12-07 | [facility] | 11 | mg/dL | (missing) | | (unavailable | 11:04 [facility] | | | | + + + +------+---------+ + + + | Result panel 127 | + + + + + + + + + | | 2021-12-07 | [facility] | NEGATIVE | (missing) | (missing) | | (unavailable | 12:00 | [facility] | | | | + + + + + + + + + | Result panel 128 | + + + + + + + + + | | 2021-12-07 | [facility] | NEGATIVE | (missing) | (missing) | | (unavailable | 12:00 | [facility] | | | | + + + + + + + + + | Result panel 129 | + + + + + + + + + | | 2021-12-07 | [facility] | NEGATIVE | (missing) | (missing) | | (unavailable | 12:00 | [facility] | | | | + + + + + + + + + | Result panel 130 | + + + + + + + + + | | 2021-12-07 | [facility] | NEGATIVE | (missing) | (missing) | | (unavailable | 12:00 [facility] | | | | + + + + + + + Social History No information. Vital Signs + + + +---------+ | date | measurement | value | units | + + + +---------+ | 2021-09-29 00:00 | BMI | 23.9 | kg/m2 | + + + +---------+ | 2021-09-29 00:00 | height_metric | 167.64 | cm | + + + +---------+ | 2021-09-29 00:00 | height_standard | 66 | in | + + + +---------+ | 2021-09-29 00:00 | weight_metric | 67.27 | kg | + + + +---------+ | 2021-09-29 00:00 | weight_standard | 148.3 | lb | + + + +---------+ | 2021-10-03 00:00 | BP_diastolic | 65 | mmHg | + + + +---------+ | 2021-10-03 00:00 | BP_systolic | 172 | mmHg | + + + +---------+ | 2021-10-03 00:00 | heart_rate | 53 | /min | + + + +---------+ | 2021-10-03 00:00 | o2_saturation | 99 | % | + + + +---------+ | 2021-10-03 00:00 | respiration_rate | 18 | /min | + + + +---------+ | 2021-10-03 00:00 | temperature_metric | 36.67 | C | | | | | | + + + +---------+ | 2021-10-03 00:00 | | 98 | F | | | temperature_standar | | | | | d | | | + + + +---------+ | 2021-10-04 00:00 | BMI | 22.7 | kg/m2 | + + + +---------+ | 2021-10-04 00:00 | height_metric | 167.64 | cm | + + + +---------+ | 2021-10-04 00:00 | height_standard | 66 | in | + + + +---------+ | 2021-10-04 00:00 | weight_metric | 63.7 | kg | + + + +---------+ | 2021-10-04 00:00 | weight_standard | 140.43 | lb | + + + +---------+ | 2021-10-05 00:00 | BP_diastolic | 70 | mmHg | + + + +---------+ | 2021-10-05 00:00 | BP_systolic | 132 | mmHg | + + + +---------+ | 2021-10-05 00:00 | heart_rate | 74 | /min | + + + +---------+ | 2021-10-05 00:00 | o2_saturation | 99 | % | + + + +---------+ | 2021-10-05 00:00 | respiration_rate | 16 | /min | + + + +---------+ | 2021-10-05 00:00 | temperature_metric | 36.33 | C | | | | | | + + + +---------+ | 2021-10-05 00:00 | | 97.4 | F | | | temperature_standar | | | | | d | | | + + + +---------+ | 2021-11-17 00:00 | BMI | 22.6 | kg/m2 | + + + +---------+ | 2021-11-17 00:00 | height_metric | 167.64 | cm | + + + +---------+ | 2021-11-17 00:00 | height_standard | 66 | in | + + + +---------+ | 2021-11-17 00:00 | weight_metric | 63.6 | kg | + + + +---------+ | 2021-11-17 00:00 | weight_standard | 140.21 | lb | + + + +---------+ | 2021-12-03 00:00 | BP_diastolic | 59 | mmHg | + + + +---------+ | 2021-12-03 00:00 | BP_systolic | 126 | mmHg | + + + +---------+ | 2021-12-03 00:00 | heart_rate | 73 | /min | + + + +---------+ | 2021-12-03 00:00 | o2_saturation | 100 | % | + + + +---------+ | 2021-12-03 00:00 | respiration_rate | 17 | /min | + + + +---------+ | 2021-12-03 00:00 | temperature_metric | 36.28 | C | | | | | | + + + +---------+ | 2021-12-03 00:00 | | 97.3 | F | | | temperature_standar | | | | | d | | | + + + +---------+ | 2021-12-07 00:00 | BMI | 24.6 | kg/m2 | + + + +---------+ | 2021-12-07 00:00 | height_metric | 167.64 | cm | + + + +---------+ | 2021-12-07 00:00 | height_standard | 66 | in | + + + +---------+ | 2021-12-07 00:00 | weight_metric | 69 | kg | + + + +---------+ | 2021-12-07 00:00 | weight_standard | 152.12 | lb | + + + +---------+ | 2021-12-08 00:00 | BP_diastolic | 50 | mmHg | + + + +---------+ | 2021-12-08 00:00 | BP_systolic | 136 | mmHg | + + + +---------+ | 2021-12-08 00:00 | heart_rate | 72 | /min | + + + +---------+ | 2021-12-08 00:00 | o2_saturation | 100 | % | + + + +---------+ | 2021-12-08 00:00 | respiration_rate | 15 | /min | + + + +---------+ | 2021-12-08 00:00 | temperature_metric | 36.94 | C | | | | | | + + + +---------+ | 2021-12-08 00:00 | | 98.5 | F | | | temperature_standar | | | | | d | | | + + + +---------+ | 2022-02-27 00:00 | BMI | 22.6 | kg/m2 | + + + +---------+ | 2022-02-27 00:00 | BP_diastolic | 80 | mmHg | + + + +---------+ | 2022-02-27 00:00 | BP_systolic | 155 | mmHg | + + + +---------+ | 2022-02-27 00:00 | heart_rate | 89 | /min | + + + +---------+ | 2022-02-27 00:00 | height_metric | 167.64 | cm | + + + +---------+ | 2022-02-27 00:00 | height_standard | 66 | in | + + + +---------+ | 2022-02-27 00:00 | o2_saturation | 99 | % | + + + +---------+ | 2022-02-27 00:00 | respiration_rate | 16 | /min | + + + +---------+ | 2022-02-27 00:00 | temperature_metric | 36.61 | C | | | | | | + + + +---------+ | 2022-02-27 00:00 | | 97.9 | F | | | temperature_standar | | | | | d | | | + + + +---------+ | 2022-02-27 00:00 | weight_metric | 63.5 | kg | + + + +---------+ | 2022-02-27 00:00 | weight_standard | 139.99 | lb | + + + +---------+ | 2022-02-27 00:00 | weight_standard | 140 | lb | + + + +---------+ | 2022-03-04 00:00 | BMI | 22.7 | kg/m2 | + + + +---------+ | 2022-03-04 00:00 | BP_diastolic | 67 | mmHg | + + + +---------+ | 2022-03-04 00:00 | BP_systolic | 129 | mmHg | + + + +---------+ | 2022-03-04 00:00 | heart_rate | 76 | /min | + + + +---------+ | 2022-03-04 00:00 | height_metric | 167.64 | cm | + + + +---------+ | 2022-03-04 00:00 | height_standard | 66 | in | + + + +---------+ | 2022-03-04 00:00 | o2_saturation | 98 | % | + + + +---------+ | 2022-03-04 00:00 | respiration_rate | 19 | /min | + + + +---------+ | 2022-03-04 00:00 | temperature_metric | 36.83 | C | | | | | | + + + +---------+ | 2022-03-04 00:00 | | 98.3 | F | | | temperature_standar | | | | | d | | | + + + +---------+ | 2022-03-04 00:00 | weight_metric | 63.81 | kg | + + + +---------+ | 2022-03-04 00:00 | weight_metric | 63.82 | kg | + + + +---------+ | 2022-03-04 00:00 | weight_standard | 140.68 | lb | + + + +---------+ | 2022-03-04 00:00 | weight_standard | 140.69 | lb | + + + +---------+"
--- OUTSIDE RECORDS SUMMARY | ~2022-10-16 | XMS | Continuity of Care Document ---
Demographics + + + | Address | [address] | | | [place] [address] | + + + | Preferred Language | Unknown | + + + | Marital Status | | + + + | Church Affiliation | Unknown | + + + | Race | White | + + + | Ethnic Group | Not or | + + + Author + + + | Author | [facility] | + + + | Organization | [facility] | + + + | Address | [address] | | | [place] [address] | + + + | Phone | | + + + Care Team Providers + + + + | Care Production Coordinator Name | Role | Phone | + [...] + | 2015-02-17 00:00 | DTaP | [facility] | + + + + | 2015-02-17 00:00 | DTaP | [facility] | + + + + Medications + + + + | date | description | facility | + + + + | 2021-10-12 00:00 | OXYCODONE HCL | [facility] | + + + + | 2021-12-03 00:00 | OXYCODONE HCL | [facility] | + + + + | 2021-12-03 00:00 | OXYCODONE HCL | [facility] | + + + + | 2021-12-08 00:00 | OXYCODONE HCL | [facility] | + + + + | 2022-02-27 00:00 | OXYCODONE HCL | [facility] | + + + + | 2022-03-04 00:00 | OXYCODONE HCL | [facility] | + + + + | 2021-08-28 00:00 | NAPROXEN SODIUM | [facility] | + + + + | 2021-09-15 00:00 | NAPROXEN SODIUM | [facility] | + + + + | 2021-10-12 00:00 | NAPROXEN SODIUM | [facility] | + + + + | 2021-12-03 00:00 | NAPROXEN SODIUM | [facility] | + + + + | 2021-12-08 00:00 | NAPROXEN SODIUM | [facility] | + + + + | 2022-02-27 00:00 | NAPROXEN SODIUM | [facility] | + + + + | 2022-03-04 00:00 | NAPROXEN SODIUM | [facility] | + + + + | 2021-12-03 00:00 | RIVAROXABAN | [facility] | + + + + | 2021-12-03 00:00 | RIVAROXABAN | [facility] | + + + + | 2021-10-12 00:00 | MIRABEGRON | [facility] | + + + + | 2021-12-08 00:00 | MIRABEGRON | [facility] | + + + + | 2022-02-27 00:00 | MIRABEGRON | [facility] | + + + + | 2022-03-04 00:00 | MIRABEGRON | [facility] | + + + + | 2021-10-12 00:00 | POTASSIUM CHLORIDE | [facility] | + + + + | 2021-12-03 00:00 | POTASSIUM CHLORIDE | [facility] | + + + + | 2021-12-08 00:00 | POTASSIUM CHLORIDE | [facility] | + + + + | 2022-02-27 00:00 | POTASSIUM CHLORIDE | [facility] | + + + + | 2022-03-04 00:00 | POTASSIUM CHLORIDE | [facility] | + + + + | 2021-10-12 00:00 | NITROFURANTOIN | [facility] | | | MACROCRYSTAL | | + + + + | 2021-12-03 00:00 | NITROFURANTOIN | [facility] | | | MACROCRYSTAL | | + + + + | 2021-12-08 00:00 | NITROFURANTOIN | [facility] | | | MACROCRYSTAL | | + + + + | 2022-02-27 00:00 | NITROFURANTOIN | [facility] | | | MACROCRYSTAL | | + + + + | 2022-03-04 00:00 | NITROFURANTOIN | [facility] | | | MACROCRYSTAL | | + + + + | 2022-03-04 00:00 | CEPHALEXIN | [facility] | + + + + | 2021-08-28 00:00 | NAPROXEN | [facility] | + + + + | 2021-09-15 00:00 | NAPROXEN | [facility] | + + + + | 2021-10-12 00:00 | NAPROXEN | [facility] | + + + + | 2021-12-03 00:00 | NAPROXEN | [facility] | + + + + | 2021-12-08 00:00 | NAPROXEN | [facility] | + + + + | 2022-02-27 00:00 | NAPROXEN | [facility] | + + + + | 2022-03-04 00:00 | NAPROXEN | [facility] | + + + + | 2021-08-28 00:00 | ASPIRIN | [facility] | + + + + | 2021-09-15 00:00 | ASPIRIN | [facility] | + + + + | 2021-10-12 00:00 | ASPIRIN | [facility] | + + + + | 2021-12-03 00:00 | ASPIRIN | [facility] | + + + + | 2021-12-08 00:00 | ASPIRIN | [facility] | + + + + | 2022-02-27 00:00 | ASPIRIN | [facility] | + + + + | 2022-03-04 00:00 | ASPIRIN | [facility] | + + + + | 2021-10-05 00:00 | MELATONIN | [facility] | + + + + | 2021-12-03 00:00 | FUROSEMIDE | [facility] | + + + + | 2021-12-08 00:00 | FUROSEMIDE | [facility] | + + + + | 2022-02-27 00:00 | FUROSEMIDE | [facility] | + + + + | 2022-03-04 00:00 | FUROSEMIDE | [facility] | + + + + | 2021-08-28 00:00 | CALCIUM CARBONATE | [facility] | + + + + | 2021-09-15 00:00 | CALCIUM CARBONATE | [facility] | + + + + | 2021-12-03 00:00 | MAGNESIUM | [facility] | + + + + | 2021-12-08 00:00 | MAGNESIUM | [facility] | + + + + | 2022-02-27 00:00 | MAGNESIUM | [facility] | + + + + | 2022-03-04 00:00 | MAGNESIUM | [facility] | + + + + | 2021-08-28 00:00 | PANTOPRAZOLE SODIUM | [facility] | + + + + | 2021-09-15 00:00 | PANTOPRAZOLE SODIUM | [facility] | + + + + | 2021-10-05 00:00 | PANTOPRAZOLE SODIUM | [facility] | + + + + | 2021-10-12 00:00 | PANTOPRAZOLE SODIUM | [facility] | + + + + | 2021-12-03 00:00 | PANTOPRAZOLE SODIUM | [facility] | + + + + | 2021-12-08 00:00 | PANTOPRAZOLE SODIUM | [facility] | + + + + | 2022-02-27 00:00 | PANTOPRAZOLE SODIUM | [facility] | + + + + | 2022-03-04 00:00 | PANTOPRAZOLE SODIUM | [facility] | + + + + | 2021-12-08 00:00 | ASPIRIN | [facility] | + + + + | 2021-10-12 00:00 | CEPHALEXIN MONOHYDRATE | [facility] | + + + + | 2021-12-03 00:00 | CEPHALEXIN MONOHYDRATE | [facility] | + + + + | 2021-12-08 00:00 | CEPHALEXIN MONOHYDRATE | [facility] | + + + + | 2022-02-27 00:00 | CEPHALEXIN MONOHYDRATE | [facility] | + + + + | 2022-03-04 00:00 | CEPHALEXIN MONOHYDRATE | [facility] | + + + + | 2021-08-28 00:00 | CIPROFLOXACIN HCL | [facility] | + + + + | 2021-09-15 00:00 | CIPROFLOXACIN HCL | [facility] | + + + + | 2021-10-05 00:00 | CIPROFLOXACIN HCL | [facility] | + + + + | 2021-10-12 00:00 | CIPROFLOXACIN HCL | [facility] | + + + + | 2021-12-03 00:00 | CIPROFLOXACIN HCL | [facility] | + + + + | 2021-12-08 00:00 | CIPROFLOXACIN HCL | [facility] | + + + + | 2022-02-27 00:00 | CIPROFLOXACIN HCL | [facility] | + + + + | 2022-03-04 00:00 | CIPROFLOXACIN HCL | [facility] | + + + + | 2022-02-27 00:00 | Estradiol | [facility] | + + + + | 2022-03-04 00:00 | Estradiol | [facility] | + + + + | 2021-12-08 00:00 | FUROSEMIDE | [facility] | + + + + | 2022-02-27 00:00 | FUROSEMIDE | [facility] | + + + + | 2022-03-04 00:00 | FUROSEMIDE | [facility] | + + + + | 2021-10-12 00:00 | HYDROCHLOROTHIAZIDE | [facility] | + + + + | 2021-12-03 00:00 | HYDROCHLOROTHIAZIDE | [facility] | + + + + | 2021-12-08 00:00 | HYDROCHLOROTHIAZIDE | [facility] | + + + + | 2022-02-27 00:00 | HYDROCHLOROTHIAZIDE | [facility] | + + + + | 2022-03-04 00:00 | HYDROCHLOROTHIAZIDE | [facility] | + + + + | 2021-08-28 00:00 | | [facility] | | | TRIAMTERENE/HYDROCHLOROTHIA | | | | ZID | | + + + + | 2021-09-15 00:00 | | [facility] | | | TRIAMTERENE/HYDROCHLOROTHIA | | | | ZID | | + + + + | 2021-10-12 00:00 | | [facility] | | | TRIAMTERENE/HYDROCHLOROTHIA | | | | ZID | | + + + + | 2021-12-03 00:00 | | [facility] | | | TRIAMTERENE/HYDROCHLOROTHIA | | | | ZID | | + + + + | 2021-12-08 00:00 | | [facility] | | | TRIAMTERENE/HYDROCHLOROTHIA | | | | ZID | | + + + + | 2022-02-27 00:00 | | [facility] | | | TRIAMTERENE/HYDROCHLOROTHIA | | | | ZID | | + + + + | 2022-03-04 00:00 | | [facility] | | | TRIAMTERENE/HYDROCHLOROTHIA | | | | ZID | | + + + + | 2021-10-03 00:00 | LEVOFLOXACIN | [facility] | + + + + | 2021-10-03 00:00 | LEVOFLOXACIN | [facility] | + + + + | 2021-08-28 00:00 | METRONIDAZOLE | [facility] | + + + + | 2021-09-15 00:00 | METRONIDAZOLE | [facility] | + + + + | 2021-12-03 00:00 | SPIRONOLACTONE | [facility] | + + + + | 2021-12-08 00:00 | SPIRONOLACTONE | [facility] | + + + + | 2022-02-27 00:00 | SPIRONOLACTONE | [facility] | + + + + | 2022-03-04 00:00 | SPIRONOLACTONE | [facility] | + + + + | 2021-12-08 00:00 | PANTOPRAZOLE SODIUM | [facility] | + + + + | 2022-02-27 00:00 | PANTOPRAZOLE SODIUM | [facility] | + + + + | 2022-03-04 00:00 | PANTOPRAZOLE SODIUM | [facility] | + + + + | 2021-10-05 00:00 | SUCRALFATE | [facility] | + + + + | 2022-02-27 00:00 | ATORVASTATIN CALCIUM | [facility] | + + + + | 2022-03-04 00:00 | ATORVASTATIN CALCIUM | [facility] | + + + + | 2021-12-08 00:00 | ATORVASTATIN | [facility] | + + + + | 2021-12-08 00:00 | POTASSIUM CHLORIDE | [facility] | + + + + | 2022-02-27 00:00 | POTASSIUM CHLORIDE | [facility] | + + + + | 2022-03-04 00:00 | POTASSIUM CHLORIDE | [facility] | + + + + | 2021-08-28 00:00 | IBUPROFEN | [facility] | + + + + | 2021-09-15 00:00 | IBUPROFEN | [facility] | + + + + | 2021-10-12 00:00 | IBUPROFEN | [facility] | + + + + | 2021-12-03 00:00 | IBUPROFEN | [facility] | + + + + | 2021-12-08 00:00 | IBUPROFEN | [facility] | + + + + | 2022-02-27 00:00 | IBUPROFEN | [facility] | + + + + | 2022-03-04 00:00 | IBUPROFEN | [facility] | + + + + | 2013-06-12 00:00 | AMOXICILLIN/POTASSIUM CLAV | [facility] | | | | | + + + + | 2013-06-12 00:00 | AMOXICILLIN/POTASSIUM CLAV | [facility] | | | | | + + + + | 2022-02-27 00:00 | TRAZODONE HCL | [facility] | + + + + | 2022-03-04 00:00 | TRAZODONE HCL | [facility] | + + + + | 2021-10-12 00:00 | HYDROCODONE | [facility] | | | BIT/ACETAMINOPHEN | | + + + + | 2021-08-28 00:00 | TAMSULOSIN HCL | [facility] | + + + + | 2021-09-15 00:00 | TAMSULOSIN HCL | [facility] | + + + + | 2021-10-12 00:00 | TAMSULOSIN HCL | [facility] | + + + + | 2021-12-03 00:00 | TAMSULOSIN HCL | [facility] | + + + + | 2021-12-08 00:00 | TAMSULOSIN HCL | [facility] | + + + + | 2022-02-27 00:00 | TAMSULOSIN HCL | [facility] | + + + + | 2022-03-04 00:00 | TAMSULOSIN HCL | [facility] | + + + + | 2021-12-08 00:00 | METHENAMINE HIPPURATE | [facility] | + + + + | 2022-02-27 00:00 | METHENAMINE HIPPURATE | [facility] | + + + + | 2022-03-04 00:00 | METHENAMINE HIPPURATE | [facility] | + + + + | 2021-12-03 00:00 | METHENAMINE MANDELATE | [facility] | + + + + | 2021-12-08 00:00 | ACETAMINOPHEN WITH CODEINE | [facility] | | | | | + + + + | 2022-02-27 00:00 | ACETAMINOPHEN WITH CODEINE | [facility] | | | | | + + + + | 2022-03-04 00:00 | ACETAMINOPHEN WITH CODEINE | [facility] | | | | | + + + + | 2021-08-28 00:00 | ACETAMINOPHEN WITH CODEINE | [facility] | | | #3 | | + + + + | 2021-09-15 00:00 | ACETAMINOPHEN WITH CODEINE | [facility] | | | #3 | | + + + + | 2021-10-12 00:00 | ACETAMINOPHEN WITH CODEINE | [facility] | | | #3 | | + + + + | 2021-12-03 00:00 | ACETAMINOPHEN WITH CODEINE | [facility] | | | #3 | | + + + + | 2021-12-08 00:00 | ACETAMINOPHEN WITH CODEINE | [facility] | | | #3 | | + + + + | 2022-02-27 00:00 | ACETAMINOPHEN WITH CODEINE | [facility] | | | #3 | | + + + + | 2022-03-04 00:00 | ACETAMINOPHEN WITH CODEINE | [facility] | | | #3 | | + + + + Problems + + + + | date | description | facility | + + + + | 2015-02-17 00:00 | Encounter for removal of | [facility] | | | sutures | | + + + + | 2015-02-17 00:00 | Encounter for removal of | [facility] | | | sutures | | + + + + | 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[facility] | + + + + | 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[facility] | + + + + | 2021-10-04 00:00 | Hypomagnesemia | [facility] | + + + + | 2021-10-04 00:00 | Hypomagnesemia | [facility] | + + + + | 2021-10-04 00:00 | Hyponatremia | [facility] | + + + + | 2021-10-04 00:00 | Hyponatremia | [facility] | + + + + | 2021-10-04 00:00 | Hypokalemia | [facility] | + + + + | 2021-10-04 00:00 | Hypokalemia | [facility] | + + + + | 2021-10-04 00:00 | Urinary tract infection | [facility] | + + + + | 2021-10-04 00:00 | Urinary tract infection | [facility] | + + + + | 2021-10-04 00:00 | Chest pain | [facility] | + + + + | 2021-10-04 00:00 | Chest pain | [facility] | + + + + | 2021-12-07 00:00 | Intracerebral hemorrhage | [facility] | + + + + | 2022-02-27 00:00 | Skin tear of right upper | [facility] | | | extremity | | + + + + | 2022-03-04 00:00 | Local infection of wound | [facility] | + + + + | 2022-09-25 [...] (missing) | | (unavailable | 06:00 | [facility] | | | | | ) | [...]
--- OUTSIDE RECORDS SUMMARY | ~2022-10-16 | XMS | Continuity of Care Document ---
Demographics + + + | Address | [address] | | | [place] [address] | + + + | Preferred Language | Unknown | + + + | Marital Status | | + + + | Yazidism Affiliation | Unknown | + + + | Race | White | + + + | Ethnic Group | Not or | + + + Author + + + | Author | [facility] | + + + | Organization | [facility] | + + + | Address | [address] | | | [place] [address] | + + + | Phone | | + + + Care Team Providers + + + + | Care Mold Yarn Supervisor Name | Role | Phone | + [...] + | 2015-02-17 00:00 | DTaP | [facility] | + + + + | 2015-02-17 00:00 | DTaP | [facility] | + + + + Medications + + + + | date | description | facility | + + + + | 2021-10-12 00:00 | OXYCODONE HCL | [facility] | + + + + | 2021-12-03 00:00 | OXYCODONE HCL | [facility] | + + + + | 2021-12-03 00:00 | OXYCODONE HCL | [facility] | + + + + | 2021-12-08 00:00 | OXYCODONE HCL | [facility] | + + + + | 2022-02-27 00:00 | OXYCODONE HCL | [facility] | + + + + | 2022-03-04 00:00 | OXYCODONE HCL | [facility] | + + + + | 2021-08-28 00:00 | NAPROXEN SODIUM | [facility] | + + + + | 2021-09-15 00:00 | NAPROXEN SODIUM | [facility] | + + + + | 2021-10-12 00:00 | NAPROXEN SODIUM | [facility] | + + + + | 2021-12-03 00:00 | NAPROXEN SODIUM | [facility] | + + + + | 2021-12-08 00:00 | NAPROXEN SODIUM | [facility] | + + + + | 2022-02-27 00:00 | NAPROXEN SODIUM | [facility] | + + + + | 2022-03-04 00:00 | NAPROXEN SODIUM | [facility] | + + + + | 2021-12-03 00:00 | RIVAROXABAN | [facility] | + + + + | 2021-12-03 00:00 | RIVAROXABAN | [facility] | + + + + | 2021-10-12 00:00 | MIRABEGRON | [facility] | + + + + | 2021-12-08 00:00 | MIRABEGRON | [facility] | + + + + | 2022-02-27 00:00 | MIRABEGRON | [facility] | + + + + | 2022-03-04 00:00 | MIRABEGRON | [facility] | + + + + | 2021-10-12 00:00 | POTASSIUM CHLORIDE | [facility] | + + + + | 2021-12-03 00:00 | POTASSIUM CHLORIDE | [facility] | + + + + | 2021-12-08 00:00 | POTASSIUM CHLORIDE | [facility] | + + + + | 2022-02-27 00:00 | POTASSIUM CHLORIDE | [facility] | + + + + | 2022-03-04 00:00 | POTASSIUM CHLORIDE | [facility] | + + + + | 2021-10-12 00:00 | NITROFURANTOIN | [facility] | | | MACROCRYSTAL | | + + + + | 2021-12-03 00:00 | NITROFURANTOIN | [facility] | | | MACROCRYSTAL | | + + + + | 2021-12-08 00:00 | NITROFURANTOIN | [facility] | | | MACROCRYSTAL | | + + + + | 2022-02-27 00:00 | NITROFURANTOIN | [facility] | | | MACROCRYSTAL | | + + + + | 2022-03-04 00:00 | NITROFURANTOIN | [facility] | | | MACROCRYSTAL | | + + + + | 2022-03-04 00:00 | CEPHALEXIN | [facility] | + + + + | 2021-08-28 00:00 | NAPROXEN | [facility] | + + + + | 2021-09-15 00:00 | NAPROXEN | [facility] | + + + + | 2021-10-12 00:00 | NAPROXEN | [facility] | + + + + | 2021-12-03 00:00 | NAPROXEN | [facility] | + + + + | 2021-12-08 00:00 | NAPROXEN | [facility] | + + + + | 2022-02-27 00:00 | NAPROXEN | [facility] | + + + + | 2022-03-04 00:00 | NAPROXEN | [facility] | + + + + | 2021-08-28 00:00 | ASPIRIN | [facility] | + + + + | 2021-09-15 00:00 | ASPIRIN | [facility] | + + + + | 2021-10-12 00:00 | ASPIRIN | [facility] | + + + + | 2021-12-03 00:00 | ASPIRIN | [facility] | + + + + | 2021-12-08 00:00 | ASPIRIN | [facility] | + + + + | 2022-02-27 00:00 | ASPIRIN | [facility] | + + + + | 2022-03-04 00:00 | ASPIRIN | [facility] | + + + + | 2021-10-05 00:00 | MELATONIN | [facility] | + + + + | 2021-12-03 00:00 | FUROSEMIDE | [facility] | + + + + | 2021-12-08 00:00 | FUROSEMIDE | [facility] | + + + + | 2022-02-27 00:00 | FUROSEMIDE | [facility] | + + + + | 2022-03-04 00:00 | FUROSEMIDE | [facility] | + + + + | 2021-08-28 00:00 | CALCIUM CARBONATE | [facility] | + + + + | 2021-09-15 00:00 | CALCIUM CARBONATE | [facility] | + + + + | 2021-12-03 00:00 | MAGNESIUM | [facility] | + + + + | 2021-12-08 00:00 | MAGNESIUM | [facility] | + + + + | 2022-02-27 00:00 | MAGNESIUM | [facility] | + + + + | 2022-03-04 00:00 | MAGNESIUM | [facility] | + + + + | 2021-08-28 00:00 | PANTOPRAZOLE SODIUM | [facility] | + + + + | 2021-09-15 00:00 | PANTOPRAZOLE SODIUM | [facility] | + + + + | 2021-10-05 00:00 | PANTOPRAZOLE SODIUM | [facility] | + + + + | 2021-10-12 00:00 | PANTOPRAZOLE SODIUM | [facility] | + + + + | 2021-12-03 00:00 | PANTOPRAZOLE SODIUM | [facility] | + + + + | 2021-12-08 00:00 | PANTOPRAZOLE SODIUM | [facility] | + + + + | 2022-02-27 00:00 | PANTOPRAZOLE SODIUM | [facility] | + + + + | 2022-03-04 00:00 | PANTOPRAZOLE SODIUM | [facility] | + + + + | 2021-12-08 00:00 | ASPIRIN | [facility] | + + + + | 2021-10-12 00:00 | CEPHALEXIN MONOHYDRATE | [facility] | + + + + | 2021-12-03 00:00 | CEPHALEXIN MONOHYDRATE | [facility] | + + + + | 2021-12-08 00:00 | CEPHALEXIN MONOHYDRATE | [facility] | + + + + | 2022-02-27 00:00 | CEPHALEXIN MONOHYDRATE | [facility] | + + + + | 2022-03-04 00:00 | CEPHALEXIN MONOHYDRATE | [facility] | + + + + | 2021-08-28 00:00 | CIPROFLOXACIN HCL | [facility] | + + + + | 2021-09-15 00:00 | CIPROFLOXACIN HCL | [facility] | + + + + | 2021-10-05 00:00 | CIPROFLOXACIN HCL | [facility] | + + + + | 2021-10-12 00:00 | CIPROFLOXACIN HCL | [facility] | + + + + | 2021-12-03 00:00 | CIPROFLOXACIN HCL | [facility] | + + + + | 2021-12-08 00:00 | CIPROFLOXACIN HCL | [facility] | + + + + | 2022-02-27 00:00 | CIPROFLOXACIN HCL | [facility] | + + + + | 2022-03-04 00:00 | CIPROFLOXACIN HCL | [facility] | + + + + | 2022-02-27 00:00 | Estradiol | [facility] | + + + + | 2022-03-04 00:00 | Estradiol | [facility] | + + + + | 2021-12-08 00:00 | FUROSEMIDE | [facility] | + + + + | 2022-02-27 00:00 | FUROSEMIDE | [facility] | + + + + | 2022-03-04 00:00 | FUROSEMIDE | [facility] | + + + + | 2021-10-12 00:00 | HYDROCHLOROTHIAZIDE | [facility] | + + + + | 2021-12-03 00:00 | HYDROCHLOROTHIAZIDE | [facility] | + + + + | 2021-12-08 00:00 | HYDROCHLOROTHIAZIDE | [facility] | + + + + | 2022-02-27 00:00 | HYDROCHLOROTHIAZIDE | [facility] | + + + + | 2022-03-04 00:00 | HYDROCHLOROTHIAZIDE | [facility] | + + + + | 2021-08-28 00:00 | | [facility] | | | TRIAMTERENE/HYDROCHLOROTHIA | | | | ZID | | + + + + | 2021-09-15 00:00 | | [facility] | | | TRIAMTERENE/HYDROCHLOROTHIA | | | | ZID | | + + + + | 2021-10-12 00:00 | | [facility] | | | TRIAMTERENE/HYDROCHLOROTHIA | | | | ZID | | + + + + | 2021-12-03 00:00 | | [facility] | | | TRIAMTERENE/HYDROCHLOROTHIA | | | | ZID | | + + + + | 2021-12-08 00:00 | | [facility] | | | TRIAMTERENE/HYDROCHLOROTHIA | | | | ZID | | + + + + | 2022-02-27 00:00 | | [facility] | | | TRIAMTERENE/HYDROCHLOROTHIA | | | | ZID | | + + + + | 2022-03-04 00:00 | | [facility] | | | TRIAMTERENE/HYDROCHLOROTHIA | | | | ZID | | + + + + | 2021-10-03 00:00 | LEVOFLOXACIN | [facility] | + + + + | 2021-10-03 00:00 | LEVOFLOXACIN | [facility] | + + + + | 2021-08-28 00:00 | METRONIDAZOLE | [facility] | + + + + | 2021-09-15 00:00 | METRONIDAZOLE | [facility] | + + + + | 2021-12-03 00:00 | SPIRONOLACTONE | [facility] | + + + + | 2021-12-08 00:00 | SPIRONOLACTONE | [facility] | + + + + | 2022-02-27 00:00 | SPIRONOLACTONE | [facility] | + + + + | 2022-03-04 00:00 | SPIRONOLACTONE | [facility] | + + + + | 2021-12-08 00:00 | PANTOPRAZOLE SODIUM | [facility] | + + + + | 2022-02-27 00:00 | PANTOPRAZOLE SODIUM | [facility] | + + + + | 2022-03-04 00:00 | PANTOPRAZOLE SODIUM | [facility] | + + + + | 2021-10-05 00:00 | SUCRALFATE | [facility] | + + + + | 2022-02-27 00:00 | ATORVASTATIN CALCIUM | [facility] | + + + + | 2022-03-04 00:00 | ATORVASTATIN CALCIUM | [facility] | + + + + | 2021-12-08 00:00 | ATORVASTATIN | [facility] | + + + + | 2021-12-08 00:00 | POTASSIUM CHLORIDE | [facility] | + + + + | 2022-02-27 00:00 | POTASSIUM CHLORIDE | [facility] | + + + + | 2022-03-04 00:00 | POTASSIUM CHLORIDE | [facility] | + + + + | 2021-08-28 00:00 | IBUPROFEN | [facility] | + + + + | 2021-09-15 00:00 | IBUPROFEN | [facility] | + + + + | 2021-10-12 00:00 | IBUPROFEN | [facility] | + + + + | 2021-12-03 00:00 | IBUPROFEN | [facility] | + + + + | 2021-12-08 00:00 | IBUPROFEN | [facility] | + + + + | 2022-02-27 00:00 | IBUPROFEN | [facility] | + + + + | 2022-03-04 00:00 | IBUPROFEN | [facility] | + + + + | 2013-06-12 00:00 | AMOXICILLIN/POTASSIUM CLAV | [facility] | | | | | + + + + | 2013-06-12 00:00 | AMOXICILLIN/POTASSIUM CLAV | [facility] | | | | | + + + + | 2022-02-27 00:00 | TRAZODONE HCL | [facility] | + + + + | 2022-03-04 00:00 | TRAZODONE HCL | [facility] | + + + + | 2021-10-12 00:00 | HYDROCODONE | [facility] | | | BIT/ACETAMINOPHEN | | + + + + | 2021-08-28 00:00 | TAMSULOSIN HCL | [facility] | + + + + | 2021-09-15 00:00 | TAMSULOSIN HCL | [facility] | + + + + | 2021-10-12 00:00 | TAMSULOSIN HCL | [facility] | + + + + | 2021-12-03 00:00 | TAMSULOSIN HCL | [facility] | + + + + | 2021-12-08 00:00 | TAMSULOSIN HCL | [facility] | + + + + | 2022-02-27 00:00 | TAMSULOSIN HCL | [facility] | + + + + | 2022-03-04 00:00 | TAMSULOSIN HCL | [facility] | + + + + | 2021-12-08 00:00 | METHENAMINE HIPPURATE | [facility] | + + + + | 2022-02-27 00:00 | METHENAMINE HIPPURATE | [facility] | + + + + | 2022-03-04 00:00 | METHENAMINE HIPPURATE | [facility] | + + + + | 2021-12-03 00:00 | METHENAMINE MANDELATE | [facility] | + + + + | 2021-12-08 00:00 | ACETAMINOPHEN WITH CODEINE | [facility] | | | | | + + + + | 2022-02-27 00:00 | ACETAMINOPHEN WITH CODEINE | [facility] | | | | | + + + + | 2022-03-04 00:00 | ACETAMINOPHEN WITH CODEINE | [facility] | | | | | + + + + | 2021-08-28 00:00 | ACETAMINOPHEN WITH CODEINE | [facility] | | | #3 | | + + + + | 2021-09-15 00:00 | ACETAMINOPHEN WITH CODEINE | [facility] | | | #3 | | + + + + | 2021-10-12 00:00 | ACETAMINOPHEN WITH CODEINE | [facility] | | | #3 | | + + + + | 2021-12-03 00:00 | ACETAMINOPHEN WITH CODEINE | [facility] | | | #3 | | + + + + | 2021-12-08 00:00 | ACETAMINOPHEN WITH CODEINE | [facility] | | | #3 | | + + + + | 2022-02-27 00:00 | ACETAMINOPHEN WITH CODEINE | [facility] | | | #3 | | + + + + | 2022-03-04 00:00 | ACETAMINOPHEN WITH CODEINE | [facility] | | | #3 | | + + + + Problems + + + + | date | description | facility | + + + + | 2015-02-17 00:00 | Encounter for removal of | [facility] | | | sutures | | + + + + | 2015-02-17 00:00 | Encounter for removal of | [facility] | | | sutures | | + + + + | 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[facility] | + + + + | 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[facility] | + + + + | 2021-10-04 00:00 | Hypomagnesemia | [facility] | + + + + | 2021-10-04 00:00 | Hypomagnesemia | [facility] | + + + + | 2021-10-04 00:00 | Hyponatremia | [facility] | + + + + | 2021-10-04 00:00 | Hyponatremia | [facility] | + + + + | 2021-10-04 00:00 | Hypokalemia | [facility] | + + + + | 2021-10-04 00:00 | Hypokalemia | [facility] | + + + + | 2021-10-04 00:00 | Urinary tract infection | [facility] | + + + + | 2021-10-04 00:00 | Urinary tract infection | [facility] | + + + + | 2021-10-04 00:00 | Chest pain | [facility] | + + + + | 2021-10-04 00:00 | Chest pain | [facility] | + + + + | 2021-12-07 00:00 | Intracerebral hemorrhage | [facility] | + + + + | 2022-02-27 00:00 | Skin tear of right upper | [facility] | | | extremity | | + + + + | 2022-03-04 00:00 | Local infection of wound | [facility] | + + + + | [...]
[~2022-10-16 16:35] MED LIST changes: +CEPHALEXIN500 M1 PO; -MAGNESIUM30 MG PO; +MAGNESIUM400 M1 PO
--- OUTSIDE RECORDS SUMMARY | 2022-10-16 16:37 | XMS ---
PreManage Notification: CALEB LESTER Security Forms Examiner Events No recent Security Events currently on file CRITERIA MET - [facility] CARE PROVIDERS There are no care providers on record at this time. Lukasz has no Care Guidelines for this patient. Dinor[place] VISIT COUNT (12 MO.) 4 [facility] [place] TOTAL 4 NOTE: Visits indicate total known visits. ED/C VISIT TRACKING (12 MO.) 10/16/2022 16:35 [facility] [place] TYPE: Emergency COMPLAINT: - POSS STROKE/ FALL 03/04/2022 11:40 [facility] [place] TYPE: Emergency COMPLAINT: - SKIN PROBLEM DIAGNOSES: - Allergy status to other antibiotic agents - Allergy status to other drugs, medicaments and biological substances - Allergy status to sulfonamides - Essential (primary) hypertension - Gastro-esophageal reflux disease without esophagitis - Laceration without foreign body of right forearm, subsequent encounter - Local infection of the skin and subcutaneous tissue, unspecified - residential (current) use of aspirin - Other supervisor intermediates (current) drug therapy - Unspecified fall, subsequent encounter 02/27/2022 15:18 [facility] [place] TYPE: Emergency COMPLAINT: - RT HAND LACERATION DIAGNOSES: - Allergy status to other antibiotic agents - Allergy status to other drugs, medicaments and biological substances - Allergy status to sulfonamides - Essential (primary) hypertension - Gastro-esophageal reflux disease without esophagitis - Laceration without foreign body of right forearm, initial encounter - Laceration without foreign body of right upper arm, initial encounter - residential (current) use of aspirin - Other supervisor intermediates (current) drug therapy - Striking against other object with subsequent fall, initial encounter 12/07/2021 11:01 [facility] [place] TYPE: Emergency COMPLAINT: - STROKE SYMPTOMS INPATIENT VISIT TRACKING (12 MO.) 12/07/2021 11:02 [facility] [place] TYPE: Observation COMPLAINT: - STROKE VS TIA DIAGNOSES: - Allergy status to other drugs, medicaments and biological substances - Allergy status to sulfonamides - Carotid artery syndrome (hemispheric) - Contact with and (suspected) exposure to COVID-19 - Essential (primary) hypertension - Gastro-esophageal reflux disease without esophagitis - Hyperlipidemia, unspecified - Hypo-osmolality and hyponatremia - Neuromuscular dysfunction of bladder, unspecified [email or web address]
[2022-10-16 17:18] LABS: BASOPHILS 0.9 % (0-2); EOSINOPHILS 0.4 % (0-6); HEMATOCRIT 33.7 % (35.0-50.0); HEMOGLOBIN 11.9 g/dL (12.0-18.0); LYMPHOCYTES 3.9 % (24-44); MCH 31.2 (27-36); MCHC 35.2 g/dl (30-36); MCV 88.5 fl (81-99); NEUTROPHILS 88.8 % (39-80); PLATELET COUNT 175 K/uL (140-440); RBC 3.81 M/ul (4.3-5.7); RDW 13.4 (10.5-15.0)
[2022-10-16 17:25] LABS: INR 0.93 (0.80-1.30); PROTIME 12.1 Sec (11.2-14.2)
[2022-10-16 17:27] LABS: BILIRUBIN, URINE NEGATIVE (negative); BLOOD/HGB, URINE MODERATE (Negative); KETONE, URINE NEGATIVE (Negative); LEUK ESTERASE, URINE LARGE (negative); NITRITE, URINE NEGATIVE (negative); PH, URINE 6.5 (5-7)
[2022-10-16 17:30] LABS: AMPHETAMINES, UR NEGATIVE (NEGATIVE); BARBITURATES, UR NEGATIVE (NEGATIVE); BENZODIAZEPINES, UR NEGATIVE (NEGATIVE); BUPRENORPHINE,UR NEGATIVE (NEGATIVE); COCAINE, UR NEGATIVE (NEGATIVE); MARIJUANA (THC), UR NEGATIVE (NEGATIVE); MDMA, UR NEGATIVE (NEGATIVE); METHADONE, UR NEGATIVE (NEGATIVE); METHAMPHETAMINE, UR NEGATIVE (NEGATIVE); OPIATES, UR POSITIVE (NEGATIVE); OXYCODONE, UR NEGATIVE (NEGATIVE); PHENCYCLIDINE, UR NEGATIVE (NEGATIVE); TRICYCLIC ANTIDEPRESSANT, UR NEGATIVE (NEGATIVE)
[2022-10-16 17:30] LABS: ALBUMIN 2.9 g/dL (3.4-5.0); ALBUMIN/GLOBULIN RATIO 0.91 (1.1-2.4); ANION GAP 10.3 (7-21); BUN/CREATININE RATIO 25.42 (6.0-28.6); CALCIUM 8.2 mg/dL (8.5-10.1); CREATININE, SERUM 0.59 mg/dL (0.55-1.02); POTASSIUM 3.3 mmol/L (3.5-5.1); PROTEIN, TOTAL 6.1 g/dL (6.4-8.2)
[2022-10-16 17:34] LABS: BACTERIA, URINE 1+ /hpf (negative); CASTS, URINE NONE SEEN \\lpf; COLLECTION TYPE, URINE CATH; CRYSTALS, URINE NONE SEEN (0-1+); EPITHELIAL CELLS, URINE SQUAMOUS 1+ /lpf (0-1+); REFLEX CULTURE, URINE Yes (No); WHITE BLOOD CELLS, URINE >50 /HPF (0-5)
[2022-10-16 19:21] VITALS: BP 194/87
[2022-10-16 20:00] VITALS: BP 145/61
--- NOTE | 2022-10-16 20:00 | NUR ---
VISITOR'S AT BEDSIDE DEMANDING PAIN MEDICATION. DR. ARROYO AT BEDSIDE EXPLAINING PLAN OF CARE TO PATIENT AND VISITOR'S. PAIN ADRESSED AND TYLENOL ORDERED.
[2022-10-16 22:34] LABS: ANION GAP 9.5 (7-21); BUN/CREATININE RATIO 23.21 (6.0-28.6); CALCIUM 8.2 mg/dL (8.5-10.1); CREATININE, SERUM 0.56 mg/dL (0.55-1.02); POTASSIUM 3.5 mmol/L (3.5-5.1)
[2022-10-16 23:00] VITALS: BP 151/55
[2022-10-17] VITALS (15 sets, daily range): BP systolic 101–159; BP diastolic 53–96
--- NOTE | 2022-10-17 | NUR ---
PATIENT HAS WOUND OF LEFT SHOULDER. LIDOCAINE PLACED ON THE LEFT BACK. ABD PAD AND WRAPPED. PICTURES TAKEN.
[2022-10-17 02:41] LABS: CALCIUM 8.1 mg/dL (8.5-10.1); CREATININE, SERUM 0.5 mg/dL (0.55-1.02)
--- NOTE | 2022-10-17 02:46 | NUR ---
na of [address] phillips. no further orders at this time.
--- NOTE | 2022-10-17 04:00 | NUR ---
PAIN MEDICATION GIVEN. PATIENT IS NOW RESTING IN BED.
[2022-10-17 05:31] LABS: BASOPHILS 0.5 % (0-2); EOSINOPHILS 0.8 % (0-6); HEMATOCRIT 30.7 % (35.0-50.0); LYMPHOCYTES 6.5 % (24-44); MCHC 35.8 g/dl (30-36); MCV 86.6 fl (81-99); MONOCYTES 6.6 % (0-12); NEUTROPHILS 85.6 % (39-80); PLATELET COUNT 172 K/uL (140-440); RBC 3.54 M/ul (4.3-5.7); RDW 13.8 (10.5-15.0)
[2022-10-17 05:37] LABS: ANION GAP 7.8 (7-21); BUN/CREATININE RATIO 14.75 (6.0-28.6); CALCIUM 8.1 mg/dL (8.5-10.1); CREATININE, SERUM 0.61 mg/dL (0.55-1.02); POTASSIUM 3.8 mmol/L (3.5-5.1)
--- NOTE | 2022-10-17 05:59 | EKG ---
[facility] [address] [place] [address] Signed Sinus rhythm with occasional premature ventricular complexes Left axis deviation Minimal voltage criteria for LVH, may be normal variant ( Kyler product ) Septal infarct (cited on or before 22-SEP-2021) Abnormal ECG When compared with ECG of 07-DEC-2021 11:49, premature ventricular complexes are now present Confirmed by REHANA ARROYO MD ([id number]) on 10/17/2022 5:59:43 AM Electronically Signed By: REHANA ARROYO 10/17/22 0559 PATIENT NAME: CALEB LESTER Electrocardiogram DATE OF : 35 PHYSICIAN: REHANA ARROYO REPORT #: [id number] REPORT IS CONFIDENTIAL AND NOT TO BE RELEASED WITHOUT AUTHORIZATION
--- NOTE | 2022-10-17 07:54 | NUR ---
DR. ARROYO IN ROOM TO SEE PATIENT AT THIS TIME AND DISCUSSING PLAN OF CARE. PT TO START ON 3% SALINE AND RECHECK SODIUM LEVEL AT 1000. PT HAS CARTER AT THIS TIME. PLAN OF CARE RESUMES. PT RATES PAIN 7/10 IN HER BACK AT THIS TIME.
[2022-10-17] MEDS ORDERED: DDAVP0.2 MG PO (07:59)
--- NOTE | 2022-10-17 08:22 | NUR ---
3% SALINE STARTED AT 15 ML/HR. PT'S FAMILY NOW IN ROOM VISITING AND ALSO EATING HER BREAKFAST.
[2022-10-17] MEDS ORDERED: ONDANSETRON HCL4 MG PO (08:45)
[2022-10-17] MEDS ORDERED: OXYBUTYNIN CHLOR5 MG PO (08:45)
[2022-10-17] MEDS ORDERED: GLYDO11 ML URETHRAL (08:47)
[2022-10-17] MEDS ORDERED: MELOXICAM7.5 MG PO (08:47)
--- NOTE | 2022-10-17 09:14 | NUR ---
MED REC COMPLETE
--- NOTE | 2022-10-17 09:21 | NUR ---
SPOKE TO PATIENT ABOUT HER DISCHARGE PLAN. PATIENT LIVES ALONE. PATIENT HAS FRIENDS AND FAMILY THAT ARE AVAILABLE NEEDED, PATIENT CAN DO HER OWN ADLS. PATIENT USES A CANE. PATIENT STILL DRIVES A CAR TO SHOP AND GET TO MD APPOINTMENTS.PATIENT SELF CATHS AND IT IS NOTED THAT THE PATIENT HAS A UTI. PATIENT'S DEMOGRATHICS ARE CORRECT IN THE MEDICAL RECORD. PATIENT DOES NOT NOT WHAT A SNF AT THIS TIME. HOUSE MOVER SUPERVISOR WILL RE-ACCESS THE NEED FOR SNF DURING THE PATIENT'S HOSPITAL STAY. PATIENT CAN AFFORD HOUSING AND FOOD.
--- NOTE | 2022-10-17 09:23 | NUR ---
PATIENT'S FAMILY AND FRIENDS HAVE LEFT FOR NOW AND PT IS RESTING. WILL CONTINUE TO MONITOR.
--- NOTE | 2022-10-17 09:27 | NUR ---
PT IN BED. PARTICIPATED IN CONVERSATION. COMPLAINED OF DISCOMFORT IN HER BACK AND EXPRESSED UNDERSTANDING OF WHY NURSES COULD NOT GIVE MORE PAIN MEDICATION AT THIS TIME. CONSENTED TO PRAYER. PRAYED FOR HEALING, PATIENCE AND ABIDING PEACE.
[2022-10-17 10:12] LABS: ANION GAP 7.7 (7-21); BUN/CREATININE RATIO 15.87 (6.0-28.6); CALCIUM 8.2 mg/dL (8.5-10.1); CREATININE, SERUM 0.63 mg/dL (0.55-1.02); POTASSIUM 3.7 mmol/L (3.5-5.1)
--- NOTE | 2022-10-17 13:40 | NUR ---
BACK TO BED PER PATIENT REQUEST. C/O LOWER BACK PAIN.
--- NOTE | 2022-10-17 13:47 | NUR ---
TYLENOL 1000 MG PO GIVEN LOWER BACK PAIN. WARM BLANKET TO LOWER BACK APPLIED.
--- NOTE | 2022-10-17 14:07 | NUR ---
PATIENT'S SON HAS ARRIVED AGAIN TO VISIT, AND HER OTHER FRIEND IS LEAVING FROM VISITING AGAIN. PT'S 1400 SODIUM LEVEL IS PENDING.
[2022-10-17 14:19] LABS: ANION GAP 8.7 (7-21); BUN/CREATININE RATIO 13.41 (6.0-28.6); CALCIUM 8.2 mg/dL (8.5-10.1); CREATININE, SERUM 0.82 mg/dL (0.55-1.02); POTASSIUM 3.7 mmol/L (3.5-5.1)
--- NOTE | 2022-10-17 14:29 | NUR ---
PATIENT WORKING WITH PHYS THERAPY AT THIS TIME. 1400 SODIUM LEVEL HAS COME BACK AT 115, AND IVF OF 3% SALINE WILL CONTINUE AT 15 ML/HR. CONTINUE TO MONITOR.
[2022-10-17 18:13] LABS: ANION GAP 8.6 (7-21); BUN/CREATININE RATIO 15.78 (6.0-28.6); CALCIUM 8.1 mg/dL (8.5-10.1); CREATININE, SERUM 0.76 mg/dL (0.55-1.02); POTASSIUM 3.6 mmol/L (3.5-5.1)
--- NOTE | 2022-10-17 19:30 | NUR ---
PT ASSESSED AND FOUND TO BE LAYING IN HOSPITAL BED, CONSCIOUS, ALERT AND ORIENTED X 4 WITH A GCS OF 15. SAFETY CHECK PERFORMED AND ALARM PERAMETERS SET. PT FOLLOWS ALL COMMANDS AND MOVES EXTREMITIES WITH PURPOSE. PIV ASSESSED AND FOUND TO BE PATENT. V/S OBTAINED. EDUCATION REGARDING DIET, S/S OF HYPONATREMIA AND CURRENT TREATMENT PLAN PROVIDED. PT WITH NO QUESTIONS OR CONCERNS AT THIS TIME.
--- NOTE | 2022-10-17 20:00 | NUR ---
BEDSIDE SWALLOW TEST PERFORMED - PT WITH NO COUGHING OR CHOKING NOTED
[2022-10-17 22:14] LABS: ANION GAP 6.5 (7-21); BUN/CREATININE RATIO 17.1 (6.0-28.6); CALCIUM 7.8 mg/dL (8.5-10.1); CREATININE, SERUM 0.76 mg/dL (0.55-1.02); POTASSIUM 3.5 mmol/L (3.5-5.1)
--- NOTE | 2022-10-17 22:19 | NUR ---
LAB CALLED TO REPORT CRITICAL NA OF 119. DR. ARROYO CALLED AND INFORMED. ADVISED BY DR. ARROYO TO CONTINUE NA 3% GTT AT SAME RATE. NO NEW ORDERS OBTAINED AT THIS TIME.
[2022-10-17 23:48] LABS: OSMOLALITY 232 mOsm/kg (280-303)
[2022-10-18] VITALS (19 sets, daily range): BP systolic 106–153; BP diastolic 48–92
[2022-10-18 02:00] LABS: URINE OSMOLALITY 461 mOsm/kg (50-800)
[2022-10-18 02:26] LABS: ANION GAP 7.3 (7-21); BUN/CREATININE RATIO 19.4 (6.0-28.6); CALCIUM 7.9 mg/dL (8.5-10.1); CREATININE, SERUM 0.67 mg/dL (0.55-1.02); POTASSIUM 3.3 mmol/L (3.5-5.1)
--- NOTE | 2022-10-18 02:30 | NUR ---
NA NOTED TO BE 125. DR. FRANKLIN NOTIFIED IN PERSON. NA 3% GTT STOPPED. NO FURTHER ORDERS OBTAINED.
[2022-10-18 05:43] LABS: BASOPHILS 0.8 % (0-2); EOSINOPHILS 1.9 % (0-6); HEMATOCRIT 32.7 % (35.0-50.0); HEMOGLOBIN 11.3 g/dL (12.0-18.0); LYMPHOCYTES 7.2 % (24-44); MCH 30.7 (27-36); MCHC 34.7 g/dl (30-36); MCV 88.7 fl (81-99); MONOCYTES 8.9 % (0-12); NEUTROPHILS 81.2 % (39-80); PLATELET COUNT 165 K/uL (140-440); RBC 3.68 M/ul (4.3-5.7); RDW 13.8 (10.5-15.0)
[2022-10-18 06:06] LABS: ANION GAP 10.8 (7-21); BUN/CREATININE RATIO 18.05 (6.0-28.6); CALCIUM 8.3 mg/dL (8.5-10.1); CREATININE, SERUM 0.72 mg/dL (0.55-1.02); POTASSIUM 3.8 mmol/L (3.5-5.1)
--- NOTE | 2022-10-18 08:30 | NUR ---
PT REMAINS AWAKE, ALERT AND ORIENTED X 4 WITH A GCS OF 15. PT MOVES ALL EXTREMITIES WITH PURPOSE. PT DENIES ANY NEW NUMBNESS/ TINGLING SENSATION. PT HAS BEEN IN A NSR TO SB, NORMOTENSIVE AND A-FEBRILE. RESPIRATIONS REMAIN UNLABORED. PT HAS CLEAR LS AND CONTINUES TO BE ON RA. UO 125 TO 150 HR. NA 3% GTT STOPPED AT 0200. 0600 LABS REVEAL AN INCREASE IN NA TO 129. DR. ARROYO AWARE AND NEW ORDER PLACED. PT REPORT GIVEN TO ANDRE ARREOLA. PT WITH NO QUESTIONS OR CONCERNS AT THIS TIME. CALL LIGHT PLACED AT PTS SIDE.
--- NOTE | 2022-10-18 09:19 | NUR ---
SPOKE TO PATIENT ABOUT HER DISCHARGE PLAN. PATIENT PLANS TO GO HOME TO HER HOUSE WHERE PATIENT LIVES ALONE.PATIENT HAS FRIENDS AND FAMILY THAT ARE AVAILABLE TO HELP AND CHECK IN ON THE PATIENT OFTEN.PATIENT MAY GO HOME TOMORROW IF MEDICALLY STABLE.
[2022-10-18 10:21] LABS: ANION GAP 7.5 (7-21); BUN/CREATININE RATIO 19.04 (6.0-28.6); CALCIUM 8.2 mg/dL (8.5-10.1); CREATININE, SERUM 0.63 mg/dL (0.55-1.02); POTASSIUM 3.5 mmol/L (3.5-5.1)
--- NOTE | 2022-10-18 10:40 | NUR ---
NOTIFIED OF PT 10:OO NA RESULT OF 125. VO TO STOP ALL FLUIDS AND INCREASE FLUID RESTRICTION TO 1500ML/DAY.
--- NOTE | 2022-10-18 11:50 | NUR ---
ASSISTED PT WITH MEAL TRAY SET UP. PT IS A/O, RESPIRATIONS EVEN AND REGULAR. DENIES NEEDS ATT.
--- NOTE | 2022-10-18 13:55 | NUR ---
PT IS A/O, RESPIRATIONS EVEN AND REGULAR. MEDICATION ADMINISTRATION COMPLETE. PT DENIES NEEDS ATT.
[2022-10-18 14:26] LABS: ANION GAP 10.6 (7-21); BUN/CREATININE RATIO 17.85 (6.0-28.6); CALCIUM 8.3 mg/dL (8.5-10.1); CREATININE, SERUM 0.84 mg/dL (0.55-1.02); POTASSIUM 3.6 mmol/L (3.5-5.1)
--- NOTE | 2022-10-18 15:02 | NUR ---
VO GIVEN BY DR ARROYO FOR RESTART OF FLUIDS X 2 HOURS. IV FLUIDS RUNNING. PT IS A/O, RESPIRATIONS EVEN AND REGULAR. DENIES NEEDS ATT. CALL LIGHT WITHIN REACH.
--- NOTE | 2022-10-18 16:24 | NUR ---
CARE OF PATIENT RESUMED AT 1600 FROM [facility]. PT RESTING IN BED WITH HER FRIEND ALYSIA IN ROOM. IVF CONTINUE AT 200 ML/HR FOR AN ADDITIONAL 107 ML AND THEN WILL BE D/C. NEXT SODIUM LEVEL TO BE CHECKED AT 1800. PT DOES NOT WANT A SHOWER TODAY, BUT WOULD BE WILLING TO HAVE A BED BATH. PT AGREEABLE TO GET UP TO CHAIR FOR DINNER. PT STATES OVERALL SHE IS FEELING MUCH BETTER.
--- NOTE | 2022-10-18 16:54 | NUR ---
patient got up to the chair for dinner. patient tollorated that well. call light within reach. Bed linens changed. call light within reach.
--- NOTE | 2022-10-18 17:18 | NUR ---
PATIENT UP TO CHAIR FOR HER DINNER AND TOLERATED MOVING WELL. D5 WATER HAS INFUSED FOR 400 ML TOTAL AND IS NOW SALINE LOCKED PER MD. NEXT RECHECK OF SODIUM LEVEL IS AT 1800.
--- NOTE | 2022-10-18 18:32 | NUR ---
LAB IN ROOM TO DRAW 1800 BMP. WILL CONTINUE TO MONITOR.
[2022-10-18 18:48] LABS: ANION GAP 11.7 (7-21); BUN/CREATININE RATIO 20.73 (6.0-28.6); CALCIUM 8.3 mg/dL (8.5-10.1); CREATININE, SERUM 0.82 mg/dL (0.55-1.02); POTASSIUM 3.7 mmol/L (3.5-5.1)
--- NOTE | 2022-10-18 19:45 | NUR ---
PT ASSESSED AND FOUND TO BE SITTING IN CHAIR. PT IS CONSCIOUS, ALERT ORIENTED WITH A GCS OF 15. PT MOVES ALL EXTREMITIES WITH PURPOSE. V/S ASSESSED AND ALARM LIMITS CHECKED. PTS RESPIRATIONS ARE NON-LABORED. PT DENIES ANY SOB. PT IS IN A NSR, NORMOTENSIVE AND A-FEBRILE. PIV ASSESSED AND FOUND TO BE PATENT. NA 125. PT WITH IV LOCK AT THIS TIME. PT WITH + UC AND CONTINUES TO BE TREATED WITH PO KEFLEX. EDUCATION REGARDING DIAGNOSIS PROVIDED. PT WITH NO QUESTIONS OR CONCERNS AT THIS TIME. CALL LIGHT PROVIDED TO PT WHILE IN CHAIR.
[2022-10-18 22:08] LABS: ANION GAP 9.7 (7-21); CALCIUM 8.4 mg/dL (8.5-10.1); CREATININE, SERUM 0.75 mg/dL (0.55-1.02); POTASSIUM 3.7 mmol/L (3.5-5.1)
--- NOTE | 2022-10-18 23:17 | NUR ---
NA NOTED AT 125. DR. ARROYO MADE AWARE. NO NEW ORDERS OBTAINED AT THIS TIME.
[2022-10-19] VITALS (8 sets, daily range): BP systolic 115–167; BP diastolic 53–93
--- NOTE | 2022-10-19 03:11 | NUR ---
PT NOTED TO HAVE A RUN OF VENTRICULAR TACHYCARDIA LASTING LESS THAN A MINUTE. BMP, MAG AND EKG ORDERED.
[2022-10-19 03:45] LABS: ANION GAP 10.7 (7-21); BUN/CREATININE RATIO 31.14 (6.0-28.6); CALCIUM 8.3 mg/dL (8.5-10.1); CREATININE, SERUM 0.61 mg/dL (0.55-1.02); MAGNESIUM 1.8 mg/dL (1.8-2.4); POTASSIUM 3.7 mmol/L (3.5-5.1)
[2022-10-19 06:06] LABS: BASOPHILS 0.8 % (0-2); EOSINOPHILS 2.9 % (0-6); HEMATOCRIT 29.3 % (35.0-50.0); HEMOGLOBIN 10.2 g/dL (12.0-18.0); LYMPHOCYTES 9.5 % (24-44); MCH 30.9 (27-36); MCV 88.3 fl (81-99); MONOCYTES 10.1 % (0-12); NEUTROPHILS 76.7 % (39-80); PLATELET COUNT 155 K/uL (140-440); RBC 3.31 M/ul (4.3-5.7); RDW 13.8 (10.5-15.0)
[2022-10-19 06:13] LABS: ANION GAP 10.8 (7-21); BUN/CREATININE RATIO 27.58 (6.0-28.6); CALCIUM 8.2 mg/dL (8.5-10.1); CREATININE, SERUM 0.58 mg/dL (0.55-1.02); POTASSIUM 3.8 mmol/L (3.5-5.1)
--- NOTE | 2022-10-19 06:21 | NUR ---
PT REMAINS ALERT AND ORIENTED X 4 WITH A GCS OF 15. PT WITH NO NEUROLOGIC CHANGES THROUGHOUT THE NIGHT. PT HAS BEEN IN A NSR, NORMOTENSIVE AND A-FEBRILE. PT WITH RUN OF V-TACH LASTING ONLY SECONDS. V/S REASSESSED, LABS DRAWN AND MD NOTIFIED. PT DENIES CP, SOB OR DIZZINESS. PT WITH 575 CC U/O. LABS: NA 125, K 3.8, H/H STABLE. PT ABLE TO TURN SELF FROM SIDE TO SIDE TO MAINTAIN SKIN INTEGRITY.
[2022-10-19] MEDS ORDERED: CEPHALEXIN500 MG PO (06:51)
--- NOTE | 2022-10-19 07:20 | NUR ---
report from kelli mariscal, dr phillips here - plan to dc pt home today.
--- NOTE | 2022-10-19 08:20 | NUR ---
Spoke with Amena, she plans on dc soon. She denies any needs. IM letter given and pt denies wanting to appeal. She also does not want to wait 4 hrs to consider appeal. Pt will dc to home, no needs.
--- NOTE | 2022-10-19 09:30 | NUR ---
PATIENT INTO SHOWER REQUIRING VERY LITTLE ASSISTANCE FROM THIS TERMINAL BLOCK ASSEMBLER. PATIENT WHEELED BACK TO ROOM WHERE SHE DRESSED IN PERSONAL CLOTHING IN PREPARATION FOR D/C. FRIEND IN ROOM WELL. VITALS AND I&OS CHARTED.
--- NOTE | 2022-10-19 20:55 | EKG ---
[facility] [address] [place] [address] Signed Sinus rhythm with premature supraventricular complexes Left axis deviation Septal infarct (cited on or before 22-SEP-2021) Abnormal ECG When compared with ECG of 16-OCT-2022 17:42, premature ventricular complexes are no longer present premature supraventricular complexes are now present Nonspecific T wave abnormality no longer evident in Inferior leads Confirmed by Misha Ambrose MD () on 10/19/2022 8:54:49 PM Electronically Signed By: MISHA AMBROSE MD 10/19/222054 PATIENT NAME: CALEB LESTER Electrocardiogram DATE OF : 35 PHYSICIAN: MISHA AMBROSE MD REPORT #: [id number] REPORT IS CONFIDENTIAL AND NOT TO BE RELEASED WITHOUT AUTHORIZATION
== END 2022-10-19 10:05 | disposition home or self-care (01) | DRG 641 ==
LOC: ED 16:35 → CCU 18:40
PROVIDERS: Emergency Medicine; ADMIT Family Medicine; ATTEND Family Medicine
DX: E87.1 Hypo-osmolality and hyponatremia (principal); N39.0 Urinary tract infection, site not specified; M54.9 Dorsalgia, unspecified; G89.29 Other chronic pain; I10 Essential (primary) hypertension; E78.5 Hyperlipidemia, unspecified; N31.9 Neuromuscular dysfunction of bladder, unspecified; S40.012A Contusion of left shoulder, initial encounter; T38.895A Adverse effect of other hormones and synthetic substitutes, initial encounter; K21.9 Gastro-esophageal reflux disease without esophagitis; B96.20 Unspecified Escherichia coli [E. coli] as the cause of diseases classified elsewhere; W01.0XXA Fall on same level from slipping, tripping and stumbling without subsequent striking against object, initial encounter; Z88.2 Allergy status to sulfonamides; Z88.1 Allergy status to other antibiotic agents; Z79.02 Long term (current) use of antithrombotics/antiplatelets; Z79.899 Other long term (current) drug therapy; Z79.2 Long term (current) use of antibiotics; Z79.82 Long term (current) use of aspirin; Z90.710 Acquired absence of both cervix and uterus; Z98.890 Other specified postprocedural states; Z88.8 Allergy status to other drugs, medicaments and biological substances
CPT/HCPCS: 36415; 70450; 71045; 72125; 73030; 80048; 80053; 81001; 83735; 83930; 83935; 84300; 85025; 85610; 87088; 93005; 93010; 97161; A9270; J2405; J2597; J3480; J7070; J7131

== ENCOUNTER 2023-09-18 02:36 | Inpatient (IN) | payer MEDICARE, OTHER ==
[2023-09-18] VITALS (8 sets, daily range): BP systolic 116–134; BP diastolic 47–63
[~2023-09-18] VITALS: Ht 167.6 cm; Wt 64.3 kg
[~2023-09-18 02:36] MED LIST changes: +CEPHALEXIN500 MG PO; +DDAVP0.2 MG PO; +GLYDO11 ML URETHRAL; +MELOXICAM7.5 MG PO; +ONDANSETRON HCL4 MG PO; +OXYBUTYNIN CHLOR5 MG PO
--- OUTSIDE RECORDS SUMMARY | 2023-09-18 02:38 | XMS ---
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 Lukasz has no Care Guidelines for this patient. Din[place] VISIT COUNT (12 MO.) 3 [facility] TOTAL 3 NOTE: Visits indicate total known visits. ED/C VISIT TRACKING (12 MO.) [facility] 02[facility] [place] COMPLAINT: - FEVER 09/15/2023 01:31 [facility] [place] TYPE: Emergency COMPLAINT: - FALL/HEAD LACERATION DIAGNOSES: - Allergy status to other drugs, medicaments and biological substances - Allergy status to sulfonamides - Essential (primary) hypertension - Fall on same level, unspecified, initial encounter - Laceration without foreign body of left upper arm, initial encounter - Laceration without foreign body of other part of head, initial encounter - Laceration without foreign body of right upper arm, initial encounter - Other correction (current) drug therapy 10/16/2022 16:35 [facility] [place] TYPE: Emergency COMPLAINT: - POSS STROKE/ FALL INPATIENT VISIT TRACKING (12 MO.) 10/16/2022 18:40 [facility] [place] TYPE: Critical Care COMPLAINT: - HYPONATREMIA DIAGNOSES: - Acquired absence of both cervix and uterus - Acquired absence of both cervix and uterus - Adverse effect of other hormones and synthetic substitutes, initial encounter - Adverse effect of other hormones and synthetic substitutes, initial encounter - Allergy status to other antibiotic agents - Allergy status to other antibiotic agents - Allergy status to other drugs, medicaments and biological substances - Allergy status to other drugs, medicaments and biological substances - Allergy status to sulfonamides - Allergy status to sulfonamides - Contusion of left shoulder, initial encounter - Contusion of left shoulder, initial encounter - Dorsalgia, unspecified - Dorsalgia, unspecified - Essential (primary) hypertension - Essential (primary) hypertension - Fall on same level from slipping, tripping and stumbling without subsequent striking against object, initial encounter - Fall on same level from slipping, tripping and stumbling without subsequent striking against object, initial encounter - Gastro-esophageal reflux disease without esophagitis - Gastro-esophageal reflux disease without esophagitis - Hyperlipidemia, unspecified - Hyperlipidemia, unspecified - Hypo-osmolality and hyponatremia - USP (current) use of antibiotics - USP (current) use of antibiotics - moth exterminator (current) use of antithrombotics/antiplatelets - USP (current) use of antithrombotics/antiplatelets - USP (current) use of aspirin - USP (current) use of aspirin - Neuromuscular dysfunction of bladder, unspecified - Neuromuscular dysfunction of bladder, unspecified - Other chronic pain - Other chronic pain - Other long term care administrator (current) drug therapy - Other correction (current) drug therapy - Other specified postprocedural states - Other specified postprocedural states - Unspecified Escherichia coli [E. coli] as the cause of diseases classified elsewhere - Unspecified Escherichia coli [E. coli] as the cause of diseases classified elsewhere - Unspecified injury of left shoulder and upper arm, initial encounter - Urinary tract infection, site not specified - Urinary tract infection, site not specified [email or web address]
[2023-09-18] MEDS ORDERED: SODIUM CHLORIDE 0.9% 1,000 ML IV PRN (02:45)
[2023-09-18] MEDS ORDERED: CEFTRIAXONE/SODIUM CHLORIDE 2 GM/100 ML PIGGYBACK IV ONE (02:45)
[2023-09-18] MEDS ORDERED: DAPTOmycin 500 MG/10 ML VIAL IV ONE (02:45)
[2023-09-18] MEDS ORDERED: ACETAMINOPHEN 325 MG TAB PO ONE (03:00)
[2023-09-18] MEDS ORDERED: HYDROmorphone HCL 1 MG/ML SYR IV ONE (03:15)
[2023-09-18 03:17] LABS: BILIRUBIN, URINE NEGATIVE (negative); BLOOD/HGB, URINE SMALL (Negative); KETONE, URINE TRACE (Negative); LEUK ESTERASE, URINE TRACE (negative); NITRITE, URINE POSITIVE (negative); PH, URINE 7.5 (5-7)
[2023-09-18 03:19] LABS: BASOPHILS 0.3 % (0-2); EOSINOPHILS 0.3 % (0-6); HEMATOCRIT 35.7 % (35.0-50.0); HEMOGLOBIN 11.9 g/dL (12.0-18.0); LYMPHOCYTES 2.2 % (24-44); MCH 30.7 (27-36); MCHC 33.4 g/dl (30-36); MCV 91.7 fl (81-99); MONOCYTES 4.4 % (0-12); NEUTROPHILS 92.8 % (39-80); PLATELET COUNT 240 K/uL (140-440); RDW 14.2 (10.5-15.0)
[2023-09-18 03:22] LABS: BACTERIA, URINE 2+ /hpf (negative); CASTS, URINE NONE SEEN \\lpf; COLLECTION TYPE, URINE CLEAN CATCH; CRYSTALS, URINE NONE SEEN (0-1+); EPITHELIAL CELLS, URINE SQUAMOUS 1+ /lpf (0-1+); REFLEX CULTURE, URINE Yes (No); WHITE BLOOD CELLS, URINE >50 /HPF (0-5)
[2023-09-18 03:24] LABS: INFLUENZA B NAA NEGATIVE (NEGATIVE); RESPIRATORY SYNCYTIAL VIR NAA NEGATIVE (NEGATIVE)
[2023-09-18 03:26] LABS: INR 0.99 (0.80-1.30); PROTIME 12.7 Sec (11.2-14.2)
[2023-09-18 03:28] LABS: PARTIAL THROMBOPLASTIN TIME 24.1 Sec (22.9-41.3)
[2023-09-18 03:34] LABS: ALBUMIN 2.8 g/dL (3.4-5.0); ALBUMIN/GLOBULIN RATIO 0.72 (1.1-2.4); ANION GAP 14.8 (7-21); BILIRUBIN, TOTAL 1.4 ng/dL (0.2-1.0); BUN/CREATININE RATIO 15.15 (6.0-28.6); CALCIUM 8.4 mg/dL (8.5-10.1); CREATININE, SERUM 0.66 mg/dL (0.55-1.02); POTASSIUM 3.8 mmol/L (3.5-5.1); PROTEIN, TOTAL 6.7 g/dL (6.4-8.2)
[2023-09-18 03:37] LABS: LACTIC ACID, BLOOD 1.5 mmol/L (0.4-2.0)
[2023-09-18] MEDS ORDERED: ACETAMINOPHEN 325 MG TAB PO PRN ×2 (03:45→10:00)
[2023-09-18] MEDS ORDERED: ondansetron HCL 4 MG/2 ML VIAL IV PRN ×2 (03:45→10:00)
[2023-09-18] MEDS ORDERED: LIDOCAINE 2% VISCOUS 6 ML SYR TOP ONE (03:45)
[2023-09-18] MEDS ORDERED: KETOROLAC TROMETHAMINE 15 MG/ML VIAL IV ONE (03:45)
[2023-09-18] MEDS ORDERED: NS + 20 mEq KCl 1,000 ML IV SCH (04:15)
[2023-09-18] MEDS ORDERED: PHENAZOPYRIDINE HCL 95 MG TAB PO PRN (08:45)
[2023-09-18] MEDS ORDERED: OXYCODONE-ACET1 EAC1 PO (09:05)
[2023-09-18] MEDS ORDERED: PREGABALIN25 MG PO (09:12)
[2023-09-18] MEDS ORDERED: LOSARTAN POTASS50 MG PO (09:13)
[2023-09-18] MEDS ORDERED: SODIUM CHLORIDE 0.9% 1,000 ML IV SCH ×2 (10:00→18:45)
[2023-09-18] MEDS ORDERED: FUROSEMIDE20 MG PO (10:10)
[2023-09-18] MEDS ORDERED: POTASSIUM CHLO10 ME1 PO (10:10)
[2023-09-18] MEDS ORDERED: PANTOPRAZOLE SODIUM 40 MG TABEC PO SCH (10:31)
[2023-09-18] MEDS ORDERED: oxyBUTYnin chloride 5 MG TAB PO PRN (10:45)
[2023-09-18] MEDS ORDERED: OXYCODONE/APAP 5/325 TAB PO PRN (10:45)
[2023-09-18] MEDS ORDERED: PHARMACY RENAL DOSE ADJUSTMENT 1 DOSE MISC PO SCH (12:00)
[2023-09-18] MEDS ORDERED: ATORVASTATIN 40 MG TAB PO SCH (21:00)
[2023-09-18] MEDS ORDERED: MELATONIN 3 MG TAB PO PRN (21:00)
[2023-09-18] MEDS ORDERED: DAPTOmycin 500 MG/10 ML VIAL IV SCH (21:00)
[2023-09-18] MEDS ORDERED: PREGABALIN 25 MG CAP PO SCH (21:00)
[2023-09-18] MEDS ORDERED: CEFTRIAXONE/SODIUM CHLORIDE 2 GM/100 ML PIGGYBACK IV SCH (21:00)
--- NOTE | 2023-09-18 21:13 | EKG ---
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 rate has increased BY 40 BPM Questionable change in initial forces of Anterior leads Confirmed by Misha Ambrose MD () on 09/18/2023 9:13:08 PM Electronically Signed By: MISHA AMBROSE MD 09/18/232112 PATIENT NAME: CALEB LESTER Electrocardiogram DATE OF : 35 PHYSICIAN: MISHA AMBROSE MD REPORT #: [id number] REPORT IS CONFIDENTIAL AND NOT TO BE RELEASED WITHOUT AUTHORIZATION
[2023-09-19] VITALS (9 sets, daily range): BP systolic 105–188; BP diastolic 53–68
[2023-09-19 05:31] LABS: BASOPHILS 0.3 % (0-2); EOSINOPHILS 2.7 % (0-6); HEMATOCRIT 32.2 % (35.0-50.0); HEMOGLOBIN 10.7 g/dL (12.0-18.0); LYMPHOCYTES 3.8 % (24-44); MCH 30.5 (27-36); MCHC 33.1 g/dl (30-36); MCV 92.2 fl (81-99); MONOCYTES 5.8 % (0-12); NEUTROPHILS 87.4 % (39-80); PLATELET COUNT 199 K/uL (140-440); RDW 14.6 (10.5-15.0)
[2023-09-19 05:43] LABS: ANION GAP 8.9 (7-21); BUN/CREATININE RATIO 14.06 (6.0-28.6); CREATININE, SERUM 0.64 mg/dL (0.55-1.02); MAGNESIUM 1.6 mg/dL (1.8-2.4); PHOSPHORUS, INORGANIC 2.1 mg/dL (2.5-4.9); POTASSIUM 2.9 mmol/L (3.5-5.1)
[2023-09-19] MEDS ORDERED: POTASSIUM PHOSPHATE 30 MMOL in DEXTROSE 5% 500 ML IV ONE (07:45)
[2023-09-19] MEDS ORDERED: MAGNESIUM SULFATE 2 GM/50 ML BAG IV ONE (07:45)
[2023-09-19] MEDS ORDERED: ENOXAPARIN SODIUM 40 MG/0.4 ML SYR SUB-Q SCH (09:00)
[2023-09-19] MEDS ORDERED: POLYETHYLENE GLYCOL 3350 1 PACKET PO SCH (09:32)
[2023-09-19] MEDS ORDERED: SIMETHICONE 125 MG TABLET CHEWABLE PO PRN (12:30)
[2023-09-19] MEDS ORDERED: SENNOSIDES/DOCUSATE 1 EA TAB PO SCH (21:00)
[2023-09-20] VITALS (11 sets, daily range): BP systolic 130–151; BP diastolic 63–85
[2023-09-20 05:39] LABS: BASOPHILS 0.3 % (0-2); HEMATOCRIT 27.2 % (35.0-50.0); HEMOGLOBIN 9.6 g/dL (12.0-18.0); LYMPHOCYTES 5.4 % (24-44); MCH 31.8 (27-36); MCHC 35.3 g/dl (30-36); MCV 90.1 fl (81-99); MONOCYTES 8.9 % (0-12); NEUTROPHILS 82.4 % (39-80); PLATELET COUNT 208 K/uL (140-440); RBC 3.02 M/ul (4.3-5.7); RDW 14.2 (10.5-15.0)
[2023-09-20 05:59] LABS: ALBUMIN 1.6 g/dL (3.4-5.0); ALBUMIN/GLOBULIN RATIO 0.47 (1.1-2.4); ANION GAP 11.1 (7-21); BILIRUBIN, TOTAL 0.3 ng/dL (0.2-1.0); BUN/CREATININE RATIO 7.81 (6.0-28.6); CALCIUM 7.8 mg/dL (8.5-10.1); CREATININE, SERUM 0.64 mg/dL (0.55-1.02); MAGNESIUM 1.9 mg/dL (1.8-2.4); PHOSPHORUS, INORGANIC 1.9 mg/dL (2.5-4.9); POTASSIUM 3.1 mmol/L (3.5-5.1)
[2023-09-20] MEDS ORDERED: POTASSIUM PHOSPHATE 30 MMOL in DEXTROSE 5% 500 ML IV ONE (08:15)
[2023-09-20] MEDS ORDERED: POTASSIUM CHLORIDE 10 MEQ TABCR PO ONE ×2 (12:45→15:45)
[2023-09-20] MEDS ORDERED: Trospium Chloride 20 MG TABLET PO SCH (21:00)
[2023-09-21] VITALS (8 sets, daily range): BP systolic 135–169; BP diastolic 58–87
[2023-09-21 07:13] LABS: BASOPHILS 0.3 % (0-2); EOSINOPHILS 4.3 % (0-6); HEMOGLOBIN 9.8 g/dL (12.0-18.0); LYMPHOCYTES 6.9 % (24-44); MCH 31.3 (27-36); MCHC 34.8 g/dl (30-36); MCV 89.9 fl (81-99); MONOCYTES 9.6 % (0-12); NEUTROPHILS 78.9 % (39-80); PLATELET COUNT 222 K/uL (140-440); RBC 3.12 M/ul (4.3-5.7); RDW 14.2 (10.5-15.0)
[2023-09-21 07:27] LABS: ANION GAP 11.2 (7-21); BUN/CREATININE RATIO 9.8 (6.0-28.6); CALCIUM 8.3 mg/dL (8.5-10.1); CREATININE, SERUM 0.51 mg/dL (0.55-1.02); POTASSIUM 4.2 mmol/L (3.5-5.1)
[2023-09-21] MEDS ORDERED: bisacodyL 10 MG SUPP PR ONE (10:15)
[2023-09-21] MEDS ORDERED: AMOXICILLIN/CLAVULANATE K 875 MG TAB PO SCH (10:15)
[2023-09-21] MEDS ORDERED: MAGNESIUM CITRATE 300 ML BTL PO ONE (13:45)
[2023-09-21] MEDS ORDERED: MAGNESIUM HYDROXIDE/AL HYDROX 30 ML CUP PO PRN (17:45)
[2023-09-22 00:46] VITALS: BP 141/85
[2023-09-22 04:17] VITALS: BP 144/76
[2023-09-22 05:38] VITALS: BP 144/76
[2023-09-22 06:53] LABS: HEMOGLOBIN 10.5 g/dL (12.0-18.0); LYMPHOCYTES 9.2 % (24-44)
[2023-09-22 06:55] LABS: BASOPHILS 0.5 % (0-2); EOSINOPHILS 4.4 % (0-6); HEMATOCRIT 30.2 % (35.0-50.0); MCH 31.4 (27-36); MCHC 34.7 g/dl (30-36); MCV 90.4 fl (81-99); MONOCYTES 10.6 % (0-12); NEUTROPHILS 75.3 % (39-80); PLATELET COUNT 259 K/uL (140-440); RBC 3.35 M/ul (4.3-5.7); RDW 14.3 (10.5-15.0)
[2023-09-22 07:07] LABS: ALBUMIN 1.8 g/dL (3.4-5.0); ALBUMIN/GLOBULIN RATIO 0.47 (1.1-2.4); BILIRUBIN, TOTAL 0.4 ng/dL (0.2-1.0); BUN/CREATININE RATIO 10.9 (6.0-28.6); CALCIUM 8.4 mg/dL (8.5-10.1); CREATININE, SERUM 0.55 mg/dL (0.55-1.02); PROTEIN, TOTAL 5.6 g/dL (6.4-8.2)
[2023-09-22] MEDS ORDERED: AMOX TR-K CLV1 EAC1 PO (09:12)
[2023-09-22 09:52] VITALS: BP 149/84
== END 2023-09-22 11:40 | disposition home or self-care (01) | DRG 872 ==
LOC: ED 02:36 → MS 02:38
PROVIDERS: Internal Medicine; ADMIT Family Medicine; ATTEND Family Medicine
DX: A41.9 Sepsis, unspecified organism (principal); N39.0 Urinary tract infection, site not specified; L03.116 Cellulitis of left lower limb; E87.1 Hypo-osmolality and hyponatremia; Z66 Do not resuscitate; K21.9 Gastro-esophageal reflux disease without esophagitis; I49.9 Cardiac arrhythmia, unspecified; E78.00 Pure hypercholesterolemia, unspecified; N31.9 Neuromuscular dysfunction of bladder, unspecified; I10 Essential (primary) hypertension; Z98.890 Other specified postprocedural states; W19.XXXA Unspecified fall, initial encounter; Z90.710 Acquired absence of both cervix and uterus; Z88.2 Allergy status to sulfonamides; Z88.8 Allergy status to other drugs, medicaments and biological substances; Z88.1 Allergy status to other antibiotic agents; Z79.899 Other long term (current) drug therapy
CPT/HCPCS: 36415; 51702; 71045; 80048; 80053; 81001; 82553; 83036; 83605; 83735; 84100; 85025; 85610; 85730; 87040; 87088; 87502; 93005; 93010; 97161; 97165; 97530; 99285-25; A9270; G0378; J0696; J0878; J1170; J1650; J1885; J3475; J3480; J7030; J7060; U0002

== ENCOUNTER 2024-04-01 09:00 | Emergency (ER) | payer MEDICARE, OTHER ==
[~2024-04-01] VITALS: Ht 167.6 cm; Wt 64.0 kg
[~2024-04-01 09:00] MED LIST changes: +AMOX TR-K CLV1 EAC1 PO; +LOSARTAN POTASS50 MG PO; +OXYCODONE-ACET1 EAC1 PO; +PREGABALIN25 MG PO
[2024-04-01 10:14] LABS: BASOPHILS 0.8 % (0-2); EOSINOPHILS 0.9 % (0-6); HEMATOCRIT 35.3 % (35.0-50.0); HEMOGLOBIN 11.9 g/dL (12.0-18.0); MCH 30.3 (27-36); MCHC 33.8 g/dl (30-36); MCV 89.7 fl (81-99); MONOCYTES 7.5 % (0-12); NEUTROPHILS 85.8 % (39-80); PLATELET COUNT 325 K/uL (140-440); RBC 3.93 M/ul (4.3-5.7); RDW 15.4 (10.5-15.0)
[2024-04-01 10:33] LABS: ALBUMIN 2.8 g/dL (3.4-5.0); ALBUMIN/GLOBULIN RATIO 0.76 (1.1-2.4); ANION GAP 12.6 (7-21); BILIRUBIN, TOTAL 0.6 ng/dL (0.2-1.0); BUN/CREATININE RATIO 24.39 (6.0-28.6); CALCIUM 8.8 mg/dL (8.5-10.1); CREATININE, SERUM 0.82 mg/dL (0.55-1.02); POTASSIUM 4.6 mmol/L (3.5-5.1); PROTEIN, TOTAL 6.5 g/dL (6.4-8.2)
[2024-04-01] MEDS ORDERED: SCOPOLAMINE 1 MG/3 DAYS PATCH 1 EACH TDSY TD ONE (12:15)
[2024-04-01] MEDS ORDERED: TRANSDERM-SCOP1 EACH TD (13:15)
[2024-04-01 13:32] VITALS: BP 187/70
[2024-04-04] MEDS ORDERED: SCOPOLAMINE 1 MG/3 DAYS PATCH 1 EACH TDSY TD SCH (09:00)
== END 2024-04-01 13:33 | disposition home or self-care (01) ==
LOC: ED 09:00
PROVIDERS: Emergency Medicine
DX: H81.13 Benign paroxysmal vertigo, bilateral (principal); I10 Essential (primary) hypertension; Z88.2 Allergy status to sulfonamides; Z88.1 Allergy status to other antibiotic agents; Z88.8 Allergy status to other drugs, medicaments and biological substances; Z79.899 Other long term (current) drug therapy
CPT/HCPCS: 36415; 73502; 80053; 83690; 85025; 99284

== ENCOUNTER 2024-07-07 10:29 | Emergency (ER) | payer MEDICARE, OTHER ==
[~2024-07-07] VITALS: Ht 167.6 cm; Wt 68.5 kg
[~2024-07-07 10:29] MED LIST changes: +TRANSDERM-SCOP1 EACH TD
[2024-07-07] MEDS ORDERED: SUCRALFATE1 GM PO (11:02)
[2024-07-07] MEDS ORDERED: DICLOFENAC SODI75 MG PO (11:02)
[2024-07-07 11:12] LABS: BASOPHILS 0.2 % (0-2); EOSINOPHILS 1.1 % (0-6); HEMATOCRIT 25.3 % (35.0-50.0); HEMOGLOBIN 8.6 g/dL (12.0-18.0); LYMPHOCYTES 2.8 % (24-44); MCH 29.6 (27-36); MCHC 33.9 g/dl (30-36); MCV 87.4 fl (81-99); MONOCYTES 8.2 % (0-12); NEUTROPHILS 87.7 % (39-80); PLATELET COUNT 188 K/uL (140-440); RDW 14.1 (10.5-15.0)
[2024-07-07 11:23] LABS: PARTIAL THROMBOPLASTIN TIME 33.9 Sec (22.9-41.3)
[2024-07-07 11:24] LABS: INR 1.13 (0.80-1.30); PROTIME 13.9 Sec (11.2-14.2)
[2024-07-07 11:30] LABS: ALBUMIN 1.8 g/dL (3.4-5.0); ALBUMIN/GLOBULIN RATIO 0.67 (1.1-2.4); ANION GAP 7.9 (7-21); BILIRUBIN, TOTAL 0.5 mg/dL (0.2-1.0); BUN/CREATININE RATIO 24.77 (6.0-28.6); CALCIUM 7.3 mg/dL (8.5-10.1); CREATININE, SERUM 1.13 mg/dL (0.55-1.02); POTASSIUM 3.9 mmol/L (3.5-5.1); PROTEIN, TOTAL 4.5 g/dL (6.4-8.2)
[2024-07-07 11:31] LABS: LACTIC ACID, BLOOD 1.6 mmol/L (0.4-2.0)
[2024-07-07 11:45] LABS: BILIRUBIN, URINE NEGATIVE (negative); BLOOD/HGB, URINE SMALL (Negative); KETONE, URINE TRACE (Negative); LEUK ESTERASE, URINE NEGATIVE (negative); NITRITE, URINE NEGATIVE (negative)
[2024-07-07 11:51] LABS: BACTERIA, URINE 4+ /hpf (negative); CASTS, URINE NONE SEEN \\lpf; COLLECTION TYPE, URINE CATH; CRYSTALS, URINE NONE SEEN (0-1+); EPITHELIAL CELLS, URINE 0 /lpf (0-1+); REFLEX CULTURE, URINE Yes (No)
[2024-07-07] MEDS ORDERED: CEPHALEXIN MONOHYDRATE 500 MG CAP PO ONE (13:15)
[2024-07-07] MEDS ORDERED: SODIUM CHLORIDE 0.9% 1,000 ML IV PRN (14:00)
[2024-07-07] MEDS ORDERED: IBUPROFEN 600 MG TAB PO ONE (14:45)
[2024-07-07] MEDS ORDERED: CEPHALEXIN500 M1 PO (15:04)
[2024-07-07 15:15] VITALS: BP 117/53
--- NOTE | 2024-07-09 07:51 | EKG ---
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
== END 2024-07-07 15:15 | disposition home or self-care (01) ==
LOC: ED 10:29
PROVIDERS: Emergency Medicine
DX: I95.9 Hypotension, unspecified (principal); N39.0 Urinary tract infection, site not specified; I10 Essential (primary) hypertension; Z88.2 Allergy status to sulfonamides; Z88.8 Allergy status to other drugs, medicaments and biological substances; Z79.899 Other long term (current) drug therapy; Z79.2 Long term (current) use of antibiotics
CPT/HCPCS: 36415; 51702; 51798; 70450; 70496; 70498; 71045; 80053; 81001; 83605; 84484; 85025; 85610; 85730; 87088; 93005; 93010; 99285-25; A4311; A9270; J7030; Q9967

== ENCOUNTER 2024-07-13 16:08 | Inpatient (IN) | payer MEDICARE, OTHER ==
[~2024-07-13] VITALS: Ht 167.6 cm; Wt 62.4 kg
[~2024-07-13 16:08] MED LIST changes: +DICLOFENAC SODI75 MG PO
--- OUTSIDE RECORDS SUMMARY | 2024-07-13 16:16 | XMS ---
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 Lukasz has no Care Guidelines for this patient. Dinorah VISIT COUNT (12 MO.) 5 [facility] [place] [facility] TOTAL 5 NOTE: Visits indicate total known visits. ED/C VISIT TRACKING (12 MO.) 07/13/2024 16:[address] [facility] [place] TYPE: Emergency COMPLAINT: - DIARRHEA, WEAKNESS 07/07/2024 10:30 [facility] [place] TYPE: Emergency COMPLAINT: - STROKE SYMPTOMS DIAGNOSES: - Allergy status to other drugs, medicaments and biological substances - Allergy status to sulfonamides - Essential (primary) hypertension - Hypotension, unspecified - termite helper (current) use of antibiotics - Other fatigue - Other longterm (current) drug therapy - Urinary tract infection, site not specified 04/01/2024 09:01 [facility] [place] TYPE: Emergency COMPLAINT: - FALL DIAGNOSES: - Allergy status to other antibiotic agents - Allergy status to other drugs, medicaments and biological substances - Allergy status to sulfonamides - Benign paroxysmal vertigo, bilateral - Benign paroxysmal vertigo, unspecified ear - Dizziness and giddiness - Essential (primary) hypertension - Other salvage determiner (current) drug therapy 09/18/2023 02:37 [facility] [place] TYPE: Emergency COMPLAINT: - FEVER [...] right upper arm, initial encounter - Other longterm (current) drug therapy INPATIENT VISIT TRACKING (12 MO.) 09/18/2023 09:50 [facility] [place] TYPE: Medical Surgical COMPLAINT: - UTI/CELLULITIS/SEPSIS DIAGNOSES: - Acquired absence of both cervix and uterus - Acquired absence of both cervix and uterus - Allergy status to other antibiotic agents - Allergy status to other antibiotic agents - Allergy status to other drugs, medicaments and biological substances - Allergy status to other drugs, medicaments and biological substances - Allergy status to sulfonamides - Allergy status to sulfonamides - Cardiac arrhythmia, unspecified - Cardiac arrhythmia, unspecified - Cellulitis of left lower limb - Cellulitis of left lower limb - Do not resuscitate - Do not resuscitate - Essential (primary) hypertension - Essential (primary) hypertension - Gastro-esophageal reflux disease without esophagitis - Gastro-esophageal reflux disease without esophagitis - Hypo-osmolality and hyponatremia - Hypo-osmolality and hyponatremia - Neuromuscular dysfunction of bladder, unspecified - Neuromuscular dysfunction of bladder, unspecified - Other salvage determiner (current) drug therapy - Other salvage determiner (current) drug therapy - Other specified postprocedural states - Other specified postprocedural states - Pure hypercholesterolemia, unspecified - Pure hypercholesterolemia, unspecified - Sepsis, unspecified organism - Sepsis, unspecified organism - Unspecified fall, initial encounter - Unspecified fall, initial encounter - Urinary tract infection, site not specified [email or web address]
[2024-07-13 16:53] LABS: BASOPHILS 0.6 % (0.1-1.2); EOSINOPHILS 2.2 % (0.7-5.8); HEMATOCRIT 31.9 % (34.1-44.9); HEMOGLOBIN 10.8 g/dL (11.2-15.7); MCH 29.2 PG (25.6-32.2); MCHC 33.9 g/dL (32.2-35.5); MCV 86.2 fL (79.4-94.8); MONOCYTES 14.9 % (4.7-12.5); NEUTROPHILS 67.7 % (34.0-71.1); PLATELET COUNT 260 K/uL (182-369)
[2024-07-13 17:03] LABS: ALBUMIN 2.4 g/dL (3.4-5.0); ALBUMIN/GLOBULIN RATIO 0.65 (1.1-2.4); ANION GAP 14.2 (7-21); BILIRUBIN, TOTAL 0.6 mg/dL (0.2-1.0); BUN/CREATININE RATIO 21.68 (6.0-28.6); CALCIUM 7.9 mg/dL (8.5-10.1); CREATININE, SERUM 0.83 mg/dL (0.55-1.02); POTASSIUM 3.2 mmol/L (3.5-5.1); PROTEIN, TOTAL 6.1 g/dL (6.4-8.2)
[2024-07-13] MEDS ORDERED: ondansetron HCL 4 MG/2 ML VIAL IV ONE (18:15)
[2024-07-13 19:30] LABS: BILIRUBIN, URINE NEGATIVE (negative); BLOOD/HGB, URINE MODERATE (Negative); KETONE, URINE NEGATIVE (Negative); LEUK ESTERASE, URINE TRACE (negative); NITRITE, URINE POSITIVE (negative); PH, URINE 6.5 (5-7)
[2024-07-13 19:46] LABS: CRYSTALS, URINE NONE SEEN (0-1+); EPITHELIAL CELLS, URINE SQUAMOUS 2+ /lpf (0-1+); WHITE BLOOD CELLS, URINE 21-40 /HPF (0-5)
[2024-07-13 19:47] LABS: BACTERIA, URINE 2+ /hpf (negative); CASTS, URINE NONE SEEN \\lpf; COLLECTION TYPE, URINE CLEAN CATCH; REFLEX CULTURE, URINE No (No)
[2024-07-13] MEDS ORDERED: CEFTRIAXONE SODIUM 2 GM in SODIUM CHLORIDE 0.9% 100 ML IV SCH (20:52)
[2024-07-13] MEDS ORDERED: ACETAMINOPHEN 325 MG TAB PO PRN (21:00)
[2024-07-13] MEDS ORDERED: SUCRALFATE 1 GM TAB PO SCH (21:00)
[2024-07-13] MEDS ORDERED: ondansetron HCL 4 MG/2 ML VIAL IV PRN (21:00)
[2024-07-13] MEDS ORDERED: LACTATED RINGER'S 1,000 ML IV SCH (21:00)
[2024-07-13] MEDS ORDERED: PREGABALIN 50 MG CAP PO SCH (21:00)
[2024-07-13] MEDS ORDERED: MORPHINE SULFATE 4 MG/ML VIAL IV PRN (21:30)
[2024-07-13] MEDS ORDERED: MORPHINE SULFATE 4 MG/ML VIAL IV ONE (21:30)
[2024-07-13 21:39] VITALS: BP 175/70
[2024-07-14] VITALS (10 sets, daily range): BP systolic 114–145; BP diastolic 48–88
[2024-07-14] MEDS ORDERED: MELATONIN 3 MG TAB PO PRN (02:15)
[2024-07-14 05:36] LABS: BASOPHILS 0.6 % (0.1-1.2); EOSINOPHILS 4.8 % (0.7-5.8); HEMATOCRIT 27.1 % (34.1-44.9); HEMOGLOBIN 9.1 g/dL (11.2-15.7); MCH 29.2 PG (25.6-32.2); MCHC 33.6 g/dL (32.2-35.5); MCV 86.9 fL (79.4-94.8); NEUTROPHILS 61.3 % (34.0-71.1); PLATELET COUNT 212 K/uL (182-369); RBC 3.12 M/uL (3.93-5.22)
[2024-07-14 06:02] LABS: ALBUMIN/GLOBULIN RATIO 0.63 (1.1-2.4); ANION GAP 11.7 (7-21); BILIRUBIN, TOTAL 0.3 mg/dL (0.2-1.0); CALCIUM 7.5 mg/dL (8.5-10.1); CREATININE, SERUM 0.8 mg/dL (0.55-1.02); MAGNESIUM 1.8 mg/dL (1.8-2.4); POTASSIUM 2.7 mmol/L (3.5-5.1); PROTEIN, TOTAL 5.2 g/dL (6.4-8.2)
[2024-07-14] MEDS ORDERED: POTASSIUM CHLORIDE 40 MEQ,LIDOCAINE HCL 1% 40 MG in DEXTROSE 5% 250 ML IV ONE (07:30)
[2024-07-14] MEDS ORDERED: FUROSEMIDE 20 MG TAB PO SCH (09:00)
[2024-07-14] MEDS ORDERED: LOSARTAN POTASSIUM 50 MG TAB PO SCH (09:00)
[2024-07-14] MEDS ORDERED: PANTOPRAZOLE SODIUM 40 MG TABEC PO SCH ×2 (09:00→10:38)
[2024-07-14] MEDS ORDERED: ENOXAPARIN SODIUM 40 MG/0.4 ML SYR SUB-Q SCH (10:29)
[2024-07-14] MEDS ORDERED: ondansetron HCL 4 MG/2 ML VIAL IV PRN (10:30)
[2024-07-14] MEDS ORDERED: ACETAMINOPHEN 325 MG TAB PO PRN (10:30)
[2024-07-14] MEDS ORDERED: SODIUM CHLORIDE 0.9% 1,000 ML IV SCH (10:30)
[2024-07-14] MEDS ORDERED: ACETAMINOPHEN-1 EAC1 PO (11:21)
[2024-07-14] MEDS ORDERED: PREGABALIN75 MG PO (11:22)
[2024-07-14] MEDS ORDERED: ALENDRONATE SOD70 MG PO (11:23)
[2024-07-14] MEDS ORDERED: PHARMACY RENAL DOSE ADJUSTMENT 1 DOSE MISC PO SCH (12:00)
[2024-07-14] MEDS ORDERED: FAMOTIDINE20 MG PO (12:49)
[2024-07-14] MEDS ORDERED: SUCRALFATE 1 GM TAB PO SCH (21:00)
[2024-07-14] MEDS ORDERED: ATORVASTATIN 40 MG TAB PO SCH (21:00)
[2024-07-14] MEDS ORDERED: PREGABALIN 25 MG CAP PO SCH (21:00)
[2024-07-14] MEDS ORDERED: PREGABALIN 75 MG CAP PO SCH (21:00)
[2024-07-14] MEDS ORDERED: MORPHINE SULFATE 4 MG/ML VIAL IV PRN (21:30)
[2024-07-15 05:25] LABS: BASOPHILS 0.4 % (0.1-1.2); EOSINOPHILS 4.3 % (0.7-5.8); HEMATOCRIT 26.9 % (34.1-44.9); HEMOGLOBIN 8.9 g/dL (11.2-15.7); LYMPHOCYTES 20.2 % (19.3-51.7); MCH 29.2 PG (25.6-32.2); MCHC 33.1 g/dL (32.2-35.5); MCV 88.2 fL (79.4-94.8); NEUTROPHILS 63.7 % (34.0-71.1); PLATELET COUNT 183 K/uL (182-369); RBC 3.05 M/uL (3.93-5.22)
[2024-07-15 05:40] LABS: ALBUMIN 1.8 g/dL (3.4-5.0); ALBUMIN/GLOBULIN RATIO 0.6 (1.1-2.4); BILIRUBIN, TOTAL 0.3 mg/dL (0.2-1.0); BUN/CREATININE RATIO 14.75 (6.0-28.6); CALCIUM 7.4 mg/dL (8.5-10.1); CREATININE, SERUM 0.61 mg/dL (0.55-1.02); MAGNESIUM 1.3 mg/dL (1.8-2.4); PHOSPHORUS, INORGANIC 2.7 mg/dL (2.5-4.9); PROTEIN, TOTAL 4.8 g/dL (6.4-8.2)
[2024-07-15 06:03] VITALS: BP 128/61
[2024-07-15] MEDS ORDERED: Calcium Gluconate in NS 1,000 MG/50 ML BAG IV ONE (07:45)
[2024-07-15] MEDS ORDERED: POTASSIUM CHLORIDE 40 MEQ,LIDOCAINE HCL 1% 40 MG in DEXTROSE 5% 250 ML IV ONE ×2 (09:00→21:30)
[2024-07-15] MEDS ORDERED: MAGNESIUM SULFATE 2 GM/50 ML BAG IV SCH (09:00)
[2024-07-15] MEDS ORDERED: CEFTRIAXONE SODIUM 2 GM in SODIUM CHLORIDE 0.9% 100 ML IV SCH (09:00)
[2024-07-15 09:08] VITALS: BP 128/53
[2024-07-15 10:00] VITALS: BP 128/53
[2024-07-15 14:00] VITALS: BP 128/53
[2024-07-15 18:10] VITALS: BP 169/67
[2024-07-15] MEDS ORDERED: LOSARTAN POTASSIUM 50 MG TAB PO SCH (18:15)
[2024-07-15 20:20] VITALS: BP 156/61
[2024-07-15] MEDS ORDERED: PROCHLORPERAZINE EDISYLATE 10 MG/2 ML VIAL IV PRN (20:45)
[2024-07-15 20:57] LABS: ANION GAP 11.1 (7-21); BUN/CREATININE RATIO 9.09 (6.0-28.6); CALCIUM 7.9 mg/dL (8.5-10.1); CREATININE, SERUM 0.55 mg/dL (0.55-1.02); POTASSIUM 3.1 mmol/L (3.5-5.1)
[2024-07-15] MEDS ORDERED: LIDOCAINE HCL 1% XX SCH (22:00)
[2024-07-15] MEDS ORDERED: POTASSIUM CHLORIDE 10 MEQ/100 ML BAG IV SCH (22:00)
[2024-07-16] VITALS (11 sets, daily range): BP systolic 138–163; BP diastolic 55–72
[2024-07-16 05:25] LABS: BASOPHILS 0.4 % (0.1-1.2); EOSINOPHILS 2.9 % (0.7-5.8); HEMATOCRIT 27.9 % (34.1-44.9); HEMOGLOBIN 9.4 g/dL (11.2-15.7); LYMPHOCYTES 15.9 % (19.3-51.7); MCH 29.6 PG (25.6-32.2); MCHC 33.7 g/dL (32.2-35.5); MCV 87.7 fL (79.4-94.8); MONOCYTES 8.9 % (4.7-12.5); NEUTROPHILS 71.2 % (34.0-71.1); PLATELET COUNT 202 K/uL (182-369); RBC 3.18 M/uL (3.93-5.22)
[2024-07-16 05:41] LABS: ALBUMIN 1.8 g/dL (3.4-5.0); ALBUMIN/GLOBULIN RATIO 0.56 (1.1-2.4); ANION GAP 9.6 (7-21); BILIRUBIN, TOTAL 0.4 mg/dL (0.2-1.0); BUN/CREATININE RATIO 11.86 (6.0-28.6); CALCIUM 7.7 mg/dL (8.5-10.1); CREATININE, SERUM 0.59 mg/dL (0.55-1.02); MAGNESIUM 1.7 mg/dL (1.8-2.4); POTASSIUM 3.6 mmol/L (3.5-5.1)
[2024-07-16] MEDS ORDERED: metroNIDAZOLE 250 MG TAB PO SCH (09:00)
[2024-07-17 05:42] LABS: BASOPHILS 0.2 % (0.1-1.2); EOSINOPHILS 12.4 % (0.7-5.8); HEMATOCRIT 28.1 % (34.1-44.9); HEMOGLOBIN 9.5 g/dL (11.2-15.7); LYMPHOCYTES 8.2 % (19.3-51.7); MCH 29.4 PG (25.6-32.2); MCHC 33.8 g/dL (32.2-35.5); MONOCYTES 4.9 % (4.7-12.5); NEUTROPHILS 73.9 % (34.0-71.1); PLATELET COUNT 212 K/uL (182-369); RBC 3.23 M/uL (3.93-5.22)
[2024-07-17 05:44] VITALS: BP 126/56
[2024-07-17 05:46] VITALS: BP 126/56
[2024-07-17 05:57] LABS: ALBUMIN 1.6 g/dL (3.4-5.0); ALBUMIN/GLOBULIN RATIO 0.52 (1.1-2.4); ANION GAP 8.5 (7-21); BILIRUBIN, TOTAL 0.3 mg/dL (0.2-1.0); BUN/CREATININE RATIO 11.29 (6.0-28.6); CALCIUM 7.8 mg/dL (8.5-10.1); CREATININE, SERUM 0.62 mg/dL (0.55-1.02); MAGNESIUM 1.4 mg/dL (1.8-2.4); POTASSIUM 3.5 mmol/L (3.5-5.1); PROTEIN, TOTAL 4.7 g/dL (6.4-8.2)
[2024-07-17] MEDS ORDERED: MAGNESIUM SULFATE 2 GM/50 ML BAG IV ONE (09:00)
[2024-07-17 09:27] VITALS: BP 154/54
[2024-07-17 09:28] VITALS: BP 154/54
[2024-07-17] MEDS ORDERED: METRONIDAZOLE250 MG PO (11:02)
[2024-07-17] MEDS ORDERED: CEFUROXIME500 MG PO (11:03)
[2024-07-17 12:08] VITALS: BP 139/66
--- NOTE | 2024-07-17 20:20 | EKG ---
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
== END 2024-07-17 12:10 | disposition home or self-care (01) | DRG 690 ==
LOC: ED 16:08 → MS 16:11
PROVIDERS: Emergency Medicine; Family Medicine; Student in an Organized Health Care Education/Training Program; ADMIT Family Medicine; ATTEND Family Medicine
PROC: 0T9B70Z Drainage of Bladder with Drainage Device, Via Natural or Artificial Opening (ICD-10-PCS; principal; 2024-07-15)
DX: N39.0 Urinary tract infection, site not specified (principal); A08.4 Viral intestinal infection, unspecified; K21.9 Gastro-esophageal reflux disease without esophagitis; I10 Essential (primary) hypertension; Z90.710 Acquired absence of both cervix and uterus; Z98.890 Other specified postprocedural states; R19.7 Diarrhea, unspecified; N31.9 Neuromuscular dysfunction of bladder, unspecified; E78.00 Pure hypercholesterolemia, unspecified; B96.1 Klebsiella pneumoniae [K. pneumoniae] as the cause of diseases classified elsewhere; Z66 Do not resuscitate; E87.6 Hypokalemia; D64.9 Anemia, unspecified; Z88.2 Allergy status to sulfonamides; Z88.8 Allergy status to other drugs, medicaments and biological substances; E83.42 Hypomagnesemia
CPT/HCPCS: 36415; 74177; 80048; 80053; 81001; 83735; 84100; 84484; 85025; 87045; 87046; 93005; 93010; 99285-25; A9270; J0696; J0780; J1650; J2270; J2405; J3475; J3480; J3490; J7030; J7060; J7121; Q9967

== ENCOUNTER 2024-08-20 23:12 | Emergency (ER) | payer MEDICARE, OTHER ==
[~2024-08-20] VITALS: Ht 167.6 cm; Wt 65.5 kg
[~2024-08-20 23:12] MED LIST changes: +ALENDRONATE SOD70 MG PO; +CEFUROXIME500 MG PO; +FAMOTIDINE20 MG PO; +METRONIDAZOLE250 MG PO; +PREGABALIN75 MG PO
[2024-08-20 23:46] LABS: BASOPHILS 0.5 % (0.1-1.2); EOSINOPHILS 11.1 % (0.7-5.8); LYMPHOCYTES 12.2 % (19.3-51.7); MCH 28.3 PG (25.6-32.2); MCHC 32.8 g/dL (32.2-35.5); MCV 86.4 fL (79.4-94.8); MONOCYTES 8.0 % (4.7-12.5); NEUTROPHILS 67.9 % (34.0-71.1); RBC 3.46 M/uL (3.93-5.22)
[2024-08-20 23:58] LABS: ALT (SGPT) 29.0 U/L (14-59); AST (SGOT) 19.0 U/L (15-37); GLOMERULAR FILTRATION RATE,EST 61.0 mL/min (>60); PROTEIN, TOTAL 6.9 g/dL (6.4-8.2); UREA NITROGEN 16.0 mg/dL (7-18)
[2024-08-21] MEDS ORDERED: HYDROCORTISONE ACETATE 25 MG SUPP PR ONE (00:45)
[2024-08-21] MEDS ORDERED: SODIUM CHLORIDE 0.9% 1,000 ML IV PRN (00:45)
[2024-08-21 01:06] LABS: BLOOD/HGB, URINE SMALL (Negative); KETONE, URINE NEGATIVE (Negative); LEUK ESTERASE, URINE MODERATE (negative); NITRITE, URINE POSITIVE (negative)
[2024-08-21 01:12] LABS: BACTERIA, URINE 3+ /hpf (negative); CASTS, URINE NONE SEEN \\lpf; CRYSTALS, URINE NONE SEEN (0-1+); EPITHELIAL CELLS, URINE SQUAMOUS 1+ /lpf (0-1+); REFLEX CULTURE, URINE Yes (No)
[2024-08-21] MEDS ORDERED: AMOX TR-K CLV1 EAC1 PO (02:50)
[2024-08-21] MEDS ORDERED: ANUCORT-HC25 MG PR (02:54)
[2024-08-21] MEDS ORDERED: AMOXICILLIN/CLAVULANATE K 875 MG HOME.PACK PO ONE (03:00)
[2024-08-21 03:05] VITALS: BP 159/73
== END 2024-08-21 03:05 | disposition home or self-care (01) ==
LOC: ED 23:12
PROVIDERS: Internal Medicine
DX: N39.0 Urinary tract infection, site not specified (principal); K64.8 Other hemorrhoids; K21.9 Gastro-esophageal reflux disease without esophagitis; Z79.899 Other long term (current) drug therapy; Z88.2 Allergy status to sulfonamides; Z88.1 Allergy status to other antibiotic agents; Z88.8 Allergy status to other drugs, medicaments and biological substances
CPT/HCPCS: 36415; 51701; 51798; 80053; 81001; 83690; 84484; 85025; 87088; 99284-25; J0696; J7030

== ENCOUNTER 2024-11-07 08:58 | Emergency (ER) | payer MEDICARE, OTHER ==
[~2024-11-07] VITALS: Ht 167.6 cm; Wt 65.5 kg
[~2024-11-07 08:58] MED LIST changes: +ANUCORT-HC25 MG PR
[2024-11-07] MEDS ORDERED: SODIUM CHLORIDE 0.9% 1,000 ML IV ONE (10:00)
[2024-11-07] MEDS ORDERED: HYDROmorphone HCL 1 MG/ML SYR IV PRN (10:00)
[2024-11-07 10:23] LABS: BASOPHILS 0.4 % (0.1-1.2); EOSINOPHILS 0.9 % (0.7-5.8); LYMPHOCYTES 7.9 % (19.3-51.7); MCH 26.2 PG (25.6-32.2); MCHC 33.1 g/dL (32.2-35.5); MCV 79.1 fL (79.4-94.8); MONOCYTES 7.3 % (4.7-12.5); NEUTROPHILS 83.4 % (34.0-71.1); RBC 4.16 M/uL (3.93-5.22)
[2024-11-07 10:40] LABS: ALT (SGPT) 21.0 U/L (14-59); AST (SGOT) 18.0 U/L (15-37); GLOMERULAR FILTRATION RATE,EST 77.0 mL/min (>60); PROTEIN, TOTAL 7.5 g/dL (6.4-8.2); UREA NITROGEN 8.0 mg/dL (7-18)
[2024-11-07] MEDS ORDERED: OLANZapine 10 MG TABDIS PO ONE (11:15)
[2024-11-07] MEDS ORDERED: SODIUM CHLORIDE 0.9% 1,000 ML IV PRN (12:00)
[2024-11-07] MEDS ORDERED: ACETAMINOPHEN 500 MG TAB PO ONE (12:15)
[2024-11-07 12:21] LABS: BLOOD/HGB, URINE NEGATIVE (Negative); KETONE, URINE NEGATIVE (Negative); LEUK ESTERASE, URINE NEGATIVE (negative); NITRITE, URINE NEGATIVE (negative)
[2024-11-07] MEDS ORDERED: VANCOMYCIN HCL 1 GM in DEXTROSE 5% 250 ML IV ONE (13:30)
[2024-11-07 15:31] VITALS: BP 169/75
== END 2024-11-07 15:35 | disposition home or self-care (01) ==
LOC: ED 08:58
PROVIDERS: Emergency Medicine
DX: R10.10 Upper abdominal pain, unspecified (principal); I10 Essential (primary) hypertension; Z88.2 Allergy status to sulfonamides; Z88.1 Allergy status to other antibiotic agents; Z88.8 Allergy status to other drugs, medicaments and biological substances; Z79.899 Other long term (current) drug therapy
CPT/HCPCS: 36415; 74177; 80053; 81003; 83690; 85025; 96374; 96375; 99284-25; A9270; J1171; J2405; J3373; J7030; J7060; Q9967

== ENCOUNTER 2024-11-25 10:09 | Inpatient (IN) | payer MEDICARE, OTHER ==
[~2024-11-25] VITALS: Ht 167.6 cm; Wt 62.6 kg
[~2024-11-25 10:09] MED LIST changes: -PANTOPRAZOLE SO40 MG PO
--- OUTSIDE RECORDS SUMMARY | 2024-11-25 10:16 | XMS ---
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 Lukasz has no Care Guidelines for this patient. Dinorah VISIT COUNT (12 MO.) [address] [facility] [address] [facility] [place] TOTAL 6 NOTE: Visits indicate total known visits. ED/WW [facility] VISIT TRACKING (12 MO.) 11/25/2024 10:[address] [facility] [place] TYPE: Emergency COMPLAINT: - LEG PAIN 11/07/2024 08:58 [facility] [place] TYPE: Emergency COMPLAINT: - MEDICATION REACTION DIAGNOSES: - Allergy status to other antibiotic agents - Allergy status to other drugs, medicaments and biological substances - Allergy status to sulfonamides - Essential (primary) hypertension - Other termination clerk (current) drug therapy - Upper abdominal pain, unspecified 08/20/2024 23:13 [facility] [place] TYPE: Emergency COMPLAINT: - ABDOMINAL PAIN DIAGNOSES: - Allergy status to other antibiotic agents - Allergy status to other drugs, medicaments and biological substances - Allergy status to sulfonamides - Gastro-esophageal reflux disease without esophagitis - Other hemorrhoids - Other termination clerk (current) drug therapy - Other specified diseases of anus and rectum - Urinary tract infection, site not specified 07/13/2024 16:10 [facility] [place] TYPE: Emergency COMPLAINT: - DIARRHEA, WEAKNESS 07/07/2024 10:30 [facility] [place] TYPE: Emergency COMPLAINT: - STROKE SYMPTOMS DIAGNOSES: - Allergy status to other drugs, medicaments and biological substances - Allergy status to sulfonamides - Essential (primary) hypertension - Hypotension, unspecified - meterman (current) use of antibiotics - Other fatigue - Other termination clerk (current) drug therapy - Urinary tract infection, [...] giddiness - Essential (primary) hypertension - Other termination clerk (current) drug therapy INPATIENT VISIT TRACKING (12 MO.) 07/14/2024 10:30 [facility] [place] TYPE: Medical Surgical COMPLAINT: - UTI OUPT TX FAILURE,ANTIBIOTIC ASSOCIATED DIARRHEA DIAGNOSES: - Acquired absence of both cervix and uterus - Acquired absence of both cervix and uterus - Allergy status to other drugs, medicaments and biological substances - Allergy status to other drugs, medicaments and biological substances - Allergy status to sulfonamides - Allergy status to sulfonamides - Anemia, unspecified - Anemia, unspecified - Diarrhea, unspecified - Diarrhea, unspecified - Do not resuscitate - Do not resuscitate - Essential (primary) hypertension - Essential (primary) hypertension - Gastro-esophageal reflux disease without esophagitis - Gastro-esophageal reflux disease without esophagitis - Hypokalemia - Hypokalemia - Hypomagnesemia - Hypomagnesemia - Klebsiella pneumoniae [K. pneumoniae] as the cause of diseases classified elsewhere - Klebsiella pneumoniae [K. pneumoniae] as the cause of diseases classified elsewhere - Neuromuscular dysfunction of bladder, unspecified - Neuromuscular dysfunction of bladder, unspecified - Other specified postprocedural states - Other specified postprocedural states - Pure hypercholesterolemia, unspecified - Pure hypercholesterolemia, unspecified - Urinary tract infection, site not specified - Urinary tract infection, site not specified - Viral intestinal infection, unspecified [email or web address]
[2024-11-25] MEDS ORDERED: ACETAMINOPHEN 500 MG TAB PO ONE (10:30)
[2024-11-25 11:21] LABS: BLOOD/HGB, URINE TRACE-I (Negative); KETONE, URINE NEGATIVE (Negative); LEUK ESTERASE, URINE SMALL (negative); NITRITE, URINE POSITIVE (negative)
[2024-11-25 11:29] LABS: BACTERIA, URINE 1+ /hpf (negative); CASTS, URINE NONE SEEN \\lpf; CRYSTALS, URINE NONE SEEN (0-1+); EPITHELIAL CELLS, URINE SQUAMOUS 3+ /lpf (0-1+)
[2024-11-25 11:30] LABS: REFLEX CULTURE, URINE No (No)
[2024-11-25 11:41] LABS: BASOPHILS 0.5 % (0.1-1.2); EOSINOPHILS 0.3 % (0.7-5.8); LYMPHOCYTES 5.8 % (19.3-51.7); MCH 25.9 PG (25.6-32.2); MCHC 32.1 g/dL (32.2-35.5); MCV 80.9 fL (79.4-94.8); MONOCYTES 4.3 % (4.7-12.5); NEUTROPHILS 88.7 % (34.0-71.1); RBC 3.97 M/uL (3.93-5.22)
[2024-11-25] MEDS ORDERED: TRAMADOL HCL50 MG PO (15:15)
[2024-11-25] MEDS ORDERED: CALCITONIN-SAL3.7 ML NAS (15:19)
[2024-11-25] MEDS ORDERED: LACTULOSE10 GM PO (15:23)
[2024-11-25] MEDS ORDERED: CITALOPRAM HBR10 MG PO (15:24)
[2024-11-25] MEDS ORDERED: ESCITALOPRAM OX10 MG PO (15:26)
[2024-11-25] MEDS ORDERED: OXYCODONE/APAP 5/325 TAB PO ONE (15:45)
[2024-11-25] MEDS ORDERED: SODIUM CHLORIDE 0.9% 1,000 ML IV SCH (16:45)
[2024-11-25] MEDS ORDERED: ACETAMINOPHEN 325 MG TAB PO PRN (16:45)
[2024-11-25] MEDS ORDERED: PANTOPRAZOLE SODIUM 40 MG TABEC PO SCH (16:55)
[2024-11-25 16:56] LABS: ALT (SGPT) 23.0 U/L (14-59); AST (SGOT) 15.0 U/L (15-37); GLOMERULAR FILTRATION RATE,EST 68.0 mL/min (>60); PROTEIN, TOTAL 6.4 g/dL (6.4-8.2); UREA NITROGEN 13.0 mg/dL (7-18)
[2024-11-25] MEDS ORDERED: OXYCODONE HCL 5 MG TAB PO PRN (17:30)
[2024-11-25 17:34] LABS: BLOOD/HGB, URINE NEGATIVE (Negative); KETONE, URINE NEGATIVE (Negative); LEUK ESTERASE, URINE NEGATIVE (negative); NITRITE, URINE POSITIVE (negative)
[2024-11-25 17:41] LABS: BACTERIA, URINE 2+ /hpf (negative); CASTS, URINE NONE SEEN \\lpf; CRYSTALS, URINE NONE SEEN (0-1+); EPITHELIAL CELLS, URINE SQUAMOUS 1+ /lpf (0-1+); REFLEX CULTURE, URINE Yes (No)
--- NOTE | 2024-11-25 17:50 | NUR ---
PT TO FLOOR PER STRETCHER FROM ER. PT ACCOMPANIED BY HER FRIEND YAO. URINE SAMPLE SENT FROM [facility] ORDERED. IV TO L) UPPER ARM FLUSHED AND ASSESSED. PT'S BRIEF CHANGED AND PT CLEANED D/T PT HAVING A BM SMEAR. PT STATED THAT SHE IS INCONTINENT AT TIMES. CALL LIGHT WITHIN REACH. ROOM ORIENTATION COMPLETE.
[2024-11-25 18:04] VITALS: BP 156/60
--- NOTE | 2024-11-25 19:10 | NUR ---
REPORT RECEIVED FROM BRIAN ARREOLA. pt RESTING IN THE BED. BOARD UPDATED. pt DENIES ANY OTHER NEEDS AT THIS TIME. CALL LIGHT WITHIN REACH.
[2024-11-25] MEDS ORDERED: AMOXICILLIN/CLAVULANATE K 875 MG TAB PO SCH (19:30)
[2024-11-25] MEDS ORDERED: ATORVASTATIN 40 MG TAB PO SCH (21:00)
[2024-11-25] MEDS ORDERED: SUCRALFATE 1 GM TAB PO SCH (21:00)
[2024-11-25] MEDS ORDERED: MELATONIN 3 MG TAB PO PRN (21:00)
[2024-11-25 21:31] VITALS: BP 96/71
[2024-11-25 21:34] VITALS: BP 96/71
--- NOTE | 2024-11-25 21:40 | NUR ---
ASSESSMENT AND VITAL SIGNS DONE. SCHEDULED MEDS ADMINISTERED. LABS DRAWN. pt LEGS ELEVATED ON A PILLOW. IV ASSESSED, WNL. pt DENIES ANY OTHER NEEDS AT THIS TIME. CALL LIGHT WITHIN REACH. pt STATES SHE HAS 2/10 PAIN.
[2024-11-25 22:06] LABS: GLOMERULAR FILTRATION RATE,EST 83.0 mL/min (>60); UREA NITROGEN 11.0 mg/dL (7-18)
--- NOTE | 2024-11-25 22:30 | NUR ---
pt C/O 03/31 PAIN. PRN PAIN MEDS ADMINISTERED. pt WENT TO CT. MD AMBROSE CHANGED FLUID RATE. pt BACK FROM CT. pt DENIES ANY OTHER NEEDS AT THIS TIME. CALL LIGHT WITHIN REACH. pt REQUESTED CRACKERS AND WATER REFRESHED. IVF RESTARTED.
[2024-11-26] VITALS (11 sets, daily range): BP systolic 125–160; BP diastolic 53–65
--- NOTE | 2024-11-26 00:14 | NUR ---
pt RESTING IN THE BED WITH EYES CLOSED. RR EVEN AND UNLABORED. CALL LIGHT WITHIN REACH.
--- NOTE | 2024-11-26 02:20 | NUR ---
pt RESTING IN THE BED WITH EYES CLOSED. THIS RN AND BARKING MACHINE FEEDER IN RM TO DO VITAL SIGNS. pt CARTER EMPTIED. pt DENIES ANY NEEDS AT THIS TIME. CALL LIGHT WITHIN REACH.
--- NOTE | 2024-11-26 03:32 | NUR ---
pt RESTING IN THE BEDS WITH EYES CLOSED. RR EVEN AND UNLABORED. CALL LIGHT WITHIN REACH.
[2024-11-26 05:31] LABS: BASOPHILS 1.1 % (0.1-1.2); EOSINOPHILS 7.9 % (0.7-5.8); LYMPHOCYTES 13.4 % (19.3-51.7); MCH 25.7 PG (25.6-32.2); MCHC 32.2 g/dL (32.2-35.5); MCV 79.6 fL (79.4-94.8); MONOCYTES 7.9 % (4.7-12.5); NEUTROPHILS 69.4 % (34.0-71.1); RBC 3.39 M/uL (3.93-5.22)
[2024-11-26 05:52] LABS: ALT (SGPT) 19.0 U/L (14-59); AST (SGOT) 14.0 U/L (15-37); GLOMERULAR FILTRATION RATE,EST 86.0 mL/min (>60); PHOSPHORUS, INORGANIC 3.2 mg/dL (2.5-4.9); PROTEIN, TOTAL 5.6 g/dL (6.4-8.2); UREA NITROGEN 9.0 mg/dL (7-18)
--- NOTE | 2024-11-26 05:55 | NUR ---
IN RM TO DO VITAL SIGNS. pt IV PAUSED AND LABS DRAWN FROM LINE. pt PUT HEARING AIDS BACK IN. pt DENIES ANY OTHER NEEDS AT THIS TIME. CALL LIGHT WITHIN REACH. IVF RESTARTED.
--- NOTE | 2024-11-26 07:28 | NUR ---
REPORT RECIEVED FROM ELBA HELLER. PT IS LAYING IN BED WITH EYES CLOSED. NASAL CANNULA SECURELY ON FACE. RR EVEN AND UNLABORED. CALL LIGHT IS WITHIN REACH.
--- NOTE | 2024-11-26 07:30 | NUR ---
PATIENT IN BED AT THIS TIME. JAVASCRIPT ENGINEER CHARTED HOURLY ROUNDS. CALL LIGHT WITHIN REACH, NO FURTHER NEEDS.
--- NOTE | 2024-11-26 07:45 | NUR ---
Spoke with Amena. She is her pleasant self. She states she has a nondisplaced knee fracture. Her concern is getting into apartment and up her multiple steps. Pts first choice is to go home. She discussed placement to [facility] as she has friends there. She would also consider a SNF. She does not want to to [facility]. I told her I will give her a personal choice list. She wants to speak with Dr. Don first as she feels this will determine where she will go. I left to go call Dr. Don at he is at the nurses station. I updated him. He went to her room and let her know, she does not have a knee fx. It is the same has it has been for several years. She does not need a SNF as there is nothing to heal. Pt is delighted and wants to go home. They discussed a neoprene knee brace and her son can purchase. Dr. Mosquera present and would like her to stay today as her sodium is low and she has had dizzy spells. Pt agrees. Dr. Don also told her to call EMS for a lift assist into her home when she is discharged. He also reminded her he has asked her to move to a different apartment for several years. Pt is not in agreement. I was able to finish my assessment. Pt has a walker at home. He friend lives in the building and they check on each other daily. She will work with PT on stairs. Pt denies any financial for safety concerns. Plans on dc to home when medically ready.
--- NOTE | 2024-11-26 08:11 | NUR ---
UR CLINICAL REVIEW: 2 MN FOR VERSALUS-PER ACID POLYMERIZATION OPERATOR MEETS INPT FOR UTI/FIBULA FRACTURE WITH NEED FOR ABX, PAIN CONTROL AND PT/OT. MEDICARE INPT 11/25/24 @ 0247 ORDER MATCHES REG NO AUTH REQUIRED PER MEDICARE GUIDELINES DISCHARGE DISPO PENDING. PATIENT HAS DECLINED SNF.
[2024-11-26] MEDS ORDERED: ENOXAPARIN SODIUM 40 MG/0.4 ML SYR SUB-Q SCH (09:00)
[2024-11-26] MEDS ORDERED: LACTULOSE 20 GM/30 ML CUP PO SCH (09:00)
[2024-11-26] MEDS ORDERED: FLU (Fluad) 2025-26 (65UP)/MF59C/PF 45 MCG/0.5 ML IM SCH (09:37)
--- NOTE | 2024-11-26 10:03 | NUR ---
PATIENT IN BED AT THIS TIME. TRANSMISSION DESIGN ENGINEER CHARTED VITALS AND I&O'S. CALL LIGHT WITHIN REACH, NO FURTHER NEEDS.
--- NOTE | 2024-11-26 10:11 | NUR ---
DR AMBROSE NOTIFIED OF PT C/O FEELING "FULL IN MY HEAD". PT CURRENTLY SITTING UP IN THE CHAIR WITH LEGS ELEVATED. PT DENIES ANY OTHER S/S, SPECIFICALLY DENIES DIZZINESS OR LIGHTHEADEDNESS. PT STATES THAT THESE EPISODES TEND TO LAST FOR A FEW HOURS AND THEN GO AWAY. DR AMBROSE STATED THAT HE IS AWARE OF PT HAVING THESE EPISODES. NO ORDERS RECEIVED AT THIS TIME.
--- NOTE | 2024-11-26 10:27 | NUR ---
PT STATED THAT THE FULL FEELING IN HER HEAD HAS STOPPED. PT SITTING UP IN CHAIR. STATES SHE IS PASSING GAS. THIS RN ASKED PT TO PLEASE LET STAFF KNOW IF SHE STARTS FEELING DIZZY OR LIGHTHEADED. NO REQUESTS AT THIS TIME. CALLL LIGHT WITHIN REACH.
--- NOTE | 2024-11-26 10:35 | NUR ---
PATIENT IN CHAIR AT THIS TIME. STRIPPER SHOVEL OPERATOR CHANGED PATIENTS LINENS. CALL LIGHT WITHIN REACH, NO FURTHER NEEDS.
--- NOTE | 2024-11-26 11:32 | NUR ---
PT AMBULATING IN WEBER WITH PHYSICAL THERAPY AT THIS TIME.
[2024-11-26] MEDS ORDERED: PHARMACY RENAL DOSE ADJUSTMENT 1 DOSE MISC PO SCH (12:00)
--- NOTE | 2024-11-26 12:58 | NUR ---
ORTHOSTATICS COMPLETE. PT DENIED DIZZINESS OR LIGHTHEADEDNESS. HOWEVER, PT DID STATE THAT WHEN SHE STANDS UP QUICKLY AT HOME SHE "OCCASIONALLY GETS DIZZY AND FALLS BACK IN HER CHAIR." ENCOURAGED PT TO CHANGE POSITIONS SLOWLY OVER SEVERAL MINUTES TO ENSURE BALANCE, AND ALSO TO USE HER WALKER WHEN GETTING UP AT HOME. PT WAS RECEPTIVE.
--- NOTE | 2024-11-26 13:49 | NUR ---
PATIENT IN BED AT THIS TIME. BULK FLUIDS HANDLER ASSISTED PATIENT TO BED FROM CHAIR. CALL LIGHT WITHIN REACH, NO FURTHER NEEDS.
--- NOTE | 2024-11-26 14:13 | NUR ---
PT RESTING IN BED WITH EYES OPEN, DENIES ANY NEEDS AT THIS TIME. CALL LIGHT AND PERSONAL BELONGINGS ARE WITHIN REACH.
[2024-11-26] MEDS ORDERED: SENNOSIDES/DOCUSATE 1 EA TAB PO SCH (14:14)
--- NOTE | 2024-11-26 14:40 | NUR ---
IN ROOM WITH ELBA TORRES. PT STATES SHE MAY HAVE PASSED A SMALL AMOUNT OF STOOL IN BRIEF. ELBA TORRES, EDUCATED PT ON SKIN INTEGRITY AND THE IMPORTANCE OF NOTIFYING STAFF IMMEDIATELY WHEN THAT HAPPENS. PT HAD SMEAR OF STOOL IN BRIEF. BRIEF CHANGED AND CARTER/PERICARE COMPLETE AT THIS TIME. ELBA TORRES, EDUCATED PT ON THE IMPORTANCE OF STAYING HYDRATED AND DISCUSSED SOME STRATEGIES TO HELP PT BE MORE SUCCESSFUL WITH HER HYDRATION AT HOME. PT RECEPTIVE AND VERBALIZED UNDERSTANDING. PT STATED NO FURTHER NEEDS. CALL LIGHT AND PERSONAL BELONGINGS ARE WITHIN REACH.
--- NOTE | 2024-11-26 17:33 | NUR ---
PT RESTING IN BED WITH EYES CLOSED. HOB IS ELEVATED, RR EVEN ADN UNLABORED. CALL LIGHT AND PERSONAL BELONGINGS ARE WITHIN REACH.
--- NOTE | 2024-11-26 18:22 | NUR ---
PATIENT IN BED AT THIS TIME. DATA PROCESSING CLERK CHARTED VITALS AND I&O'S. DATA PROCESSING CLERK ASSISTED PATIENT WITH BED BATH AND BROOK CARE. FILOMENA LIGHT WITHIN REACH, NO FURTHER NEEDS.
--- NOTE | 2024-11-26 18:45 | NUR ---
PT LAYING IN BED WITH EYES OPEN. RR EVEN AND UNLABORED. DENIES ANY NEEDS. CALL LIGHT AND PERSONAL BELONGINGS WITHIN REACH.
--- NOTE | 2024-11-26 19:05 | NUR ---
REPORT RECEIVED FROM BRENDA ARREOLA. pt RESTING IN THE BED. BOARD UPDATED. pt DENIES ANY OTHER NEEDS AT THIS TIME. CALL LIGHT WITHIN REACH.
--- NOTE | 2024-11-26 20:40 | NUR ---
ASSESSMENT AND VITAL SIGNS DONE. CARTER CARE DONE. pt C/O 08/28 PAIN. PRN PAIN MEDS ADMINISTERED. SCHEDULED MEDS ADMINISTERED. pt LEGS ELEVATED ON PILLOWS. pt DENIES ANY OTHER NEEDS AT THIS TIME. IV ASSESSED, WNL. CALL LIGHT WITHIN REACH.
--- NOTE | 2024-11-26 23:08 | NUR ---
pt RESTING IN THE BED WITH EYES CLOSED. RR EVEN AND UNLABORED. CALL LIGHT WITHIN REACH.
[2024-11-27 01:44] VITALS: BP 126/50
--- NOTE | 2024-11-27 03:30 | NUR ---
pt RESTING IN THE BED WITH EYES CLOSED. RR EVEN AND UNLABORED. CALL LIGHT WITHIN REACH.
--- NOTE | 2024-11-27 04:39 | NUR ---
pt IV ALARMING. DISTAL OCCLUSION. THIS RN NOTICED THAT pt IV WAS LEAKING. THIS RN UNDRESSED IV AND TIGHTENED HUB. IV REDRESSED. pt DENIES ANY OTHER NEEDS AT THIS TIME. CALL LIGHT WITHIN REACH.
[2024-11-27 05:22] LABS: BASOPHILS 0.9 % (0.1-1.2); EOSINOPHILS 8.4 % (0.7-5.8); LYMPHOCYTES 15.5 % (19.3-51.7); MCH 26.1 PG (25.6-32.2); MCHC 32.2 g/dL (32.2-35.5); MCV 81.1 fL (79.4-94.8); MONOCYTES 9.0 % (4.7-12.5); NEUTROPHILS 65.9 % (34.0-71.1); RBC 3.22 M/uL (3.93-5.22)
[2024-11-27 05:37] LABS: ALT (SGPT) 17.0 U/L (14-59); AST (SGOT) 12.0 U/L (15-37); GLOMERULAR FILTRATION RATE,EST 87.0 mL/min (>60); PROTEIN, TOTAL 5.6 g/dL (6.4-8.2); UREA NITROGEN 8.0 mg/dL (7-18)
[2024-11-27 05:38] VITALS: BP 148/60
[2024-11-27 05:41] VITALS: BP 148/60
--- NOTE | 2024-11-27 07:28 | NUR ---
RECEIVED REPORT FROM ELBA MELLO. PATIENT RESTING IN BED, ASSISTED PT WITH HEARING AIDES. PT STATES SHE IS STRTING TO HAVE BACK PAIN, TYLENOL AND OXY GIVEN. NO OTHER NEEDS AT THIS TIME, WHITEBOARD UPDATED, CALL LIGHT IN REACH.
[2024-11-27] MEDS ORDERED: MAGNESIUM SULFATE 2 GM/50 ML BAG IV ONE (09:00)
[2024-11-27 09:13] VITALS: BP 172/70
--- NOTE | 2024-11-27 09:18 | NUR ---
PATIENT IS IN BED AT THIS TIME, SUPERVISOR POULTRY HATCHERY CHARTED VITALS AND I&O'S, WE DID AM CARE, CALL LIGHT WITH IN REACH AND NOTHING ELSE NEEDED AT THIS TIME.
[2024-11-27] MEDS ORDERED: LACTULOSE10 GM/151 PO (09:56)
[2024-11-27 10:02] VITALS: BP 172/70
--- NOTE | 2024-11-27 10:42 | NUR ---
INTO SEE PATIENT. TALKED ABOUT PLAN OF DISCHARGE. PATIENT STATES "I AM GOING HOME I WOULD LIKE HOME HEALTH." PATIENT WANTS TO HAVE A LETTER TO BE SIGNED SO SHE CAN HAVE A WHEELCHAIR LIFT PUT TO THE BUILDING OF HER HOME. TALKED WITH HER ABOUT HAVING HER PRIMARY CARE WRITE IT FOR HER AND TO TURN IT INTO HER CHARGE ACCOUNT AUTHORIZER. PATIENT HAS NO OTHER CM QUESTIONS.
--- NOTE | 2024-11-27 11:01 | NUR ---
IMM EXPLAINED TO PATIENT, PT VERBALIZED UNDERSTANDING WITHOUT QUESTIONS. COPY PROVIDED WITH PATIENT. CM ALSO DISCUSSED DC PLANNING, PT DOES NOT FEEL SHE WILL NEED A NURSE WHEN DISCHARGE, ONLY PT/OT. PT DOES NOT WANT TO HAVE HH AGENCY FROM [facility] AND [facility]. CM VERBALIZED UNDERSTANDING.
--- NOTE | 2024-11-27 11:10 | NUR ---
PT NOT AVAILABLE FOR VISIT. PROVIDED PRAYER.
[2024-11-27] MEDS ORDERED: PREGABALIN50 MG PO (11:43)
[2024-11-27] MEDS ORDERED: PANTOPRAZOLE SO40 MG PO (11:44)
[2024-11-27] MEDS ORDERED: MYRBETRIQ25 MG PO (11:44)
[2024-11-27] MEDS ORDERED: ANUCORT-HC25 MG PR (11:45)
--- NOTE | 2024-11-27 11:45 | NUR ---
MED REC COMPLETE
--- NOTE | 2024-11-27 11:50 | NUR ---
PT AMBULATING AROUND NURSES STATION WITH PHYSICAL THERAPY.
--- NOTE | 2024-11-27 12:05 | NUR ---
PT NOT AVAILABLE FOR VISIT. PROVIDED PRAYER.
[2024-11-27] MEDS ORDERED: AMOX TR-K CLV1 EAC1 PO (12:12)
[2024-11-27] MEDS ORDERED: STIMULANT LAXA1 EACH PO (12:13)
[2024-11-27] MEDS ORDERED: OXYCODONE HCL5 M1 PO (12:14)
--- NOTE | 2024-11-27 12:20 | NUR ---
PATIENT GIVEN D/C PACKET, EDUCATION GIVEN, QUESTIONS ANSWERED. DC PAPER SIGNED BY THIS RN AND PATIENT. WAITING FOR PHARMACY TO COME IN AND SPEAK WITH PATIENT. CARTER REMOVED, TOLERATED WELL.
[2024-11-27 13:15] VITALS: BP 163/9
--- NOTE | 2024-11-27 14:03 | NUR ---
HOME HEALTH FAXED.
== END 2024-11-27 13:15 | disposition home or self-care (01) | DRG 563 ==
LOC: ED 10:09 → MS 17:06
PROVIDERS: Emergency Medicine; ADMIT Family Medicine; ATTEND Family Medicine
DX: S82.831A Other fracture of upper and lower end of right fibula, initial encounter for closed fracture (principal); S32.020A Wedge compression fracture of second lumbar vertebra, initial encounter for closed fracture; N39.0 Urinary tract infection, site not specified; E87.1 Hypo-osmolality and hyponatremia; I10 Essential (primary) hypertension; K21.9 Gastro-esophageal reflux disease without esophagitis; D64.9 Anemia, unspecified; Z66 Do not resuscitate; K59.00 Constipation, unspecified; E78.5 Hyperlipidemia, unspecified; K86.89 Other specified diseases of pancreas; I95.1 Orthostatic hypotension; Z90.710 Acquired absence of both cervix and uterus; Z98.890 Other specified postprocedural states; Z79.899 Other long term (current) drug therapy; Z88.1 Allergy status to other antibiotic agents; Z88.2 Allergy status to sulfonamides; Z88.8 Allergy status to other drugs, medicaments and biological substances; Z82.49 Family history of ischemic heart disease and other diseases of the circulatory system; W18.30XA Fall on same level, unspecified, initial encounter
CPT/HCPCS: 36415; 51702; 70450; 72131; 73560; 73700; 80048; 80053; 81001; 82550; 83735; 84100; 85025; 87088; 90653; 97161; 97530; 97535; 99285-25; A4311; A9270; J1650; J3475; J7030

== ENCOUNTER 2024-12-19 13:31 | Inpatient (IN) | payer MEDICARE, OTHER ==
[~2024-12-19] VITALS: Ht 167.6 cm; Wt 66.3 kg
[~2024-12-19 13:31] MED LIST changes: +BISACODYL10 MG PR; +CALCITONIN-SAL3.7 ML NAS; +CEFPODOXIME PR200 MG PO; +CITALOPRAM HBR10 MG PO; +ESCITALOPRAM OX10 MG PO; +LACTULOSE10 GM PO; +LACTULOSE10 GM/151 PO; +METHOCARBAMOL750 MG PO; +MIRALAX17 GM PO; +OXYCODONE HCL5 M1 PO; +PANTOPRAZOLE SO40 MG PO; +PREGABALIN50 MG PO; +SENNA8.6 MG PO; +STIMULANT LAXA1 EACH PO; +TRAMADOL HCL50 MG PO
--- OUTSIDE RECORDS SUMMARY | 2024-12-19 13:38 | XMS ---
PreManage Notification: CALEB LESTER Security Senior Engineering Associate Events No recent Security Events currently on file CRITERIA MET - 6 ED Visits in 6 Months - [facility] - 2 Visits in 30 Days CARE PROVIDERS There are no care providers on record at this time. Lukasz has no Care Guidelines for this patient. Dinor[facility] VISIT COUNT (12 MO.) 8 [facility] T[facility] NOTE: Visits indicate total known visits. ED/UCC VISIT TRACKING (12 MO.) 12/19/2024 13:31 [facility] [place] [facility] Emergency COMPLAINT: - WEAKNESS 12/14/2024 09:41 [facility] [place] TYPE: Emergency COMPLAINT: - WEAKNESS 11/25/2024 10:09 [facility] [place] TYPE: Emergency COMPLAINT: - LEG PAIN 11/07/2024 08:58 [facility] [place] TYPE: Emergency COMPLAINT: - MEDICATION REACTION DIAGNOSES: - Allergy status to other antibiotic agents - Allergy status to other drugs, medicaments and biological substances - Allergy status to sulfonamides - Essential (primary) hypertension - Other long distance billing operator (current) drug therapy - Upper abdominal pain, unspecified 08/20/2024 23:13 [facility] [place] TYPE: Emergency COMPLAINT: - ABDOMINAL PAIN DIAGNOSES: - Allergy status to other antibiotic agents - Allergy status to other drugs, medicaments and biological substances - Allergy status to sulfonamides - Gastro-esophageal reflux disease without esophagitis - Other hemorrhoids - Other long distance billing operator (current) drug therapy - Other specified diseases of anus and rectum - Urinary tract infection, site not specified 07/13/2024 16:10 [facility] [place] TYPE: Emergency COMPLAINT: - DIARRHEA, WEAKNESS 07/07/2024 10:30 [facility] [place] TYPE: Emergency COMPLAINT: - STROKE SYMPTOMS DIAGNOSES: - Allergy status to other drugs, medicaments and biological substances - Allergy status to sulfonamides - Essential (primary) hypertension - Hypotension, unspecified - bed bug exterminator (current) use of antibiotics - Other fatigue - Other long distance billing operator (current) drug therapy - Urinary tract infection, site not specified 04/01/2024 09:01 [facility] [facility] [place] TYPE: Emergency COMPLAINT: - FALL DIAGNOSES: - Allergy status to other antibiotic agents - Allergy status to other drugs, medicaments and biological substances - Allergy status to sulfonamides - Benign paroxysmal vertigo, bilateral - Benign paroxysmal vertigo, unspecified ear - Dizziness and giddiness - Essential (primary) hypertension - Other prison (current) drug therapy INPATIENT VISIT TRACKING (12 MO.) 12/14/2024 13:[address] [facility] [place] TYPE: Medical Surgical COMPLAINT: - FTT/UTI DIAGNOSES: - Acquired absence of both cervix and uterus - Adult failure to thrive - Adult failure to thrive - Adverse effect of other opioids, initial encounter - Adverse effect of other opioids, initial encounter - Age-related osteoporosis without current pathological fracture - Age-related osteoporosis without current pathological fracture - Allergy status to other antibiotic agents - Allergy status to other drugs, medicaments and biological substances - Allergy status to sulfonamides - Body mass index [BMI] 23.0-23.9, adult - Constipation, unspecified - Do not resuscitate - Do not resuscitate - Drug induced constipation - Drug induced constipation - Essential (primary) hypertension - Essential (primary) hypertension - Gastro-esophageal reflux disease without esophagitis - Hyperlipidemia, unspecified - Hyperlipidemia, unspecified - Hypo-osmolality and hyponatremia - Hypo-osmolality and hyponatremia - Low back pain, unspecified - Major depressive disorder, single episode, unspecified - Major depressive disorder, single episode, unspecified - Other chronic pain - Other long distance billing operator (current) drug therapy - Other prison (current) drug therapy - Other specified diseases of pancreas - Other specified postprocedural states - Personal history of peptic ulcer disease - Personal history of urinary (tract) infections - Personal history of urinary (tract) infections - Unspecified protein-calorie malnutrition - Urinary tract infection, site not specified - Urinary tract infection, site not specified - Weakness 11/25/2024 17:06 [facility] [place] TYPE: Medical Surgical COMPLAINT: - RIGHT FIBULA FRACTURE DIAGNOSES: - Acquired absence of both cervix and uterus - Allergy status to other antibiotic agents - Allergy status to other drugs, medicaments and biological substances - Allergy status to sulfonamides - Anemia, unspecified - Constipation, unspecified - Dizziness and giddiness - Do not resuscitate - Essential (primary) hypertension - Fall on same level, unspecified, initial encounter - Family history of ischemic heart disease and other diseases of the circulatory system - Gastro-esophageal reflux disease without esophagitis - Hyperlipidemia, unspecified - Hypo-osmolality and hyponatremia - Orthostatic hypotension - Other fracture of upper and lower end of right fibula, initial encounter for closed fracture - Other long distance billing operator (current) drug therapy - Other specified diseases of pancreas - Other specified postprocedural states - Urinary tract infection, site not specified - Wedge compression fracture of second lumbar vertebra, initial encounter for closed fracture 07/14/2024 10:30 [facility] [place] TYPE: Medical [...] not specified - Viral intestinal infection, unspecified [email or web address]
[2024-12-19 14:19] LABS: BASOPHILS 0.4 % (0.1-1.2); EOSINOPHILS 1.0 % (0.7-5.8); LYMPHOCYTES 14.3 % (19.3-51.7); MCH 25.4 PG (25.6-32.2); MCHC 32.2 g/dL (32.2-35.5); MCV 78.8 fL (79.4-94.8); MONOCYTES 10.8 % (4.7-12.5); NEUTROPHILS 73.3 % (34.0-71.1); RBC 4.06 M/uL (3.93-5.22)
[2024-12-19 14:36] LABS: ALT (SGPT) 43.0 U/L (14-59); AST (SGOT) 27.0 U/L (15-37); GLOMERULAR FILTRATION RATE,EST 86.0 mL/min (>60); PROTEIN, TOTAL 7.4 g/dL (6.4-8.2); UREA NITROGEN 7.0 mg/dL (7-18)
[2024-12-19 15:22] LABS: BLOOD/HGB, URINE NEGATIVE (Negative); KETONE, URINE NEGATIVE (Negative); LEUK ESTERASE, URINE NEGATIVE (negative); NITRITE, URINE NEGATIVE (negative)
[2024-12-19 15:27] LABS: BACTERIA, URINE NONE SEEN /hpf (negative); CASTS, URINE NONE SEEN \\lpf; CRYSTALS, URINE NONE SEEN (0-1+); REFLEX CULTURE, URINE No (No)
[2024-12-19] MEDS ORDERED: LIDOCAINE 2% VISCOUS 6 ML SYR TOP ONE (16:15)
[2024-12-19] MEDS ORDERED: SODIUM CHLORIDE 0.9% 1,000 ML IV PRN (16:30)
[2024-12-19] MEDS ORDERED: HYDROmorphone HCL 1 MG/ML SYR IV ONE (17:45)
[2024-12-19] MEDS ORDERED: SODIUM CHLORIDE 0.9% 1,000 ML IV SCH (19:15)
[2024-12-19] MEDS ORDERED: ACETAMINOPHEN 325 MG TAB PO PRN (19:15)
[2024-12-19] MEDS ORDERED: MAGNESIUM SULFATE 4 GM/100 ML BAG IV ONE (19:30)
[2024-12-19 20:17] VITALS: BP 158/86
--- NOTE | 2024-12-19 20:52 | NUR ---
2004 - pt admitted to room 109 from ER via stretcher. Oriented to room, pt c/o chronic back pain from back fx hx. Tolerated fair, alert and oriented. Cooperative, friend in room with pt. Mag 4gr started as per orders, IVf infusing LAC. legs elevated. edema to ankles, L more than right, very stiff and painful when turning. f/c in place, not chronic, applied in ER
[2024-12-19] MEDS ORDERED: ATORVASTATIN 40 MG TAB PO SCH (21:00)
[2024-12-19] MEDS ORDERED: OXYCODONE HCL 5 MG TAB PO PRN (21:45)
--- NOTE | 2024-12-19 21:49 | NUR ---
THIS RN CALLED MD ABOUT BEING IN PAIN. MD PLACED NEW ORDERS AND VERIFIED WITH REPEAT BACK METHOD.
[2024-12-19 22:35] VITALS: BP 158/86
--- NOTE | 2024-12-19 23:35 | NUR ---
pt RESTING IN THE BED WITH EYES CLOSED. RR EVEN AND UNLABORED. CALL LIGHT WITHIN REACH.
[2024-12-20] VITALS (11 sets, daily range): BP systolic 145–179; BP diastolic 61–75
--- NOTE | 2024-12-20 01:25 | NUR ---
IN RM TO DO VITAL SIGNS. pt HAD CALLED FOR A WARM BLANKET. pt C/O 06/28 PAIN. PRN PAIN MEDS ADMINISTERED. pt DENIES ANY OTHER NEEDS AT THIS TIME. CALL LIGHT WITHIN REACH. WARM BLANKET PROVIDED. VSS.
--- NOTE | 2024-12-20 03:10 | NUR ---
pt RESTING IN THE BED WITH EYES CLOSED. RR EVEN AND ULABORED. CALL LIGHT WITHIN REACH.
[2024-12-20 05:40] LABS: GLOMERULAR FILTRATION RATE,EST 89.0 mL/min (>60); UREA NITROGEN 7.0 mg/dL (7-18)
[2024-12-20 05:44] LABS: BASOPHILS 1.1 % (0.1-1.2); EOSINOPHILS 6.0 % (0.7-5.8); LYMPHOCYTES 23.3 % (19.3-51.7); MCH 25.6 PG (25.6-32.2); MCHC 32.3 g/dL (32.2-35.5); MCV 79.4 fL (79.4-94.8); MONOCYTES 14.2 % (4.7-12.5); NEUTROPHILS 55.1 % (34.0-71.1); RBC 3.55 M/uL (3.93-5.22)
--- NOTE | 2024-12-20 05:55 | NUR ---
VITAL SIGNS DONE. pt CARTER EMPTIED. IVF INFUSING PER ORDER. DENIES ANY NEEDS AT THIS TIME. CALL LIGHT WITHIN REACH.
[2024-12-20] MEDS ORDERED: FERROUS SULFATE 325 MG TAB PO SCH (08:00)
--- NOTE | 2024-12-20 08:38 | NUR ---
PATIENT IN BED AT THIS TIME. PATIENT DECLINED CHAIR AT THIS TIME. SPLICER HELPER CHARTED HOURLY ROUNDS. CALL LIGHT WITHIN REACH, NO FURTHER NEEDS.
[2024-12-20] MEDS ORDERED: POLYETHYLENE GLYCOL 3350 1 PACKET PO SCH (09:00)
[2024-12-20] MEDS ORDERED: PANTOPRAZOLE SODIUM 40 MG TABEC PO SCH (09:00)
[2024-12-20] MEDS ORDERED: ESCITALOPRAM OXALATE 10 MG TAB PO SCH (09:00)
[2024-12-20] MEDS ORDERED: SENNOSIDES/DOCUSATE 1 EA TAB PO SCH (09:00)
[2024-12-20] MEDS ORDERED: LOSARTAN POTASSIUM 50 MG TAB PO SCH (09:00)
--- NOTE | 2024-12-20 10:06 | NUR ---
PATIENT IN CHAIR AT THIS TIME. DIRECTOR ADVANCED CHARTED VITALS AND I&O'S. CALL LIGHT WITHIN REACH, NO FURTHER NEEDS.
--- NOTE | 2024-12-20 11:35 | NUR ---
Patient sitting up in chair, alert and oriented x3, no acute distress. Patient reports she is doing fine at this time. Patient requesting scheduled bowel aid to prevent constipation-NIO miralax and senna started. IV fluids infusing per order.
[2024-12-20] MEDS ORDERED: PHARMACY RENAL DOSE ADJUSTMENT 1 DOSE MISC PO SCH (12:00)
--- NOTE | 2024-12-20 12:58 | NUR ---
PT RESTING IN BED, C/O PAIN TO BACK 06/28. PAIN MED GIVEN REQUESTED. NO OTHER REQUESTS AT THIS TIME. CALL LIGHT WITHIN REACH.
--- NOTE | 2024-12-20 17:23 | NUR ---
Patient sitting up in bed eating dinner, tolerating well. Patient reports 5/10 back pain, admin tylenol 650mg po at this time. Patient reports she has no needs at this time, hob elevated.
--- NOTE | 2024-12-20 17:50 | NUR ---
TORB from Dr. Espinal to increase scheduled daily losartan to 100mg starting tomorrow. Add hydralazine 10mg iv for SBP of 170 or greater. Orders placed at this time.
--- NOTE | 2024-12-20 18:06 | NUR ---
PT RESTING IN BED, HEAD UP WITH A VISITOR IN THE ROOM. EMPTIED TRASH AND CLEANED UP ROOM. PT HAS WATER, NO ICE BY HER AND CALL LIGHT WITHIN REACH. PT REPORTING NEEDING NOTHING MORE AT THIS TIME.
--- NOTE | 2024-12-20 19:52 | NUR ---
PATIENT IS LAYING IN BED. PATIENT BRUSHED TEETH AND WAS PROVIDED WITH A WARM WASHCLOTH. PATIENTS CALL LIGHT IS WITHIN REACH AND NO FURTHER NEEDS AT THIS TIME.
--- NOTE | 2024-12-20 20:20 | NUR ---
In bed, HS care done, cooperative with vitals and assessments. On room air. Lungs clear bilar, Irregular heart rate, Abd soft, denies distention, stated LBM was 10/28. IVF infusing w/o problems. Hearing aids off at this time, repositioned, tolerated fair
--- NOTE | 2024-12-20 21:15 | NUR ---
MEDICATED WITH OXYCODONE 5MG PO C/O 10/29 BACK PAIN. , LEGS ELEVATED WITH PILLOWS. HOB ELEVATED, AWAKE, WATCHING TV.
--- NOTE | 2024-12-20 23:27 | NUR ---
PT VERY ANXIOUS, CRYING, STAED NO PAIN RELIEF. CRYING. REASSURED, TALKED TO PT FOR SEVERAL MINUTES. CALMED DOWN. REPOSITIONED FOR COMFORT. " THE OXYCODONE SHOULD HAVE PUT ME TO SLEEP BUT IT HAS NOT," DECLINED WARM PADS "JULIAN TOO HOT ALREADY", "MY LEGS HURT, IT DID NOT USED TO HURT BEFORE". REPOSITIONED,
--- NOTE | 2024-12-20 23:35 | NUR ---
pt c/o 09/28 back pain and spasms, medicated with tylenol,
[2024-12-21] VITALS (13 sets, daily range): BP systolic 140–191; BP diastolic 54–72
--- NOTE | 2024-12-21 01:21 | NUR ---
Pt c/o "theres something wrong with my catherer","I have a UTI, was on antibiotics and you stopped them when I got here," "No you dont understnad, I had a UTI even if the new urine sample says that Is clear and no infection, I still have an infection and need an abx". F/c assessed, no kinks at this time, draining QS clear yellow urine. Explained to pt, still very irritated, declined to reposition. f/c patent.
--- NOTE | 2024-12-21 02:53 | NUR ---
awake, c/o back spasms pain and bladder pain. Medicated with Oxycodone 5mg po. "I think I have an UTI, theres something wrong with it". F/C assessed no kinks, draining clear yellow urine. QS. reassured, calmed down. IVF infusing w/o problems. F?C patent
--- NOTE | 2024-12-21 04:42 | NUR ---
Resting, eyes closed, no s/sx distress, calmer, IVF infusing w/o problems. F/c patent
--- NOTE | 2024-12-21 05:38 | NUR ---
MEDICATED WITH TYLENOL 650MG PO PER C/O BACK PAIN. ON ROOM AIR, DECLINED TO BE REPOSITINED. HOB ELEVATED. F/C PATENT. IVF INFUSING W/O PROBLEMS.
--- NOTE | 2024-12-21 05:41 | NUR ---
PATIENT IS LAYING IN BED. PATIENT WAS CONCERNED HER CATHETER WAS HURTING. CATHETER CARE WAS PREFORMED. DISTCHARGE WAS NOTED AND RN LELO WAS NOTIFIED. CALL LIGHT IS WITHIN REACH AND NO FURTHER NEEDS AT THIS TIME.
--- NOTE | 2024-12-21 06:43 | NUR ---
hydralazine effective BP 140/54, no furrther c/o pain, resting, eyes closed,
--- NOTE | 2024-12-21 07:15 | NUR ---
PT USED CALL LIGHT, HAVING INVOLUNTARY LEG AND ARMS TREMORS, STOPPED AT WILL. DENIES HAVING RESTLESS LEGS NOW OR THE PAST. 'I JUST DONT FEEL GOOD, I THINK I HAVE ANOTHER UTI AND IS NOT BEING TREATED'. REASSURED, VITALS DONE, DENIES BEING IN PAIN. ON ROOM AIR. IVF INFUSING W/O PROBLEMS. F/C PATENT. EDEMA TO LEGS NO CHANGES, GOOD PULSES AND SENSTION. ELEVATED WITH PILLOWS
--- NOTE | 2024-12-21 07:17 | NUR ---
PT WAS NOT COMMUNICATING WITH NIGHT FEED ELEVATOR WORKER. NIGHT FEED ELEVATOR WORKER ASKED FOR ASSISTANCE - ELBA LIND AND TWO OTHER FEED ELEVATOR WORKER'S WENT INTO PT'S ROOM - RN TOOK VITALS - THIS FEED ELEVATOR WORKER WAS ASKED TO RECORD THEM. PT COMMENTED THAT SHE DID NOT FEEL GOOD, BUT WAS ABLE TO STOP MOVING HER LEGS WHEN THE RN ASKED HER TO HOLD STILL WHILE THE BP CUFF WAS INFLATING. PT SEEMED TO CALM DOWN AND WAS ABLE TO ANSWER VERBAL COMMUNICATIONS FROM FEED ELEVATOR WORKER'S AND RN WITHIN MINUTES. RN ASKED THIS FEED ELEVATOR WORKER TO DOCUMENT THIS VITAL SET.
--- NOTE | 2024-12-21 07:48 | NUR ---
INTO ROOM TO ANSWER CALL LIGHT. PT LOOKING AT WALL, LEGS SHAKING. PT REPORTED THAT SHE'S BEEN HAVING THESE "LEG SPASMS" AND HAS BEEN UNABLE TO CONTROL THEM. PT ABLE TO FOLLOW DIRECTIONS, LIFT BOTH ARMS AND LEGS OFF BED. PT DENIED ANY NUMBNESS OR TINGLING IN FEET. PUPILS EQUAL AND REACTIVE. PT REPORTS BEING CONCERNED FOR UTI. CLEAR URINE OUT IN CARTER CATH AT BEDSIDE. PT REPORTS BEING UNCOMFORTABLE, ASSISTED WITH READJUSTING IN BED.
--- NOTE | 2024-12-21 08:14 | NUR ---
REPORT RECEIVED. PATIENT IN BED, CALL LIGHT IN REACH.
[2024-12-21] MEDS ORDERED: LOSARTAN POTASSIUM 100 MG TAB PO SCH (09:00)
--- NOTE | 2024-12-21 09:00 | NUR ---
PATIENT IN BED, CALL LIGHT AND PERSONAL BELONGINGS IN REACH. SCHEDULED MEDICATIONS ADMINISTERED.
--- NOTE | 2024-12-21 09:05 | NUR ---
HOURLY ROUNDIN PATIENT NOT IN THE MOOD TO EAT NURSE HAS BEEN NOTIFIED AND NOTIFIED OF HIGH BLOOD PRESSURE. NO REQUEST FROM PATIENT AT THIS TIME. CALL LIGHT HAS BEEN PLACED WITHIN REACH BOARD UPDATED
--- NOTE | 2024-12-21 09:51 | NUR ---
PATIENT IN BED, CALL LIGHT IN REACH.
--- NOTE | 2024-12-21 11:06 | NUR ---
PATIENT IN BED, CALL LIGHT AND PERSONAL BELONGINGS IN REACH
--- NOTE | 2024-12-21 11:31 | NUR ---
PATIENT IN BED, CALL LIGHT IN REACH. EYES CLOSED, CHEST RISE EVEN AND UNLABORED.
--- NOTE | 2024-12-21 12:15 | NUR ---
PATIENT N BED, LUNCH AT BEDSIDE. ASSISTED PATIENT TO SET UP LUNCH TRAY. CALL LIGHT IN REACH. SCHEDULED MEDICATIONS ADMINISTERED.
--- NOTE | 2024-12-21 12:45 | NUR ---
HOURLY ROUNDING PATIENT BLOOD PRESSURE HIGH NURSE NOTIFIED, CALL LIGHT HAS BEEN PLACED WITHIN REACH
--- NOTE | 2024-12-21 13:04 | NUR ---
PATIENT IN BED, FRIEND AT BEDSIDE. CALL LIGHT AND PERSONAL BELONGINGS IN REACH. BROOK CARE/ CATH CARE COMPLETED. REVIEWED IMPORTANCE OF MOVEMENT, PROPER NUTRITION, AND PARTICIPATION IN ADLS TO IMPROVE FEELING OF FATIGUE
--- NOTE | 2024-12-21 13:26 | NUR ---
PHYSICAL THERAPY IN ROOM. PATIENT AMBULATED TO CHAIR. BED CHANGE COMPLETED. PATIENT PROVIDED WITH WARM WASHCLOTH FOR HER FACE. CALL LIGHT AND PERSONAL BELONGINGS IN REACH OF PATIENT.
--- NOTE | 2024-12-21 15:13 | EKG ---
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
--- NOTE | 2024-12-21 15:54 | NUR ---
PATIENT IN BED, CALL LIGHT IN REACH. PRN PAIN MEDICATION ADMINISTERED PER PATIENT REQUEST. BED BATH COMPLETED. PATIENT PROVIDED WITH NEW SOCKS AND WARM BLANKET. CALL LIGHT AND PERSONAL BELONGINGS IN REACH OF PATIENT. PATIENT DENIES CONCERNS AT THIS TIME.
--- NOTE | 2024-12-21 16:11 | NUR ---
PATIENT IN BED, CALL LIGHT IN REACH. SCHEDULED MEDICATION ADMINISTERED. PATIENT DENIES CONCERNS.
[2024-12-21 16:55] LABS: IRON BINDING CAPACITY TOTAL 351 ug/dL (240-450); IRON,SERUM OR PLASMA 22 ug/dL (28-170); TRANSFERRIN SATURATION 6 %sat (20-50)
--- NOTE | 2024-12-21 17:37 | NUR ---
PATIENT IN BED, FRIEND AT BEDSIDE. ASSISTED PATIENT TO SET UP DINNER TRAY. CALL LIGHT AND PERSONAL BELONGINGS IN REACH OF PATIENT. PATIENT DENIES CONCERNS AT THIS TIME.
--- NOTE | 2024-12-21 18:02 | NUR ---
HOURLY ROUNDING PATIENT VISITING WITH A FRIEND NO REQUEST FROM PATIENT AT THIS TIME
--- NOTE | 2024-12-21 19:19 | NUR ---
Resting eyes closed, on room air, awakens easily, no c/o pain, spasms or tremors at this time, no c/o f/c issues. f/c patent draining clear yellow urine.
--- NOTE | 2024-12-21 21:36 | NUR ---
awakens easily, c/o back and bladder pain, medicated with Oxycodone 5mg po. On room air, clear lungs, denies CP, abd soft, non tender, LBM 12/16. gets Miralax and Senna tabs. IVF infusing w/o problems. bruised upperarms and legs improving, elevated. Helped with repositioning. Has had multiple c/o about f/c. F/c patent, no kings, care done, draining medium colored yellow urine. Tried to resolve all her questions and concerns r/t catherer with minor satisfaction . no c/o muscle spasmas at this time.
--- NOTE | 2024-12-21 23:37 | NUR ---
Resting, eyes closed, no s/sx distress. f/c patent, IVF infusing w/o problems.
[2024-12-22] VITALS (8 sets, daily range): BP systolic 146–193; BP diastolic 65–83
--- NOTE | 2024-12-22 01:40 | NUR ---
Resting, eyes closed, no s/sx distress. f/c patent, IVF infusing w/o problems
--- NOTE | 2024-12-22 03:15 | NUR ---
CALL LIGHT ANSWERED. PT REPORTS ROOM TOO HOT AND FEELINGS OF A "FULL BLADDER." CARTER PATENT WITH YELLOW URINE. URINE ALSO NOTED IN CARTER TUBING WITH MANIPULATION. ROOM TEMP ADJUSTED. PRIMARY RN UPDATED.
--- NOTE | 2024-12-22 05:53 | NUR ---
VS AND I&O COMPLETED. SYSTOLIC GREATER THAN 180, PRN MED PROVIDED. PT STATES SHE HAS IRRITATION AT THE CARTER/[place]TH[place] AREA, CARTER CHECKED. PT STATES SHE FEELS IT IS NOT DRAINING, BLADDER SCAN REVEALS 30ML IN BLADDER. PT REASSURED OF CORRECT PLACEMENT AND OUTPUT. PT STATES NO OTHER NEEDS AT THIS TIME. CALL LIGHT IN REACH.
--- NOTE | 2024-12-22 06:32 | NUR ---
BP RECHECKED, SYSTOLIC NOW UNDER 180 AFTER PRN HTN MED. CALL LIGHT IN REACH.
--- NOTE | 2024-12-22 07:01 | NUR ---
Pt report received from ELBA Schaefer. Pt is resting supine in bed, quiet, reports pain is 7 out of 10 in her urethra, states it feels like pressure like she has to pee. Pt also reports her back and knee hurt. Pt denies further needs at this time. Call light in reach, side rails up x4.
--- NOTE | 2024-12-22 07:24 | NUR ---
PT STATES SHE HAS 9/10 BLADDER PAIN, URGE TO PUSH. PRN PAIN MED PROVIDED. PRIMARY DAY RN NOTIFIED.
--- NOTE | 2024-12-22 08:00 | NUR ---
INTO SEE PATIENT. PERSONAL HEALTH INFORMATION REVIEWED. PATIENT RECENTLY WAS ADMITTED LAST WEEK 12/16. SHE LIVES ALONE. PATIENT HAS A SON THAT L[place] THAT HELPS OCCASIONALLY. WHEN ASKED ABOUT A SNF PATIENT STATES "I WILL NOT CONSIDER ONE I AM NOT MEDICALLY CLEARED GO ANYWHERE. I WILL SIGN AND CALL MEDICARE IF YOU TRY TO DISCHARGE ME TODAY." MD WILL BE IN TO DISCUSS PLAN OF CARE AND THERAPIES WILL BE IN FOR RECCOMENDATIONS.
--- NOTE | 2024-12-22 08:03 | NUR ---
PC to Dr. Espinal to request an order to collect urine for a UA as the pt continues to complain, daily, that she knows her body and that she knows she has a UTI. She also c/o urethral discomfort. Verbal order obtained from Dr. Espinal to collect urine for a UA and for PO Pyridium 200mg TID for a couple of days. Repeated orders back for clarification, and entered them.
--- NOTE | 2024-12-22 08:17 | NUR ---
MED REC COMPLETE
--- NOTE | 2024-12-22 08:40 | NUR ---
In with pt for medication administration and billings assessment, urine collection for UA. Pt is tearful and painful, reports 10 out of 10 pain in her bladder. She reports it feels like pressure like she has to pee. Meds administered PO. Urine collection port cleaned with alcohol swab and urine collected for sample, labeled at bedside after verifying patient information, and sent to the lab. Manipulated catheter tubing and bladder was emptied of approximately 600ml clear yellow urine. A short time after this, pt pain subsided and she appears much more relaxed and calm, stating that the pain is much diminished. She also states she knows what a UTI feels like because she gets them chronically, and this is a UTI. Advised pt of the plan to send off her urine for testing and that I administered pyridium as ordered. She has had oxy this morning around 0730 hours. She states that only helps her back, not her bladder. Pt's son arrives and was updated. He left his phone number and asks that we contact him any time her pain seems out of control and he will come and be with her. Pt breakfast tray reheated and set up for her at this time as she states she feels she can eat something now. Call light in reach.
[2024-12-22 08:58] LABS: BLOOD/HGB, URINE TRACE-I (Negative); KETONE, URINE NEGATIVE (Negative); LEUK ESTERASE, URINE SMALL (negative); NITRITE, URINE NEGATIVE (negative)
[2024-12-22] MEDS ORDERED: PHENAZOPYRIDINE HCL 100 MG TAB PO SCH (09:00)
[2024-12-22 09:06] LABS: CASTS, URINE NONE SEEN \\lpf; CRYSTALS, URINE NONE SEEN (0-1+); EPITHELIAL CELLS, URINE SQUAMOUS 1+ /lpf (0-1+)
[2024-12-22 09:07] LABS: BACTERIA, URINE 1+ /hpf (negative); REFLEX CULTURE, URINE Yes (No)
--- NOTE | 2024-12-22 10:10 | NUR ---
Pt reports her bladder is started to hurt again. Villarreal catheter is draining freely, orange colored urine. Hot pack wrapped in pillow case placed on pt's lower abdomen for comfort. Call light in reach.
--- NOTE | 2024-12-22 11:00 | NUR ---
INTO TO ROOM WITH MD. PATIENT AGREEABLE TO PLAN OF CARE. PATIENT WILL CONSIDER SNF. PATIENT CHOICE GIVEN. PATIENT ONLY WANTS CHART SENT TO [facility]. CHART FAXED TO [facility]. 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 PATIENT SPOKE ABOUT [facility] BEING AN OPTION. ALSO TALKED WITH HER ABOUT HALFWAY MEDICAID POTENTIALLY.
--- NOTE | 2024-12-22 11:16 | NUR ---
CHART FAXED TO [facility].
--- NOTE | 2024-12-22 11:41 | NUR ---
In with pt for abx administration. Pt is distressed because "it's too late to change my lunch order and I don't want what they are serving for lunch". I asked the pt what it is she would like to eat and she said, "Chicken noodle soup, crackers, and a sugar cookie." I called dietary and requested this for the pt and they advised this would be taken care of. Updated pt on this.
--- NOTE | 2024-12-22 13:14 | NUR ---
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 MEDICARE INPT 12/19/24 @ 1925 ORDER MATCHES REG NO AUTH REQUIRED MEDICARE GUIDELINES DISCHARGE PENDING FURTHER CASE MANAGEMENT EVAL
--- NOTE | 2024-12-22 13:51 | NUR ---
PATIENT ACCEPTED AT [facility].
--- NOTE | 2024-12-22 18:57 | NUR ---
In with pt to answer her questions. Pt reports swelling in her fingers and hands. Elevated pt's hands and arms on pillows while she is in bed. Pt states she would like a suppository because she knows she still has stool in her bowels after having a large BM this shift. Reminded pt that she will be receiving miralax and senokot this evening. Pt verbalized understanding. Call light in reach. Pt requests a pain med, stating she would like to have it in about an hour. I updated pt's production shift supervisor RN.
--- NOTE | 2024-12-22 19:05 | NUR ---
REPORT RECEIVED FROM KELLI ARREOLA. pt RESTING IN THE BED. BOARD UPDATED. pt DENIES ANY NEEDS AT THIS TIME. CALL LIGHT WITHIN REACH.
--- NOTE | 2024-12-22 20:30 | NUR ---
ASSESSMENT AND VITAL SIGNS DONE. pt RESTING IN THE BED. pt C/O 5/10 PAIN. PRN PAIN MEDS ADMINISTERED. SCHEDULED MEDS ADMINISTERED. CARTER EMPTIED. CARTER CARE DONE. pt DENIES ANY OTHER NEEDS AT THIS TIME. CALL LIGHT WITHIN REACH.
[2024-12-22] MEDS ORDERED: LIDOCAINE 2% VISCOUS 6 ML SYR TOP ONE (22:15)
[2024-12-22] MEDS ORDERED: OXYCODONE HCL 5 MG TAB PO PRN (22:15)
--- NOTE | 2024-12-22 22:15 | NUR ---
THIS RN CALLED MD AMBROSE FOR pt HAVING SEVERE PAIN IN HER BACK. pt STATES IT IS A 9/10 PAIN IN HER BACK. PLACED ORDERS IN THE COMPUTER. THIS RN VERIFIED WITH REPEAT BACK METHOD. pt DENIES ANY OTHER NEEDS AT THIS TIME. CALL LIGHT WITHIN REACH.
[2024-12-23] VITALS (8 sets, daily range): BP systolic 136–177; BP diastolic 62–73
[2024-12-23] MEDS ORDERED: LIDOCAINE 2% VISCOUS 6 ML SYR ONE (00:19)
--- NOTE | 2024-12-23 00:44 | NUR ---
IN RM TO CHECK ON pt AND ADMINISTER UROJECT. pt STATES HER PAIN IS A LOT BETTER AT THIS TIME. pt DENIES ANY NEEDS AT THIS TIME. CALL LIGHT WITHIN REACH.
--- NOTE | 2024-12-23 01:55 | NUR ---
pt RESTING IN THE BED WITH EYES CLOSED. RR EVEN AND UNLABORED. CALL LIGHT WITHIN REACH.
--- NOTE | 2024-12-23 03:25 | NUR ---
pt RESTING IN THE BED WITH EYES CLOSED. RR EVEN AND UNLABORED. CALL LIGHT WITHIN REACH.
[2024-12-23 05:52] LABS: ALT (SGPT) 28.0 U/L (14-59); AST (SGOT) 17.0 U/L (15-37); GLOMERULAR FILTRATION RATE,EST 89.0 mL/min (>60); PROTEIN, TOTAL 6.1 g/dL (6.4-8.2); UREA NITROGEN 7.0 mg/dL (7-18)
[2024-12-23 05:54] LABS: BASOPHILS 0.9 % (0.1-1.2); EOSINOPHILS 4.6 % (0.7-5.8); LYMPHOCYTES 16.5 % (19.3-51.7); MCH 25.3 PG (25.6-32.2); MCHC 32.3 g/dL (32.2-35.5); MCV 78.4 fL (79.4-94.8); MONOCYTES 11.1 % (4.7-12.5); NEUTROPHILS 66.7 % (34.0-71.1); RBC 3.79 M/uL (3.93-5.22)
--- NOTE | 2024-12-23 06:01 | NUR ---
pt RESTING IN THE BED. CARTER EMTIED. pt STATED SHE FELT LIKE HER CARTER WASN'T WORKING. THIS RN ADJUSTED THE CARTER AND GOT SOME MORE URINE TO FLOW. VITAL SIGNS DONE. NEW BAG OF IVF INFUSING PER ORDER. PRN BP MEDS ADMINISTERED. pt DENIES ANY NEEDS AT THIS TIME. CALL LIGHT WITHIN REACH.
--- NOTE | 2024-12-23 07:11 | NUR ---
VERBAL REPORT RECEIVED FROM ELBA MELLO. PT RESTS IN BED WITH EYES CLOSED, RESP EVEN AND UNLABORED.
[2024-12-23] MEDS ORDERED: MAGNESIUM SULFATE 2 GM/50 ML BAG IV SCH (08:00)
--- NOTE | 2024-12-23 09:20 | NUR ---
Spoke with Amena. She is not feeling well and does not want to dc today. She complains of feeling shakey and not well. She declines to leave today. She mentioned yesterday she will file a Medicare appeal is we attempt to dc. Dr. Mosquera notified. I updated Adin at [facility], pt does not want to dc today. They have a bed open for her tomorrow morning.
--- NOTE | 2024-12-23 09:58 | NUR ---
PATIENT IN BED RESTING WITH EYES CLOSED AT THIS TIME. PATIENT APPEARS TO BE COMFORTABLE. VITALS DONE AND CHARTED BY HANDBAG STITCHER AND RN. I&O'S CHARTED. AM CARE, BROOK CARE, CATH CARE DONE. CALL LIGHT IN REACH. NO FURTHER NEEDS AT THIS TIME.
[2024-12-23] MEDS ORDERED: CIPROFLOXACIN 500 MG TAB PO SCH (11:14)
--- NOTE | 2024-12-23 11:31 | NUR ---
PT RESTS IN BED WITH EYES CLOSED, RESP EVEN AND UNLABORED. PT ROUSES EASILY TO VERBAL STIMULI. PT TAKES SCHEDULED MEDICATION. BELONGINGS IN REACH. CALL LIGHT IN REACH. NO REQUESTS AT THIS TIME.
--- NOTE | 2024-12-23 13:28 | NUR ---
Spoke with Amena. She is again stating she does not feel well. She does not feel well enough to leave tomorrow. I let her know, [facility] has a bed open for her tomorrow. She again is stating she doesn't feel well.
--- NOTE | 2024-12-23 14:07 | NUR ---
PT SAID SHE DOES NOT FEEL LIKE SHE COULD DO A SHOWER TODAY, SHE SAID SHE "TOOK TWO OXYDODONE'S LAST NIGHT AND I NEED THEM TO WEAR OFF". PT HAD HER EYES CLOSED ALMOST THE ENTIRE TIME I WAS IN THE ROOM. [facility] BAR HOSTESS DID VITALS, BUT PT'S LUNCH WAS STILL IN THE ROOM AND HAD NOT BEEN TOUCHED SO THIS METAL GAUGE MAKER DOCUMENTED LUNCH REPORT. GOT PT FRESH ICE WATER AND MADE SURE THE PT HAD HER CALL LIGHT RIGHT NEXT TO HER HAND. CLEANED UP PT'S ROOM AND REPLACED MEDIUM GLOVES FOR THE EMPTY BOX IN HER GLOVE RACK.
--- NOTE | 2024-12-23 14:54 | NUR ---
PT SITS UP IN BED, AWAKE AND ALERT, VISITOR X1 IN ROOM. PT TAKES SCHEDULED MEDICATIONS. CARTER CONITINUES TO DRAIN CLEAR ORANGE URINE TO GRAVITY. CASEMANAGEMENT AND PHYSICAL THERAPY IN ROOM.
--- NOTE | 2024-12-23 16:28 | NUR ---
NS INFUSION COMPLETE, NEW BAG STARTED WITH NEW TUBING. PT DENIES ANY FURTHER NEEDS AT THIS TIME.
--- NOTE | 2024-12-23 18:37 | NUR ---
PT RESTING IN BED, HEAD UP AND TV ON. PT REPORTS A FRIEND IS COMING TO SEE HER ONE MORE TIME TODAY. PT REPORTED FEELING "LESS GROGGY" THAN EARLIER TODAY. CLEANED UP ROOM, TOOK OUT ROOM TRASH, AND GOT THE PT FRESH WATER, NO ICE. PT HAS CALL LIGHT NEXT TO HER IN THE BED AND REPORTS NEEDING NOTHING MORE AT THIS TIME.
--- NOTE | 2024-12-23 18:40 | NUR ---
PT HAD REFUSED A SHOWER EARLIER IN THE DAY, AND WAS SLEEPING MOST OF THE AFTERNOON. WHEN THE PT WOKE UP BEFORE DINNER SHE REPORTED FEELING "LESS GROGGY" AND ATE MUCH BETTER THAN EARLIER MEALS. PT ASKED IF WE COULD WAIT AND DO A BED BATH TOMORROW. I GOT THE PT A WARM WASH CLOTH AND WASHED HER FACE AND HANDS. I ALSO PUT SOME CREAM ON HER ARMS AND LOWER LEGS. GOT THE PT FRESH WATER AND MADE SURE HER CALL LIGHT AND WATER WERE WITHIN REACH. PT LET ME LEAVE HER ROOM LIGHTS ON.
--- NOTE | 2024-12-23 19:05 | NUR ---
REPORT RECEIVED FROM HANNA ARREOLA. pt RESTING IN THE BED. RR EVEN AND UNLABORED. CALL LIGHT WITHIN REACH. BOARD UPDATED.
--- NOTE | 2024-12-23 21:05 | NUR ---
ASSESSMENT AND VITAL SIGNS DONE. CARTER CARE DONE. BRIEF CHANGED. pt REFUSED PAIN MEDS AT THIS TIME. IV ASSESSED, WNL. SCHEDULED MEDS ADMINISTERED. pt DENIES ANY NEEDS AT THIS TIME. CALL LIGHT WITHIN REACH.
--- NOTE | 2024-12-23 23:12 | NUR ---
pt RESTING IN THE BED WITH EYES CLOSED. RR EVEN AND UNLABORED. CALL LIGHT WITHIN REACH.
[2024-12-24] VITALS (7 sets, daily range): BP systolic 173–183; BP diastolic 72–86
--- NOTE | 2024-12-24 02:03 | NUR ---
pt CALLED THIS RN IN FOR BURNING AROUND THE CATHETER SITE. THIS RN ASSESSED THE SITE, SITE IS A LITTLE RED AND IRRATED AND SLIGHTLY SWOLLEN. THIS RN CLEANED AREA. pt STATES IT FEELS A LITTLE BETTER. pt DENIES ANY OTHER NEEDS AT THIS TIME. CALL LIGHT WITHIN REACH.
--- NOTE | 2024-12-24 03:22 | NUR ---
pt RESTING IN THE BED WITH EYES CLOSED. RR EVEN AND UNLABORED. CALL LIGHT WITHIN REACH.
--- NOTE | 2024-12-24 04:30 | NUR ---
pt CALLED RN TO AND STATED HER BLADDER HAD A BURNING PAIN. THIS RN ASSESSED pt BLADDER AND CATHETER. pt BLADDER TENDER WITH PALPATATION AND pt C/O 6/10 PAIN. PRN PAIN MEDS ADMINISTERED. THIS RN BLADDER SCANNED pt TO BE SURE THE CATHETER WAS WORKING. NO URINE IN THE BLADDER, CATHETER IS WORKING. VITAL SIGNS AND I&O'S DONE. pt DENIES ANY NEEDS AT THIS TIME. CALL LIGHT WITHIN REACH.
--- NOTE | 2024-12-24 05:04 | NUR ---
PRN BP MEDS ADMINISTERED. pt DENIES ANY OTHER NEEDS AT THIS TIME. CALL LIGHT WITHIN REACH.
[2024-12-24 05:31] LABS: BASOPHILS 0.6 % (0.1-1.2); EOSINOPHILS 3.8 % (0.7-5.8); LYMPHOCYTES 9.0 % (19.3-51.7); MCH 25.3 PG (25.6-32.2); MCHC 32.2 g/dL (32.2-35.5); MCV 78.8 fL (79.4-94.8); MONOCYTES 9.4 % (4.7-12.5); NEUTROPHILS 77.0 % (34.0-71.1); RBC 3.63 M/uL (3.93-5.22)
[2024-12-24 05:43] LABS: GLOMERULAR FILTRATION RATE,EST 90.0 mL/min (>60); UREA NITROGEN 6.0 mg/dL (7-18)
--- NOTE | 2024-12-24 07:06 | NUR ---
RECIEVED REPORT FROM ELBA HELLER. PT IS RESTING IN BED WITH EYES CLOSED. RR ARE EVEN AND UNLABORED. CALL LIGHT AND PERSONAL BELONGINGS ARE WITHIN REACH.
[2024-12-24] MEDS ORDERED: CIPROFLOXACIN 500 MG TAB PO SCH (08:00)
--- NOTE | 2024-12-24 08:23 | NUR ---
PATIENT IN BED AT THIS TIME. INTERNATIONAL CONTROLLER CHARTED HOURLY ROUNDS, INTERNATIONAL CONTROLLER NOTIFIED RN BRENDA OF PAIN. CALL LIGHT WITHIN REACH, NO FURTHER NEEDS.
[2024-12-24] MEDS ORDERED: MAGNESIUM CHLORIDE 64 MG TABCR PO ONE (09:00)
--- NOTE | 2024-12-24 09:05 | NUR ---
Spoke with Amena with Dr. Mosquera. Pt complaining of not feeling well. She is complaining of a pain in her ribs on the right. Does not feel she can discharge today. Dr. Mosquera encouraged her to work with PT to see if moving around would make her feel better. I spoke with PT and they will see her next. I updated Ad[facility] at [facility] as they were expecting the pt to dc this morning. [facility] is agreeable to an after lunch admit. I scheduled the [facility] van for 12:45 as pt has changed her mind and does not want to bother her son to transport. Notified by PT, pt did well walking in the back. Pt is now agreeable to go to [facility] today.
--- NOTE | 2024-12-24 09:13 | NUR ---
PATIENT IN BED AT THIS TIME. SALES REPRESENTATIVE WIRE ROPE CHARTED VITALS AND I&O'S. CALL LIGHT WITHIN REACH, NO FURTHER NEEDS.
--- NOTE | 2024-12-24 09:16 | NUR ---
PATIENT IS WORKING WITH PHYSICAL THERAPY AT THIS TIME.
--- NOTE | 2024-12-24 10:17 | NUR ---
PATIENT IS SITTING IN THE CHAIR WITH BILATERAL LOWER EXTREMITIES ELEVATED. PATIENT WITH EYES OPEN AND RESPIRATIONS ARE EVEN AND UNLABORED. PATIENT REPORTS PAIN 3/10 IN THE BACK AND IS REQUESTING SOMETHING FOR PAIN. PATIENT IS HARD OF HEARING. PATIENT IS REQUESTING OXYCODONE AT THIS TIME. FULL ASSESSMENT COMPLETE AND DOCUMENTED IN THE CHART. PATIENT STATED NO FURTHER NEEDS AT THIS TIME. CALL LIGHT AND PERSONAL BELONGINGS ARE WITHIN REACH.
[2024-12-24] MEDS ORDERED: CIPROFLOXACIN500 MG PO (10:19)
[2024-12-24] MEDS ORDERED: FERROUS SULFAT325 M2 PO (10:20)
[2024-12-24] MEDS ORDERED: LOSARTAN POTAS100 MG PO (10:20)
[2024-12-24] MEDS ORDERED: OXYCODONE HCL5 M1 PO (10:21)
--- NOTE | 2024-12-24 10:40 | NUR ---
SNF orders and RX received. Faxed orders, PAS[facility], RX, emar to [facility].
--- NOTE | 2024-12-24 10:45 | NUR ---
PT GIVEN ONE TAB OXY PER PT REQUEST. THEN ASSISTED WITH FWW BACK TO BED DUE TO INTOLERANCE OF SITTING IN CHAIR. CALL LIGHT IN REACH. LEGS ON PILLOWS. ARM ON PILLOW.
[2024-12-24] MEDS ORDERED: FERROUS SULFATE 325 MG TAB PO SCH ×2 (11:00→12:00)
--- NOTE | 2024-12-24 11:20 | NUR ---
PT SITTING UP IN BED, TALKING ON PHONE. RR EVEN AND UNLABORED. CALL LIGHT AND PERSONAL BELONGINGS ARE WITHIN REACH.
--- NOTE | 2024-12-24 12:04 | NUR ---
REPORT GIVEN TO DEBBIE AT [facility].
--- NOTE | 2024-12-24 12:34 | NUR ---
PATIENT IN BED AT THIS TIME. THIS PEWTER CASTER AND ELBA CARRANZA GAVE PATIENT BEDBATH AND PROVIDED PATIENT WITH CARTER CARE. CALL LIGHT WITHIN REACH, NO FURTHER NEEDS.
--- NOTE | 2024-12-24 12:40 | NUR ---
NOTIFIED OF PATIENT MOST RECENT BLOOD PRESSURE SYSTOLIC OF 173 AND ALREADY IV BEING REMOVED. MD STATED HE WOULD PUT IN AN ORDER FOR PO HYDRALAZINE ONCE AT THIS TIME. WITH NO FURTHER ORDERS.
== END 2024-12-24 13:00 | DRG 74 ==
LOC: ED 13:31 → MS 19:25
PROVIDERS: ADMIT Internal Medicine; ATTEND Family Medicine
PROC: 0T9B70Z Drainage of Bladder with Drainage Device, Via Natural or Artificial Opening (ICD-10-PCS; principal; 2024-12-19)
DX: G60.9 Hereditary and idiopathic neuropathy, unspecified (principal); S32.029A Unspecified fracture of second lumbar vertebra, initial encounter for closed fracture; N39.0 Urinary tract infection, site not specified; E87.1 Hypo-osmolality and hyponatremia; X58.XXXA Exposure to other specified factors, initial encounter; D64.9 Anemia, unspecified; S82.831A Other fracture of upper and lower end of right fibula, initial encounter for closed fracture; R73.9 Hyperglycemia, unspecified; E83.42 Hypomagnesemia; R35.89 Other polyuria; M62.838 Other muscle spasm; I10 Essential (primary) hypertension; K21.9 Gastro-esophageal reflux disease without esophagitis; K59.00 Constipation, unspecified; Z88.2 Allergy status to sulfonamides; Z88.1 Allergy status to other antibiotic agents; Z88.8 Allergy status to other drugs, medicaments and biological substances
CPT/HCPCS: 36415; 51702; 51798; 71045; 80048; 80053; 81001; 82607; 83036; 83550; 83735; 84443; 84484; 85025; 96374; 97161; 97166; 97530; 97535; 99285-25; A4311; A9270; J0360; J1171; J3475; J7030

== ENCOUNTER 2024-12-31 18:39 | Emergency (ER) | payer MEDICARE, OTHER | END 2025-01-01 09:22 | disposition home or self-care (01) | LOC: ED 18:39 | DX: T83.511A Infection and inflammatory reaction due to indwelling urethral catheter, initial encounter (principal); N39.0 Urinary tract infection, site not specified; I10 Essential (primary) hypertension; Z88.2 Allergy status to sulfonamides; Z88.1 Allergy status to other antibiotic agents; Z88.8 Allergy status to other drugs, medicaments and biological substances; Z79.899 Other long term (current) drug therapy; Z90.710 Acquired absence of both cervix and uterus ==